=== PATIENT | male | born 1935 | race Caucasian/White ===

== ENCOUNTER 2019-11-25 06:15 | Emergency (ER) | payer MEDICARE, SELFPAY ==
[2019-11-25] VITALS (7 sets, daily range): BP systolic 107–131; BP diastolic 65–82; PULSE 66–98; RESP 11–18; TEMP 36.9; O2SAT 92–100
--- NOTE | ~2019-11-25 | XR_ITS ---
XR chest 2V DATE: 11/25/2019 06:41 INDICATION: Chest pain TECHNIQUE: PA and lateral views COMPARISON: 06/23/2018 PA and lateral chest FINDINGS: The lungs are hyperinflated suggesting obstructive airways disease. No pulmonary infiltrate or consolidation, pleural effusion or pulmonary vascular congestion or pneumothorax is detected. Normal heart size. Aortic tortuosity. No hilar or mediastinal enlargement. IMPRESSION: Bilateral hyperinflation suggesting COPD; no active cardiac pulmonary disease or signific ant change since 06/23/2018 Reviewed, dictated and finalized at location A. IMPRESSION: Bilateral hyperinflation suggesting COPD; no active cardiac pulmona ry disease or significant change since 06/23/2018
--- NOTE | 2019-11-25 06:21 | ECG_ITS ---
Measurements Intervals [place] Rate: 93 P: 66 CT: 188 QRS: -67 QRSD: 74 T: 50 QT: 313 QTc: 390 Interpretive Statements SINUS RHYTHM VENTRICULAR PREMATURE COMPLEXES EARLY PRECORDIAL R/S TRANSITION LOW QRS VOLTAGE- DIFFUSE LEADS INFERIOR INFARCT, AGE INDETERMINATE ABNORMAL ECG Electronically Signed On 11-25-2019 7:10:49 CDT by Bola Cedillo D.O.
[2019-11-25 06:31] LABS: Basophils Percent Auto 0.4 % (0.2-1.2); Eosinophils Absolute Auto 0.2 K/mm3 (0-0.3); Eosinophils Percent Auto 2.2 % (0-4.4); Hematocrit 41.3 % (42.0-52.0); Immature Granulocyte Absolute 0.02 K/mm3 (0.00-0.031); Immature Granulocyte Percent A 0.3 % (0-0.5); Lymphocytes Absolute Auto 1.84 K/mm3 (0.9-3.2); Lymphocytes Percent Auto 23.8 % (18.3-44.2); Mean Corpuscular HGB Conc 33.9 g/dl (32-36); Mean Corpuscular Volume 91.6 fl (80-100); Mean Platelet Volume 12.7 fl (7.4-10.4); Monocytes Absolute Auto 0.5 K/mm3 (0.1-0.6); Neutrophils Absolute Auto 5.2 K/mm3 (1.3-6.7); Neutrophils Percent Auto 67.3 % (45.5-73.1); Platelet Count Result 181 k/mm3 (150-375); Red Blood Count 4.51 M/mm3 (4.6-6.20); Red Cell Distribution Width 15.1 % (11.5-14.5); White Blood Count 7.7 K/mm3 (4.5-10.0)
[2019-11-25 06:40] LABS: INR 1.1; Prothrombin Time 13.8 Seconds (11.1-14.7)
[2019-11-25 06:41] LABS: Partial Thromboplastin Time 26.5 SECONDS (22.3-36.8)
[2019-11-25 06:50] LABS: Blood Urea Nitrogen 21 mg/dL (9-20); Calcium 9.3 mg/dL (8.4-10.2); Carbon Dioxide 26 mmol/L (22-30); Chloride 105 mmol/L (98-107); Estimated CRCL calculation 40 ml/min; Estimated Glomerular Filt Rate 58; Glucose 105 mg/dL (75-110); Potassium 4.3 mmol/L (3.4-5.0); Sodium 136 mmol/L (137-145)
[2019-11-25 07:02] LABS: Troponin I < 0.012 ng/mL (0.000-0.034)
--- NOTE | 2019-11-25 07:12 | PC.NURSE ---
Care assumed at this time, report given by EMANI Jean Baptiste
--- NOTE | 2019-11-25 07:32 | ED.GENADULT ---
HPI - General Adult General Chief complaint: Chest Pain Stated complaint: CP Time Seen by Provider: 11/25/19 06:20 Source: patient History of Present Illness HPI narrative: Patient is a 84 y/o male complaining of epigastric abdominal pain since last night. He rates his pain as 8/10. There is no pain radiation. There is no alleviating or exacerbating factor. His pain is currently resolved. He denies any nausea, vomiting or diarrhea. Related Data Home Medications Medication Instructions Recorded Confirmed naproxen 250 mg PO BID 11/25/19 Allergies Allergy/AdvReac Type Severity Reaction Status Date / Time No Known Allergies Allergy Verified 11/25/19 06:30 Review of Systems Constitutional: Constitutional: Denies chills, Denies fever(s), Denies headache(s) and Denies weakness Eyes: Eyes: Denies blurry vision ENT: Denies headache(s) and Denies neck pain Cardiovascular: Cardiovascular: Denies chest pain and Denies dyspnea Respiratory: Respiratory: Denies cough and Denies dyspnea Gastrointestinal: Gastrointestinal: Reports as per HPI, Reports abdominal pain, Denies diarrhea, Denies nausea and Denies vomiting Genitourinary: Genitourinary: Denies hematuria and Denies dysuria Musculoskeletal: Musculoskeletal: Denies back pain and Denies neck pain Neurologic: Denies headache(s) and Denies weakness [facility] Social History Social History Smoking status: Former smoker Alcohol intake: current Exam Const: General: no acute distress and well developed Orientation/consciousness: oriented to person, oriented to place, oriented to time and patient oriented x3 HENMT: Head: normocephalic Ears: external ears normal General nose exam: Normal external nose present Eyes: General: appearance normal, both eyes and all related structures Conjunctivae: conjunctivae normal Neck: Neck: normal visual inspection and full ROM Chest: Chest palpation & inspection: normal inspection of the chest and no tenderness Resp: Effort & Inspection: normal respiratory effort Auscultation: clear to auscultation bilaterally Cardio: Rate: regular rate Rhythm: regular rhythm GI: GI Palp: No abdominal tenderness and Yes Soft to palpation Skin: General skin exam: normal color and turgor normal Neuro: General: oriented to person, oriented to place, oriented to time and patient oriented x3 Cognition (Neuro): normal cognition Extrem: General: normal to inspection, full ROM and no pedal edema Psych: Appearance: grossly normal Mental Status: mental status grossly normal Affect: normal affect Course Reevaluation(s) Reevaluation #1: Rechecked. Patient feels fine. He still has no pain at this time. Date: 11/25/19 Time: 08:19 Vital Signs Vital signs: Vital Signs Temperature 36.9 C 11/25/19 06:16 Pulse Rate 98 11/25/19 06:16 Respiratory Rate 11 L 11/25/19 06:16 Blood Pressure 131/76 11/25/19 06:16 Pulse Oximetry 93 11/25/19 06:16 Temperature 36.9 C 11/25/19 06:16 Pulse Rate 66 11/25/19 08:30 Respiratory Rate 18 11/25/19 08:30 Blood Pressure 112/65 11/25/19 08:30 Pulse Oximetry 100 11/25/19 08:30 Medical Decision Making Vital Signs Vital Signs: Vital Signs Temperature 36.9 C 11/25/19 06:16 Pulse Rate 98 11/25/19 06:16 Respiratory Rate 11 L 11/25/19 06:16 Blood Pressure 131/76 11/25/19 06:16 Pulse Oximetry 93 11/25/19 06:16 Temperature 36.9 C 11/25/19 06:16 Pulse Rate 66 11/25/19 08:30 Respiratory Rate 18 11/25/19 08:30 Blood Pressure 112/65 11/25/19 08:30 Pulse Oximetry 100 11/25/19 08:30 Lab Data Result diagrams: 11/25/19 06:25 11/25/19 06:25 Labs: Lab Results 11/25/19 11/25/19 11/25/19 Range/Units 06:24 06:25 06:25 WBC 7.7 (4.5-10.0) K/mm3 RBC 4.51 L (4.6-6.20) M/mm3 Hgb 14.0 (14.0-18.0) g/dL Hct 41.3 L (42.0-52.0) % MCV 91.6 (80-100
[2019-11-25 07:59] LABS: Lipase 139 U/L (23-300)
== END 2019-11-25 08:34 | disposition home or self-care (01) ==
PROVIDERS: Emergency Provider Emergency Medicine; PCP Family Medicine
DX: R10.13 Epigastric pain (principal)
CPT/HCPCS: 36415; 71046; 80048; 83690; 84484; 85025; 85610; 85730; 93005; 99284

== ENCOUNTER 2020-11-11 13:23 | Emergency (ER) | payer MEDICARE, SELFPAY ==
--- NOTE | ~2020-11-11 | CT_ITS ---
EXAMINATION: CT brain wo con DATE: 11/11/2020 14:37 INDICATION: Fall. Right forehead hematoma TECHNIQUE: Computed tomography (CT) of the head was performed without intravenous contrast. The mA wa s adjusted according to patient size. Iterative reconstruction technique was employed. Exam dose: 83 2.33 mGy-cm total exam DLP. COMPARISON: 05/02/2017 CT brain FINDINGS: Chronic cerebellar and bilateral frontal lobe chronic infarcts. There is nonspecific diminished attenuation of the subcortical and periventricular cerebral white mat ter, likely due to chronic small vessel ischemic changes. Bilateral carotid siphon and supraclinoid i nternal carotid artery calcifications are noted. No intracranial mass lesion or hemorrhage or interval cerebrovascular accident is evident. No midline shift or mass effect effect. No subdural or epidural hematoma. Right facial fractures are noted, with blood level in the right maxillary sinus. No fracture of the cranial vault is evident. IMPRESSION: Right facial fractures, blood level in the right maxillary sinus Chronic cerebellar and bilateral frontal infarcts Cerebral atherosclerosis and chronic small vessel ischemic changes of the cerebral white matter Cerebellar and cerebral atrophy Reviewed, dictated and finalized at Location [facility]. Reviewed, dictated and finalized at location A. ESALE REPRESENTATIVE IMPRESSION: Right facial fractures, blood level in the right maxillary sinus Chronic cerebellar and bilateral frontal infarcts Cerebral atherosclerosis and chronic small vessel ischemic changes of the cereb ral white matter Cerebellar and cerebral atrophy
--- NOTE | ~2020-11-11 | CT_ITS ---
EXAMINATION: CT facial bones wo con DATE: 11/11/2020 14:37 INDICATION: Fall. Right sided hematoma TECHNIQUE: Computed tomography (CT) of the facial bones and maxillofacial region was performed withou t intravenous contrast. Automated exposure control and iterative reconstruction technique were employ ed. Exam dose: 400.97 mGy-cm total exam DLP. COMPARISON: None. FINDINGS: There is a nondisplaced fracture of the right inferior orbital rim. There is a nondisplaced fracture at the anterolateral wall of the right orbit. There is a depressed fracture of the anterior wall of the right maxillary sinus and depressed fractur e of the lateral wall the right maxillary sinus as well, with fluid level in the right maxillary sinu s consistent with blood. Depressed fracture of the right zygomatic arch. The frontozygomatic sutures are intact bilaterally. The frontozygomatic sutures are intact. No mandibular fracture. Normal alignment at the temporomandibular joints. No cervical spine fracture is evident. Multilevel degenerative disc disease of the cervical spine relatively sparing only C2-3. There is min imal anterolisthesis at C2-3. There is mild retrolisthesis at C3-4 and C4-5. There is degenerative ch nicole at the apophyseal joints throughout the cervical spine and well as prominent degenerative change at the uncovertebral joints. IMPRESSION: Fracture of right inferolateral orbital wall, right inferior orbital rim, depressed ante rior and lateral wall right maxillary sinus fractures and depressed right zygomatic arch fracture Reviewed, dictated and finalized at [facility]. Reviewed, dictated and finalized at location A. ER GUIDE IMPRESSION: Fracture of right inferolateral orbital wall, right inferior orbit al rim, depressed anterior and lateral wall right maxillary sinus fractures and depressed right zygomatic arch fracture
--- NOTE | ~2020-11-11 | CT_ITS ---
EXAMINATION: CT cervical spine wo con DATE: 11/11/2020 17:33 INDICATION: Head injury. TECHNIQUE: Computed tomography (CT) of the cervical spine was performed without intravenous contrast. Automated exposure control and iterative reconstruction technique were employed. The dose-length pro duct was 327.22 mGy-cm. COMPARISON: CT cervical spine 04/26/2017 FINDINGS: There is mild scarring at the lung apices. There is kyphosis of cervical spine. There is 2 mm anterolisthesis of C2 on C3. Vertebral body heights are normal. There is moderately decreased disc height at C3-C4 and C4-C5 and severely decreased disc height at C5-C6 and C6-C7. The following disc levels are specifically discussed: C2-C3: There is mild left uncovertebral joint osteoarthritis. There is severe bilateral facet joint o steoarthritis. There is mild right and moderate left neural foraminal stenosis. There is mild central canal stenosis. C3-C4: There is severe bilateral uncovertebral joint osteoarthritis. There is mild right and severe l eft facet joint osteoarthritis. There is moderate bilateral neural foraminal stenosis. There is moder ate central canal stenosis. C4-C5: There is severe bilateral uncovertebral joint osteoarthritis. There is moderate right and anastasia re left facet joint osteoarthritis. There is moderate bilateral neural foraminal stenosis. There is m ild central canal stenosis. C5-C6: There is severe bilateral uncovertebral joint osteoarthritis. There is mild bilateral facet oscar int osteoarthritis. There is moderate bilateral neural foraminal stenosis. There is mild central kb l stenosis. C6-C7: There is severe bilateral uncovertebral joint osteoarthritis. There is mild bilateral facet oscar int osteoarthritis. There is moderate bilateral neural foraminal stenosis. There is moderate central canal stenosis. C7-T1: There is no uncovertebral joint osteoarthritis. There is severe right and mild left facet join t osteoarthritis. There is mild right neural foraminal stenosis. There is no central canal stenosis. IMPRESSION: 1. No fracture. 2. Severe cervical spondylosis. Reviewed, dictated and finalized at location A. T STOCKMAN
--- NOTE | ~2020-11-11 | XR_ITS ---
EXAMINATION: XR hand RT min 3V DATE: 11/11/2020 17:45 INDICATION: Right hand pain. TECHNIQUE: 3 views of right hand on 4 radiographs were obtained. COMPARISON: None. FINDINGS: There is radial subluxation of second-fourth distal phalanges with respect to the middle ph alanges. No fracture. There is mild osteoarthritis of first carpometacarpal joint and most of the int erphalangeal joints and metacarpophalangeal joints. There is moderate osteoarthritis of second-fourth distal interphalangeal joints and second and third metacarpophalangeal joints. IMPRESSION: 1. Polyarticular osteoarthritis. Reviewed, dictated and finalized at location A. CAL FILE CLERK
[2020-11-11 14:17] VITALS: BP 145/85; PULSE 83; RESP 16; TEMP 36.9; O2SAT 97
--- NOTE | 2020-11-11 17:12 | ED.FALL ---
HPI - Fall General Chief Complaint: Fall Stated Complaint: fall, head injury, last night Time Seen by Provider: 11/11/20 16:57 Source: patient Mode of arrival: ambulatory Limitations: no limitations History of Present Illness HPI Narrative: This is a 85 year old male that presents to the ER for a fall last night with head injury. Reports he was walking down steps and missed the last step. Reports falling forward and hitting his face on the concrete. Reports bruising under the right eye. Reports pain in the right hand as well. Denies vision changes, vomiting, numbness or weakness. Related Data Allergies Allergy/AdvReac Type Severity Reaction Status Date / Time No Known Allergies Allergy Verified 11/11/20 17:22 Review of Systems Review of Systems: Narrative: CONSTITUTIONAL: Denies fever EYES: Denies visual changes GASTROINTESTINAL: Denies vomiting MUSCULOSKELETAL: Reports joint pain, and myalgia. NEUROLOGIC: Denies headache, numbness, or weakness. All systems reviewed & are unremarkable except as noted in HPI and below PMFSH Surgical History Surgical History (Updated 11/11/20 @ 17:18 by Susi De La Cruz PA-C) History of hernia repair Social History Social History (Updated 11/11/20 @ 17:18 by Susi De La Cruz PA-C) Smoking status: Current every day smoker Alcohol intake: current Exam Narrative: Exam Narrative: GENERAL: Elderly, well-nourished, and in no acute distress. HEAD: Normocephalic. Bruising over the right maxillary sinus and zygomatic bone EYES: PERRLA and EOMI. ENT: Dried blood in the right nare. Mucous membranes moist. Oropharynx with dried blood. Bilateral TMs pearly montalvo non-bulging NECK: Supple. No adenopathy or masses. CHEST: Clear to auscultation. No respiratory distress. No wheezes rales or rhonchi HEART: Regular rate and rhythm. No murmur heard. Normal peripheral pulses. BACK: No midline thoracic or lumbar spine tenderness EXTREMITIES: Normal range of motion. No edema. SKIN: Warm, dry, no rash. NEURO: No focal deficits. Alert and oriented x3. Cranial nerves II through XII grossly intact PSYCH: Normal mood and affect Course Consultations Consultation #1: Spoke with Dr. Ortiz about patient and work-up. Reports he does not usually deal with facial fractures, patient will likely need to follow-up with an ENT doctor over in [place]. Date: 11/11/20 Time: 18:00 Consultation #2: Spoke with Dr. Magaña about patient and work-up with [facility]. Patient will follow up in clinic. He will be called with an appointment. Would like patient to be advised to avoid blowing the nose and will start patient on an oral antibiotic. Date: 11/11/20 Time: 18:14 Vital Signs Vital signs: Vital Signs Temperature 98.5 F 11/11/20 14:17 Pulse Rate 83 11/11/20 14:17 Respiratory Rate 16 11/11/20 14:17 Blood Pressure 145/85 H 11/11/20 14:17 Pulse Oximetry 97 11/11/20 14:17 Temperature 98.5 F 11/11/20 14:17 Pulse Rate 88 11/11/20 18:01 Respiratory Rate 16 11/11/20 18:01 Blood Pressure 132/93 H 11/11/20 18:01 Pulse Oximetry 99 11/11/20 18:01 MDM - Fall MDM Narrative Medical decision making narrative: Patient presents the emergency department for head injury and right hand pain after a fall last night. Patient is neurologically intact. Vitals are stable. CT scan of the brain is without acute intracranial findings. CT scan of the cervical spine is without acute osseous abnormalities. Right hand x-ray is also without acute osseous abnormalities. CT scan of the facial bones shows a fracture of the right inferior lateral orbital wall and right inferior orbital rim, these are nondisplaced. Patient has no visual changes. Is complaining of no eye pain. Normal extraocular movements without pain. Scan also shows depressed anterior and lateral wall fractures of the right maxillary sinus and a depressed right zygomatic arch fracture. Patient and family updated on case findings. Spoke
[2020-11-11 17:19] VITALS: BP 143/88; PULSE 85; RESP 16; O2SAT 97
[2020-11-11 18:01] VITALS: BP 132/93; PULSE 88; RESP 16; O2SAT 99
== END 2020-11-11 18:51 | disposition home or self-care (01) ==
PROVIDERS: Emergency Provider Emergency Medicine; PCP Family Medicine
DX: S02.31XA Fracture of orbital floor, right side, initial encounter for closed fracture (principal); S02.841A Fracture of lateral orbital wall, right side, initial encounter for closed fracture; S02.40CA Maxillary fracture, right side, initial encounter for closed fracture; S02.40EA Zygomatic fracture, right side, initial encounter for closed fracture; F17.200 Nicotine dependence, unspecified, uncomplicated; M19.041 Primary osteoarthritis, right hand; M18.9 Osteoarthritis of first carpometacarpal joint, unspecified; W10.9XXA Fall (on) (from) unspecified stairs and steps, initial encounter
CPT/HCPCS: 70450; 70486; 72125; 73130; 99284; A9270

== ENCOUNTER 2020-12-21 14:45 | Outpatient (CLI) | payer MEDICARE, SELFPAY ==
--- NOTE | ~2020-12-21 | XR_ITS ---
EXAMINATION: XR hip RT min 2V DATE: 12/21/2020 15:34 INDICATION: Right hip pain TECHNIQUE: Two views of right hip were obtained. COMPARISON: None. FINDINGS: Bone alignment is normal. There is no fracture. Mild hip osteoarthritis is present. IMPRESSION: 1. Mild hip osteoarthritis. Reviewed, dictated and finalized at location A. IMPRESSION: 1. Mild hip osteoarthritis.
== END 2020-12-21 14:46 ==
PROVIDERS: PCP Family Medicine; Visit Provider Nurse Practitioner
DX: M16.11 Unilateral primary osteoarthritis, right hip (principal)
CPT/HCPCS: 73502

== ENCOUNTER 2021-02-09 09:03 | Outpatient (CLI) | payer MEDICARE, SELFPAY ==
--- NOTE | 2021-02-09 09:09 | ECG_ITS ---
Measurements Intervals [place] Rate: 71 P: 76 VT: 191 QRS: -57 QRSD: 82 T: 56 QT: 363 QTc: 395 Interpretive Statements SINUS RHYTHM VENTRICULAR PREMATURE COMPLEX LEFT AXIS DEVIATION EARLY PRECORDIAL R/S TRANSITION LOW QRS VOLTAGE IN LIMB LEADS BASELINE ARTIFACT- I, II, III, AVR, AVL, AVF BORDERLINE ECG Electronically Signed On 02-09-2021 10:13:33 CDT by Bola Cedillo D.O.
== END 2021-02-09 09:04 | disposition home or self-care (01) ==
LOC: ANHSURGERY 09:08
PROVIDERS: PCP Family Medicine; Visit Provider Urology
DX: Z01.810 Encounter for preprocedural cardiovascular examination (principal); Z86.79 Personal history of other diseases of the circulatory system; I49.3 Ventricular premature depolarization
CPT/HCPCS: 93005

== ENCOUNTER → 2021-02-13 02:13 | Outpatient (CLI) | payer MEDICARE, SELFPAY ==
[2021-02-13 17:04] LABS: SARS-CoV-2 RNA PCR Negative
== END ==
PROVIDERS: PCP Family Medicine; Visit Provider Urology
DX: Z01.812 Encounter for preprocedural laboratory examination (principal); Z20.822 Contact with and (suspected) exposure to COVID-19
CPT/HCPCS: C9803; U0003; U0005

== ENCOUNTER 2021-02-16 01:02 | Day surgery (SDC) | payer MEDICARE, SELFPAY ==
[2021-02-02 12:44] VITALS: BMI 22.3
--- NOTE | 2021-02-07 07:36 | P.HP_ITS ---
History of Present Illness History of Present Illness Consent: Risks, benefits, and alternatives have been discussed and questions answered. Patient agrees to proceed with procedure. Chief complaint: phimosis Narrative: Dominic Lazaro is a 85 year old male who I saw for the 1st time in January 2021 when he presented with a several year history of progressive difficulty retracting his foreskin. On initial exam myself he had advanced phimosis. After discussion of therapeutic options, including dorsal slit, doing nothing and circumcision he has elected for the latter. He is aware the risk including , among other things, postoperative bleeding. [facility] Surgical History Surgical History History of hernia repair Social History Social History Smoking status: Current every day smoker Tobacco type: cigars Additional smoking assessment comments: 2 CIGARS/DAY ~60 YEARS Alcohol intake: former Substance use: never Additional living arrangements comments: DAUGHTER Spiritual care concerns: No Meds Home Medications and Allergies Home Medications Medication Instructions Recorded Confirmed Type meloxicam 7.5 mg PO DAILY 02/02/21 02/02/21 History tramadol 50 mg PO Q8-10H PRN 02/02/21 02/02/21 History Allergies Allergy/AdvReac Type Severity Reaction Status Date / Time No Known Allergies Allergy Verified 02/02/21 12:42 Assessment and Plan Assessment and plan (1) Phimosis: Code(s): N47.1 - Phimosis Status: Acute Assessment and Plan: * Circumcision
[2021-02-16] VITALS (8 sets, daily range): BP systolic 124–155; BP diastolic 72–100; PULSE 63–82; RESP 8–16; TEMP 36.1–36.6; O2SAT 95–100; BMI 23.8
--- NOTE | 2021-02-16 06:30 | WPDHPUPDATE1 ---
History and Physical Update Update Date/Time: 02/16/21 06:30 History and Physical has been reviewed, including an updated exam of the patient. There are NO changes in the patient's condition. Risks, benefits, and alternatives have been discussed and questions answered. Patient agrees to proceed with procedure.
[2021-02-16] MEDS: LACTATED RINGERS 1,000 ML 30 ML IV CONT (06:40)
--- NOTE | 2021-02-16 06:58 | P.PNAN_ITS ---
Anes - Initial Pre Proc Eval Procedure: Operation Date: 02/16/21 07:30 Proposed Procedures p Circumcision - Raulito Plummer MD Date/Time: 02/16/21 06:58 Surgeon: Raulito Pulmmer MD Pre Op Diagnosis: phimosis Patient Data Age: 85 Gender: M Height: 5 ft 4 in Weight: 62.8 kg Allergies Allergy/AdvReac Type Severity Reaction Status Date / Time No Known Allergies Allergy Verified 02/16/21 06:29 Home Medications Medication Instructions Recorded Confirmed Type meloxicam 7.5 mg PO DAILY 02/02/21 02/02/21 History tramadol 50 mg PO Q8-10H PRN 02/02/21 02/16/21 History Patient hx anesthesia problems: none Family hx anesthesia problems: none [facility] Past Medical History Medical History COPD (chronic obstructive pulmonary disease) Dementia Surgical History Surgical History History of hernia repair Social History Social History Smoking status: Current every day smoker Tobacco type: cigars Additional smoking assessment comments: 2 CIGARS/DAY ~60 YEARS Alcohol intake: current Alcohol use details: HEAVY DRINKER IN 20'S-40'S Substance use: never Living arrangements: with family Additional living arrangements comments: DAUGHTER Spiritual care concerns: No Anes - Eval Final PreProcedure Day of Procedure 02/16/21 06:58 Patient weight: normal Heart: regular rate and rhythm Lungs: decreased breath sounds Airway: Mallampati scale class II Neurological: other (alert) Last oral intake: >/= 8 hours ASA classification: III Emergent: no Anesthetic plan: proceed Anesthesia type and monitoring: general LMA and standard monitoring Informed Consent: The patient's anesthetic plan and its attendant risks and benefits were discussed with the patient/family/POA. Questions were solicited and answers provided to the satisfaction of the patient/family/POA.
[2021-02-16] MEDS: ceFAZolin 2 GM/D5W 50 ML 2 GM/50 ML BAG IVPB (07:28)
[2021-02-16] MEDS: BUPIVACAINE HCL 0.5% PF 30 ML VIAL INFILTRATE (07:52)
--- NOTE | 2021-02-16 08:11 | P.OP_ITS ---
Procedure Note - Detailed Date of procedure: 02/16/21 Pre-op diagnosis: phimosis Post-op diagnosis: same Procedure performed: Circumcision Description of procedure: The patient is brought to the operative suite areas prepped and draped in a routine sterile fashion while in a supine position. The lines of circumcision are outlined using a sterile marking pen. 2 circumferential circumcising incisions were made and carried down to [facility]'s f ascia. The penile foreskin is circumferentially excised. Hemostasis is obtained with electric cautery. The edges of the penile skin reapproximated using a combination of running and interrupted 4-0 chromic. A penile block is administered at the base of the penis with 0.25% bupivacaine. The patient was taken to the recovery room in good condition. EBL was approximately 10cc. Anesthesia: GLMA Surgeon: Raulito Plummer MD Fisheries Director: None Estimated blood loss (mL): 5 Drains: No Packing: No Pathology: yes Complications: No immediate complications Condition: stable Disposition: PACU
== END 2021-02-16 09:59 | disposition home or self-care (01) ==
PROVIDERS: PCP Family Medicine; Visit Provider Urology
PROC: (CPT 54161; principal; 2021-02-16 07:30)
DX: N47.1 Phimosis (principal); N47.7 Other inflammatory diseases of prepuce; F17.290 Nicotine dependence, other tobacco product, uncomplicated
CPT/HCPCS: 54161; 88305; 93005; A9270; C9803; J0690; J1100; J2405; J2704; J3010; J7120; U0003; U0005

== ENCOUNTER 2021-06-04 01:26 | Inpatient (IN) | payer MEDICARE, SELFPAY ==
[2021-06-04] VITALS (15 sets, daily range): BP systolic 96–139; BP diastolic 64–97; PULSE 62–91; RESP 15–21; TEMP 36.3–36.7; O2SAT 93–98; BMI 19.0
--- NOTE | ~2021-06-04 | XR_ITS ---
EXAMINATION: XR chest 2V DATE: 06/04/2021 01:53 INDICATION: Chest pain TECHNIQUE: PA and lateral views of the chest are obtained. COMPARISON: 11/25/2019 FINDINGS: The lungs are hyperinflated but free of acute opacities. There is no pleural effusion or pn eumothorax. The cardiomediastinal silhouette is normal. There is moderate thoracic spondylosis. IMPRESSION: 1. No acute cardiopulmonary abnormality. Reviewed, dictated and finalized at location A.
--- NOTE | 2021-06-04 01:35 | ECG_ITS ---
Measurements Intervals [place] Rate: 80 P: 72 MA: 194 QRS: -29 QRSD: 78 T: 51 QT: 343 QTc: 398 Interpretive Statements SINUS RHYTHM POSSIBLE LEFT ATRIAL ENLARGEMENT EARLY PRECORDIAL R/S TRANSITION LOW VOLTAGE- DIFFUSE LEADS CONSIDER INFERIOR INFARCT, AGE INDETERMINATE BASELINE ARTIFACT- I, II, AVR ABNORMAL ECG Electronically Signed On 06-04-2021 7:05:52 CDT by Bola Cedillo D.O.
[2021-06-04 01:53] LABS: Basophils Percent Auto 0.2 % (0.2-1.2); Eosinophils Absolute Auto 0.2 K/mm3 (0-0.3); Eosinophils Percent Auto 1.9 % (0-4.4); Hematocrit 41.6 % (42.0-52.0); Hemoglobin 14.3 g/dL (14.0-18.0); Immature Granulocyte Absolute 0.03 K/mm3 (0.00-0.031); Immature Granulocyte Percent A 0.3 % (0-0.5); Lymphocytes Absolute Auto 1.92 K/mm3 (0.9-3.2); Lymphocytes Percent Auto 19.9 % (18.3-44.2); Mean Corpuscular HGB Conc 34.4 g/dl (32-36); Mean Corpuscular Volume 93.1 fl (80-100); Mean Platelet Volume 11.8 fl (7.4-10.4); Monocytes Absolute Auto 0.6 K/mm3 (0.1-0.6); Monocytes Percent Auto 6.4 % (2.6-8.5); Neutrophils Absolute Auto 6.9 K/mm3 (1.3-6.7); Neutrophils Percent Auto 71.3 % (45.5-73.1); Platelet Count Result 199 k/mm3 (150-375); Red Blood Count 4.47 M/mm3 (4.6-6.20); Red Cell Distribution Width 15.4 % (11.5-14.5); White Blood Count 9.7 K/mm3 (4.5-10.0)
[2021-06-04 02:05] LABS: Anion Gap 7 mmol/L (8-16); Blood Urea Nitrogen 18 mg/dL (9-20); Carbon Dioxide 28 mmol/L (22-30); Chloride 106 mmol/L (98-107); Estimated CRCL calculation 40 ml/min; Estimated Glomerular Filt Rate > 60; Glucose 112 mg/dL (65-110); Potassium 4.4 mmol/L (3.4-5.0); Sodium 141 mmol/L (137-145)
[2021-06-04 02:16] LABS: Troponin I 0.026 ng/mL (0.000-0.034)
[2021-06-04] MEDS: ASPIRIN 81 MG CHEWABLE TABLET 324 MG PO (03:11)
[2021-06-04] MEDS: MORPHINE SULFATE (*CRX) 2 MG/ML INJ IV PUSH (03:12)
[2021-06-04] MEDS: NITROGLYCERIN SL 0.4 MG TABLET SUBLINGUAL (03:12)
[2021-06-04 03:41] LABS: Prothrombin Time 13.5 Seconds (11.1-14.7)
[2021-06-04 03:42] LABS: Partial Thromboplastin Time 25.6 SECONDS (22.3-36.8)
[2021-06-04 03:45] LABS: Alanine Aminotransferase 103 U/L (4-50); Albumin Level 4.1 g/dL (3.5-5.1); Alkaline Phosphatase 67 U/L (38-126); Aspartate Amino Transferase 167 U/L (17-59); Bilirubin Direct 0.4 mg/dL (0-0.3); Bilirubin,Total 2.7 mg/dL (0.2-1.3); Lipase 224 U/L (23-300)
[2021-06-04 03:52] LABS: NT Pro B Type Natriuretic Pept 118 pg/mL (5-100)
[2021-06-04 04:22] LABS: Add Urine Microscopic? YES; Appearance Urine Clear (Clear); Bacteria Urine Trace /hpf; Bilirubin Urine 1+ (Negative); Blood Urine Negative (Negative); Color Urine Amber (Yellow); Glucose Urine UA Negative (Negative); Ketones Urine Negative (Negative); Leukocyte Esterase Ur Negative LEU/UL (Negative); Mucus Urine Heavy /lpf; Nitrate Urine Negative (Negative); Protein Urine 1+ mg/dL (Negative); RBC Urine 0-2 /hpf (0-2); Specific Grav Ur 1.025 (1.001-1.035); Squamous Epithelial Cell Urine Occasional /hpf (Few); WBC Urine 0-3 /hpf
[2021-06-04 04:47] LABS: Troponin I 0.042 ng/mL (0.000-0.034)
--- NOTE | 2021-06-04 05:04 | ED.GENADULT ---
HPI - General Adult General Chief complaint: Chest Pain Stated complaint: chest pain Time Seen by Provider: 06/04/21 02:38 History of Present Illness HPI narrative: Patient 86-year-old gentleman who presents the emergency department with chief complaint of chest pain. The patient states that 6:00 this evening he has been having discomfort in his chest patient states is not improved by anything nor is it worsened patient reports that it is a tightness and heaviness reports that 9 radiates patient states that has not had discomfort like this before family reports that he has had prior history of an MA but has no stents placed has not seen a cardiology for some time. Related Data Home Medications Medication Instructions Recorded Confirmed meloxicam 7.5 mg PO DAILY 02/02/21 02/02/21 tramadol 50 mg PO Q8-10H PRN 02/02/21 02/16/21 Allergies Allergy/AdvReac Type Severity Reaction Status Date / Time No Known Allergies Allergy Verified 06/04/21 02:15 Review of Systems Review of Systems: A 10 system review of systems was completed on the patient and is negative except for what is stated in the HPI. Nursing and ancillary documentation was reviewed. [facility] Past Medical History Medical History COPD (chronic obstructive pulmonary disease) Dementia Surgical History Surgical History History of hernia repair Social History Social History Smoking status: Current every day smoker Tobacco type: cigars Additional smoking assessment comments: 2 CIGARS/DAY ~60 YEARS Alcohol intake: current Alcohol use details: HEAVY DRINKER IN 20'S-40'S Substance use: never Additional living arrangements comments: DAUGHTER Spiritual care concerns: No Exam Narrative: GENERAL: Well-appearing, well-nourished, and in no acute distress. HEAD: Normocephalic, atraumatic. EYES: PERRLA and EOMI. ENT: Nares clear, no rhinorrhea or epistaxis. Mucous membranes moist. NECK: Supple. CHEST: Clear to auscultation. No respiratory distress. HEART: Regular rate and rhythm. No murmur heard. Normal peripheral pulses. ABDOMEN: Soft, nontender, nondistended, normal active bowel sounds. EXTREMITIES: Normal range of motion. No edema. SKIN: Warm, dry, no rash. NEURO: No focal deficits. Alert and oriented x3. PSYCH: Normal mood and affect. Course Course Emergency Course: EKG is sinus rhythm rate of [address] elevation or ST depression noted Vital Signs Vital signs: Vital Signs Temperature 36.5 C 06/04/21 01:30 Pulse Rate 88 06/04/21 01:30 Respiratory Rate 16 06/04/21 01:30 Blood Pressure 139/97 H 06/04/21 01:30 Pulse Oximetry 95 06/04/21 01:30 Temperature 36.5 C 06/04/21 01:30 Pulse Rate 70 06/04/21 04:30 Respiratory Rate 15 06/04/21 04:30 Blood Pressure 109/80 06/04/21 04:30 Pulse Oximetry 95 06/04/21 03:31 Medical Decision Making Vital Signs Vital Signs: Vital Signs Temperature 36.5 C 06/04/21 01:30 Pulse Rate 88 06/04/21 01:30 Respiratory Rate 16 06/04/21 01:30 Blood Pressure 139/97 H 06/04/21 01:30 Pulse Oximetry 95 06/04/21 01:30 Temperature 36.5 C 06/04/21 01:30 Pulse Rate 70 06/04/21 04:30 Respiratory Rate 15 06/04/21 04:30 Blood Pressure 109/80 06/04/21 04:30 Pulse Oximetry 95 06/04/21 03:31 Lab Data Result diagrams: 06/04/21 01:46 06/04/21 01:46 Labs: Lab Results 06/04/21 06/04/21 06/04/21 Range/Units 01:46 01:46 03:12 WBC 9.7 (4.5-10.0) K/mm3 RBC 4.47 L (4.6-6.20) M/mm3 Hgb 14.3 (14.0-18.0) g/dL Hct 41.6 L (42.0-52.0) % MCV 93.1 (80-100) fl MCH 32.0 (26-34) pg MCHC 34.4 (32-36) g/dl RDW 15.4 H (11.5-14.5) % Plt Count 199 (150-375) k/mm3 MPV 11.8 H (7.4-10.4) fl Immatu
[2021-06-04] MEDS: MORPHINE SULFATE (*CRX) 4 MG/ML INJ IV PUSH (05:08)
[2021-06-04] MEDS: ENOXAPARIN 60 MG/0.6 ML SYRINGE SUB-Q ×2 (06:44→19:11)
--- NOTE | 2021-06-04 07:42 | PC.NURSE ---
This patient, Dominic Lazaro, was admitted to IMU Room 205-01. Patient/family oriented to hospital policies and general routines including ID bracelet, bed and alarms, visiting hours, pain management, procedures, bathroom and other care routines, personal items, smoking policy, room service/diet, and visiting hours. Information on how to activate the Rapid Response Team has been discussed. Patient/Family are encouraged to report perceived risks to care and to ask questions if they do not understand what they are told or what they should do.
[2021-06-04 08:41] LABS: Troponin I 0.053 ng/mL (0.000-0.034)
[2021-06-04] MEDS: LORazepam INJ (*CRX) 2 MG/ML VIAL 1 MG IV PUSH (09:45)
[2021-06-04] MEDS: HALOPERIDOL LACTATE 5 MG/ML VIAL 2.5 MG IV PUSH (10:00)
--- NOTE | 2021-06-04 10:06 | PM.IMHP ---
H&P: HPI History of Present Illness Date/Time: 06/04/21 10:06 Chief Complaint: Chest pain Narrative: 86 years old male with history of coronary artery disease, dementia, COPD, arthritis was admitted through the emergency room with complaints of having midsternal chest pain going on off and on for the last few days. Pain is felt like pressure in the chest area and heaviness radiating to the back. He stand the pain occurs it lasts for about few minutes and then is relieved by itself. Then no exacerbating or relieving factors according to the patient. Patient denies any fever or chills. Patient denies any shortness of breath. Patient denies any abdominal pain nausea vomiting. Review of Systems Review of Systems: All systems reviewed & are unremarkable except as noted in HPI and below (the history and physical examination.) [facility] Past Medical History Medical History (Updated 06/04/21 @ 10:10 by Greg Camp MD) COPD (chronic obstructive pulmonary disease) Dementia Surgical History Surgical History History of hernia repair Social History Social History Smoking status: Current every day smoker Tobacco type: cigarettes Additional smoking assessment comments: 2 CIGARS/DAY ~60 YEARS Alcohol intake: current Alcohol use details: HEAVY DRINKER IN 20'S-40'S Substance use: never Additional living arrangements comments: DAUGHTER Spiritual care concerns: No Meds Home Medications and Allergies Home Medications Medication Instructions Recorded Confirmed Type tramadol 50 mg PO Q8-10H PRN 02/02/21 06/04/21 History Allergies Allergy/AdvReac Type Severity Reaction Status Date / Time No Known Allergies Allergy Verified 06/04/21 02:15 Vital Signs Vital Signs - 24 hr 06/04/21 01:30 06/04/21 02:45 06/04/21 02:46 Temperature 36.5 C Pulse Rate 88 79 76 Respiratory Rate 16 17 18 Blood Pressure 139/97 H 132/95 H Pulse Oximetry 95 96 98 06/04/21 03:17 06/04/21 03:30 06/04/21 03:31 Temperature Pulse Rate 82 75 79 Respiratory Rate 16 17 21 H Blood Pressure 115/84 Pulse Oximetry 95 95 95 06/04/21 04:05 06/04/21 04:26 06/04/21 04:30 Temperature Pulse Rate 91 73 70 Respiratory Rate 19 16 15 Blood Pressure 109/80 Pulse Oximetry 06/04/21 07:15 06/04/21 08:00 Temperature 36.4 C Pulse Rate 64 62 Respiratory Rate 20 18 Blood Pressure 96/67 L 103/72 Pulse Oximetry 97 98 Exam Const: General: cooperative and no acute distress Orientation/consciousness: oriented to person, oriented to place, oriented to time and patient oriented x3 HENMT: Head: normal to inspection Ears: hearing grossly normal bilaterally and external ears normal General nose exam: Normal external nose present Face and sinus: normal facial exam Mouth: Yes Normal oral and palatal mucosa present Eyes: General: appearance normal, both eyes and all related structures Neck: Neck: normal visual inspection and full ROM Chest: Chest palpation & inspection: normal inspection of the chest and normal palpation of entire chest wall Resp: Effort & Inspection: normal respiratory effort Auscultation: clear to auscultation bilaterally Cardio: Jugular venous distension: no JVD Palpation: normal PMI Rate: regular rate Heart sounds: S1 normal heart sound present and S2 normal heart sound present GI: Inspection: normal to inspection GI Palp: No abdominal tenderness Neuro: General: oriented to person, oriented to place, oriented to time and patient oriented x3 Cranial nerves: Yes CN's II-XII intact bilaterally Speech: normal speech Gait exam (Neuro): Normal gait present Motor exam (neuro): 5/5 motor strength present throughout Sensory Exam: normal sensation Psych: Appearance: grossly normal H&P: Results Labs Labs: Short CBC 06/04/21 Range/Units 01:46 WBC 9.7 (4.5-10.0) K/mm3 Hgb
--- NOTE | 2021-06-04 12:06 | PM.CNCAR ---
Assessment and Plan Additional Plan 86-year-old patient who appears quite disheveled and unkempt he is currently sedated after being combative earlier today on the floor. As such he is on incapable of providing any history. He has a very small troponin rise and a benign-looking ECG. There was reportedly some history of coronary disease we have no information about any of this. He is currently being treated with aspirin and anticoagulation which is appropriate. It is difficult for me to have any additional recommendations about the situation since I can not speak to the patient. I will try to see him tomorrow and formulate plans in terms of ischemia workup if necessary or appropriate at this time I have no specific recommendations as he is in a very poorly responsive state after receiving haloperidol Myles Jaquez MD [facility] History of Present Illness History of Present Illness Consult date/time: 06/04/21 12:06 Consult reason: chest pain Reason For Visit: chest pain,elevated troponin Narrative: This is an 86-year-old man I was requested to see this morning at the request of the hospitalist because of chest pain. The history is entirely obtained from reading the chart as the patient has currently been sedated in room 205 in the IMU when he is at the moment obtunded. Apparently he came to the emergency room brought in by family because of episodes of chest pain off and on for several days. The chart indicates there is a history of coronary artery disease, no details of this are in the chart and he apparently was brought to the emergency room for this reason. His electrocardiogram shows sinus rhythm without any significant ST or T-wave abnormalities. His troponin levels were slightly elevated prompting us to see him in consultation. Apparently this gentleman is demented and was extremely agitated on the floor earlier this morning he was combative and striking out at caregivers as such the hospitalist treated him with a dose of haloperidol. Following that he has been sleeping comfortably in bed he is minimally arousable at this time vital signs are stable. No other history is obtainable from the patient because he obviously has been sedated. He has a history of severe tobacco abuse and a chest x-ray evidence of impressive COPD Review of Systems Review of Systems: ROS unobtainable: Yes unobtainable due to medical condition PMF Past Medical History Medical History (Updated 06/04/21 @ 10:10 by Greg Camp MD) COPD (chronic obstructive pulmonary disease) Dementia Surgical History Surgical History History of hernia repair Social History Social History Smoking status: Current every day smoker Tobacco type: cigarettes Additional smoking assessment comments: 2 CIGARS/DAY ~60 YEARS Alcohol intake: current Alcohol use details: HEAVY DRINKER IN 20'S-40'S Substance use: never Additional living arrangements comments: DAUGHTER Spiritual care concerns: No Meds Home Medications and Allergies Home Medications Medication Instructions Recorded Confirmed Type tramadol 50 mg PO Q8-10H PRN 02/02/21 06/04/21 History Allergies Allergy/AdvReac Type Severity Reaction Status Date / Time No Known Allergies Allergy Verified 06/04/21 02:15 Vital Signs Vital Signs - 24 hr 06/04/21 01:30 06/04/21 02:45 06/04/21 02:46 Temperature 36.5 C Pulse Rate 88 79 76 Respiratory Rate 16 17 18 Blood Pressure 139/97 H 132/95 H Pulse Oximetry 95 96 98 06/04/21 03:17 06/04/21 03:30 06/04/21 03:31 Temperature Pulse Rate 82 75 79 Respiratory Rate 16 17 21 H Blood Pressure 115/84 Pulse Oximetry 95 95 95 06/04/21 04:05 06/04/21 04:26 06/04/21 04:30 Temperature Pulse Rate 91 73 70 Respiratory Rate 19 16 15 Blood Pressure 109/80 Pulse Oximetry 06/04/21 07:15 06/04/21 08:00 Tempera
[2021-06-04] MEDS: HALOPERIDOL LACTATE 5 MG/ML VIAL 2.5 MG IM (17:29)
--- NOTE | 2021-06-04 20:08 | PC.NURSE ---
Spoke with Delores TORRES regarding patient mentation. Patient currently not alert nor oriented. Unable to keep athletic monitor on. Patient keeps throwing monitor across the room at staff and the wall. Patient has not been incontinent since approximately 8am according to Alejandra JOAQUIN on day shift, Delores TORRES notified, straight cath patient as needed.
--- NOTE | 2021-06-04 21:00 | PC.NURSE ---
Patient removed IV access. Unable to place another one at this time. Delores TORRES aware.
[2021-06-05] VITALS (10 sets, daily range): BP systolic 113–149; BP diastolic 59–90; PULSE 69–102; RESP 16–18; TEMP 36–36.8; O2SAT 96–100; BMI 18.9
--- NOTE | 2021-06-05 04:24 | PC.NURSE ---
Patient refusing labs at this time.
[2021-06-05] MEDS: ENOXAPARIN 60 MG/0.6 ML SYRINGE SUB-Q (06:02)
[2021-06-05] MEDS: ASPIRIN 325 MG TABLET PO (08:25)
--- NOTE | 2021-06-05 08:50 | PM.PNCARD ---
Progress Note: A&P Additional Plan 86-year-old man seeing because of some concern regarding acute coronary syndrome because of chest pain intermittently for a number of days. Very modest troponin rise. This gentleman is clearly rather demented and is not capable of providing any history. I would recommend treating him in a very conservative medical fashion in this situation he is already on aspirin I am going to add a modest dose of beta-koko and atorvastatin to this regimen. I do not have any plans or expectation to bring him to the cardiac hospital laboratory technician so I will discontinue the anticoagulation. He will be followed clinically with you while he is in the hospital. I do not believe it is necessary or reasonable to pursue an ischemia workup in this patient who is unwilling to engage me in conversation Myles Jaquez MD [facility] Subjective Date/time seen: Date of service: 06/05/21 08:50 Interval history: Follow-up visit in this 86-year-old gentleman with: Episodes of intermittent chest pain for something like several days before coming to the emergency room over the weekend. Concern regarding acute coronary syndrome because of very small troponin rise to 0.05. Following admission this patient with apparently some history of dementia became very combative and had to be sedated and was incapable of providing any history to me yesterday. The this morning the patient is alert and responsive but wishes not to engage me in conversation. Exam Const: General: comfortable and no acute distress Other: Elderly white male appears to be comfortable in bed resting is not willing to answer questions or engage me in conversation. Very unkempt appearance HENMT: Mouth: Yes moist mucous membranes Eyes: Sclera: sclerae normal Pupils: Equal, round and reactive pupils present Neck: Neck: supple and no JVD Other: No carotid bruits Resp: Effort & Inspection: normal respiratory effort Other: Breath sounds are essentially clear diminished in both lung [place] no obvious pulmonary rales or wheezing Cardio: Rate: regular rate Rhythm: regular rhythm Other: PMI does not appear to be displaced no murmur GI: GI Palp: Yes Soft to palpation Auscultation: normal bowel sounds Neuro: Cognition (Neuro): normal cognition Objective Data Vital Signs Vital Signs: Vital Signs - 24 hr 06/04/21 12:00 06/04/21 14:00 06/04/21 16:00 Temperature 36.3 C L 36.7 C Pulse Rate 83 70 77 Respiratory Rate 18 16 Blood Pressure 115/64 121/74 Pulse Oximetry 93 97 06/04/21 20:00 06/05/21 00:00 06/05/21 04:00 Temperature 36.3 C L 36.7 C 36.8 C Pulse Rate 73 89 69 Respiratory Rate 16 16 16 Blood Pressure 113/68 149/90 H 147/59 H Pulse Oximetry 97 96 97 Intake/Output Intake/Output: Intake & Output 06/02/21 06/03/21 06/04/21 06/05/21 23:59 23:59 23:59 23:59 Intake Total 0 Output Total 300 300 Balance -300 -300 Meds/Results Medications: Active Medications Generic Name Dose Route Start Last Admin Trade Name Freq PRN Reason Stop Dose Admin Albuterol 2 puff 06/04/21 10:11 Albuterol Sulfate (*Sp) Aerosol 1 Puff INHALATION Q6HRT PRN Shortness Of Breath Aspirin 81 mg 06/06/21 08:00 Aspirin 325 Mg Tablet PO DAILY@0800 [facility] Atorvastatin Calcium 20 mg 06/05/21 09:00 Atorvastatin 20 Mg Tablet PO DAILY [facility] Metoprolol Succinate 25 mg 06/05/21 09:00 Metoprolol Succinate Ext Rel 25 Mg Tabcr PO QAM [facility] Morphine Sulfate 4 mg 06/04/21 05:56 Morphine Sulfate (*Crx) 4 Mg/Ml Inj IV PUSH Q2H PRN Pain Rated 7-10 Ondansetron HCl 4 mg 06/04/21 05:56 Ondansetron Inj 4 Mg/2 Ml Vial IV PUSH Q4H PRN Nausea Tramadol HCl 50 mg 06/04/21 10:00 Tramadol Hcl (*Crx) 50 Mg Tablet PO Q8H PRN Pain Rated 4-6 Radiology Results: ITS Impressions Chest X-Ray 06/04/21 08:08 IMPRESSION: 1. No acute cardiopulmonary abnormality. Quality VTE Prophylaxis
[2021-06-05 09:00] LABS: Alanine Aminotransferase 96 U/L (4-50); Albumin Level 4.1 g/dL (3.5-5.1); Alkaline Phosphatase 85 U/L (38-126); Anion Gap 9 mmol/L (8-16); Aspartate Amino Transferase 86 U/L (17-59); Bilirubin,Total 2.2 mg/dL (0.2-1.3); Blood Urea Nitrogen 18 mg/dL (9-20); Calcium 9.3 mg/dL (8.4-10.2); Carbon Dioxide 25 mmol/L (22-30); Chloride 104 mmol/L (98-107); Estimated CRCL calculation 42 ml/min; Estimated Glomerular Filt Rate > 60; Glucose 79 mg/dL (65-110); Potassium 3.9 mmol/L (3.4-5.0); Sodium 138 mmol/L (137-145)
[2021-06-05 09:42] LABS: Hepatitis B Surface Antigen Negative (Negative)
[2021-06-05 09:48] LABS: HAV RESULT Negative (Negative); Hepatitis B Core IgM Result Negative (Negative)
[2021-06-05 09:59] LABS: Hepatitis C Virus Antibody Negative (Negative)
[2021-06-05] MEDS: METOPROLOL SUCCINATE EXT REL 25 MG TABCR PO (10:48)
[2021-06-05] MEDS: ATORVASTATIN 20 MG TABLET PO (10:48)
[2021-06-06 04:00] VITALS: BP 117/65; PULSE 82; RESP 16; TEMP 36.4; O2SAT 97
[2021-06-06 08:20] VITALS: PULSE 68
[2021-06-06] MEDS: METOPROLOL SUCCINATE EXT REL 25 MG TABCR PO (08:20)
[2021-06-06] MEDS: ATORVASTATIN 20 MG TABLET PO (08:20)
[2021-06-06] MEDS: ASPIRIN 81 MG CHEWABLE TABLET PO (08:20)
[2021-06-06 08:41] VITALS: BP 128/86; PULSE 68; RESP 24; TEMP 35.8; O2SAT 92
[2021-06-06 09:41] VITALS: O2SAT 94
--- NOTE | 2021-06-08 19:30 | PM.DS ---
DS: Admitting Diagnosis Discharge Date 06/06/21 Admitting Diagnosis Chest pain DS: Discharge Diagnosis Discharge Diagnosis (1) Elevated troponin: Code(s): R77.8 - Other specified abnormalities of plasma proteins Status: Acute (2) Chest pain: Qualifiers: Chest pain type: unspecified Qualified Code(s): R07.9 - Chest pain, unspecified Code(s): R07.9 - Chest pain, unspecified Status: Acute DS: Summary Hospital Course Reason for hospitalization: Chest pain. Hospital Course: This is an 86- year old gentleman with a past medical history including but not limited to coronary artery disease, dementia, COPD, arthritis who was admitted through the emergency room on 06/04/2021 with complaints of having midsternal chest pain going on off and on for the last few days prior to presentation. Pain was described like pressure in the chest area and heaviness radiating to the back. He reports that the pain occurs intermittently, lasting for about few minutes and then is relieved by itself. Then no exacerbating or relieving factors according to the patient. Patient denies any fever or chills. Patient denies any shortness of breath. Patient denies any abdominal pain nausea vomiting. Troughout admission, there were very modest troponin rise. This gentleman is demented and is not capable of providing any history. He was managed conservatively with low dose aspirin, beta-koko and atorvastatin. Patient was not a candidate for interventional cardiology or any aggressive management. He worked with PT daily for his generalized weakness and deconditioning and was discharged with home health care. Status at Discharge Functional status at discharge: uses cane/walker Overall status at discharge: patient is progressing back to baseline Time Spent with Patient Time attestation: Total time spent providing and/or coordinating discharge services: Time spent: Less than 30 minutes Exam Const: General: cooperative and no acute distress Orientation/consciousness: oriented to person, oriented to place, oriented to time and patient oriented x3 HENMT: Head: normal to inspection Ears: hearing grossly normal bilaterally and external ears normal General nose exam: Normal external nose present Face and sinus: normal facial exam Mouth: Yes Normal oral and palatal mucosa present Eyes: General: appearance normal, both eyes and all related structures Neck: Neck: normal visual inspection and full ROM Chest: Chest palpation & inspection: normal inspection of the chest and normal palpation of entire chest wall Resp: Effort & Inspection: normal respiratory effort Auscultation: clear to auscultation bilaterally Cardio: Jugular venous distension: no JVD Palpation: normal PMI Rate: regular rate Heart sounds: S1 normal heart sound present and S2 normal heart sound present GI: Inspection: normal to inspection Neuro: General: oriented to person, oriented to place, oriented to time and patient oriented x3 Cranial nerves: Yes CN's II-XII intact bilaterally Speech: normal speech Gait exam (Neuro): Normal gait present Motor exam (neuro): 5/5 motor strength present throughout Sensory Exam: normal sensation Psych: Appearance: grossly normal DS: Data Data Completed and Pending Completed studies during hospitalization: ITS Impressions Chest X-Ray 06/04/21 08:08 IMPRESSION: 1. No acute cardiopulmonary abnormality. Pending studies at discharge: none Discharge Plan Discharge Attending physician on discharge: Avis Armstrong Consulting providers: Myles Jaquez ; Greg Camp ; Elmer Navarrete ; Bola Cedillo Discharging Clinician: Avis Armstrong Anticipated Discharge Date/Time: 06/06/21 13:00 Patient Disposition: Home Health Service Activity: january shower Diet: regular Wound Care Instructions: follow printed instructions Discharge Instructions: Per Care Coordination. Pt. to have [facility]
--- NOTE | 2021-06-30 09:21 | P.PNIM_ITS ---
Progress Note: A&P Assessment and Plan (1) Elevated troponin: Code(s): R77.8 - Other specified abnormalities of plasma proteins Status: Acute Assessment and Plan: Encourage oral intake. (2) Chest pain: Qualifiers: Chest pain type: unspecified Qualified Code(s): R07.9 - Chest pain, un specified Code(s): R07.9 - Chest pain, unspecified Status: Acute (3) Dementia: Code(s): F03.90 - Unspecified dementia without behavioral disturbance Status: Acute Assessment and Plan: Fall precautions. Additional Plan Patient will be maqnaged medically; there were no telemetry events. We will follow cardiology recommendation. Patient does not appear to be a candidate for any interventional strategy. Keep comfortable and manage with medications Time Spent With Patient Time with patient: less than 15 minutes Subjective Date/time seen: 06/05/21 09:21 Interval history: Narrative: this is an 86-year-old gentleman with episodes of intermittent chest pain. On admission, concern regarding acute coronary syndrome because of very small troponin rise to 0.05. Following admission this patient with apparently some history of dementia became very combative and had to be sedated and was unable to provide any history. S: This morning the patient is alert and responsive but is not conversant. Review of Systems Review of Systems: All systems reviewed & are unremarkable except as noted in HPI and below (the history and physical examination.) Exam Const: General: cooperative and no acute distress Orientation/consciousness: oriented to person, oriented to place, oriented to time and patient oriented x3 HENMT: Head: normal to inspection Ears: hearing grossly normal bilaterally and external ears normal General nose exam: Normal external nose present Face and sinus: normal facial exam Mouth: Yes Normal oral and palatal mucosa present Eyes: General: appearance normal, both eyes and all related structures Neck: Neck: normal visual inspection and full ROM Chest: Chest palpation & inspection: normal inspection of the chest and normal palpation of entire chest wall Resp: Effort & Inspection: normal respiratory effort Auscultation: clear to auscultation bilaterally Cardio: Jugular venous distension: no JVD Palpation: normal PMI Rate: regular rate Heart sounds: S1 normal heart sound present and S2 normal heart sound present GI: Inspection: normal to inspection Neuro: General: oriented to person, oriented to place, oriented to time and patient oriented x3 Cranial nerves: Yes CN's II-XII intact bilaterally Speech: normal speech Gait exam (Neuro): Normal gait present Motor exam (neuro): 5/5 motor strength present throughout Sensory Exam: normal sensation Psych: Appearance: grossly normal Objective Data Meds/Results Radiology Results: ITS Impressions Chest X-Ray 06/04/21 08:08 IMPRESSION: 1. No acute cardiopulmonary abnormality. Quality VTE Prophylaxis VTE prophylaxis: pharmacologic ordered
== END 2021-06-06 13:30 | disposition home health service (06) | DRG 313 ==
LOC: ANHED 06:04 → ANHIMU 08:25
PROVIDERS: Internal Medicine; Admitting Provider Internal Medicine; Emergency Provider Emergency Medicine; PCP Family Medicine; Visit Provider Internal Medicine
DX: R07.9 Chest pain, unspecified (principal); I25.10 Atherosclerotic heart disease of native coronary artery without angina pectoris; R77.8 Other specified abnormalities of plasma proteins; J44.9 Chronic obstructive pulmonary disease, unspecified; F03.90 Unspecified dementia, unspecified severity, without behavioral disturbance, psychotic disturbance, mood disturbance, and anxiety; F17.290 Nicotine dependence, other tobacco product, uncomplicated; M19.90 Unspecified osteoarthritis, unspecified site; Z79.899 Other long term (current) drug therapy
CPT/HCPCS: 36415; 71046; 80048; 80053; 80074; 80076; 81001; 83690; 83880; 84484; 85025; 85610; 85730; 93005; 96374; 96376; 97165; 97535; 99285; A9270; J1630; J1650; J2060; J2270

== ENCOUNTER 2021-06-21 04:20 | Emergency (ER) | payer MEDICARE, SELFPAY ==
--- NOTE | ~2021-06-21 | XR_ITS ---
XR chest 1V portable DATE: 06/21/2021 05:09 INDICATION: Fever TECHNIQUE: Portable upright AP chest views on 06/21/2021 at 0504 0505 hours COMPARISON: 06/04/2021 2 view chest FINDINGS: Heart size appears within normal range. Is aortic tortuosity. No hilar or mediastinal enlar gement is evident. No pulmonary infiltrate or consolidation, pleural effusion or pulmonary vascular congestion or pneumo thorax. Diffuse osteopenia. IMPRESSION: No active cardiopulmonary disease Reviewed, dictated and finalized at location A.
[2021-06-21 04:17] VITALS: BP 134/90; PULSE 81; RESP 12; TEMP 37.4; O2SAT 98
[2021-06-21 06:08] VITALS: BP 136/97; PULSE 74; RESP 18; O2SAT 95
[2021-06-21] MEDS: SODIUM CHLORIDE 0.9% IV 1,000 ML 999 ML IV CONT (06:08)
[2021-06-21 06:16] LABS: Basophils Percent Auto 0.2 % (0.2-1.2); Eosinophils Absolute Auto 0.2 K/mm3 (0-0.3); Hemoglobin 14.8 g/dL (14.0-18.0); Immature Granulocyte Absolute 0.06 K/mm3 (0.00-0.031); Immature Granulocyte Percent A 0.4 % (0-0.5); Lymphocytes Absolute Auto 2.16 K/mm3 (0.9-3.2); Lymphocytes Percent Auto 13.1 % (18.3-44.2); Mean Corpuscular HGB Conc 34.4 g/dl (32-36); Mean Corpuscular Hemoglobin 31.8 pg (26-34); Mean Corpuscular Volume 92.3 fl (80-100); Mean Platelet Volume 12.7 fl (7.4-10.4); Monocytes Absolute Auto 1.3 K/mm3 (0.1-0.6); Monocytes Percent Auto 7.8 % (2.6-8.5); Neutrophils Absolute Auto 12.7 K/mm3 (1.3-6.7); Neutrophils Percent Auto 77.5 % (45.5-73.1); Platelet Count Result 232 k/mm3 (150-375); Red Blood Count 4.66 M/mm3 (4.6-6.20); Red Cell Distribution Width 15.4 % (11.5-14.5); White Blood Count 16.4 K/mm3 (4.5-10.0)
[2021-06-21 06:21] LABS: Add Urine Microscopic? YES; Appearance Urine Clear (Clear); Bacteria Urine Trace /hpf; Bilirubin Urine Negative (Negative); Blood Urine Negative (Negative); Color Urine Yellow (Yellow); Glucose Urine UA Negative (Negative); Ketones Urine Negative (Negative); Leukocyte Esterase Ur Negative LEU/UL (Negative); Mucus Urine Rare /lpf; Nitrate Urine Negative (Negative); Protein Urine Negative (Negative); Specific Grav Ur 1.019 (1.001-1.035); Squamous Epithelial Cell Urine Rare /hpf (Few); WBC Urine 0-3 /hpf
[2021-06-21 06:25] LABS: Prothrombin Time 13.3 Seconds (11.1-14.7)
[2021-06-21 06:26] LABS: Partial Thromboplastin Time 26.4 SECONDS (22.3-36.8)
[2021-06-21 06:28] LABS: Lactic Acid Reflex 1.1 mmol/L (0.7-2.1)
[2021-06-21 06:32] LABS: Alanine Aminotransferase 55 U/L (4-50); Albumin Level 4.6 g/dL (3.5-5.1); Alkaline Phosphatase 92 U/L (38-126); Anion Gap 8 mmol/L (8-16); Aspartate Amino Transferase 44 U/L (17-59); Bilirubin,Total 1.7 mg/dL (0.2-1.3); Blood Urea Nitrogen 16 mg/dL (9-20); CRP 1.3 mg/dL (<1.0); Calcium 9.1 mg/dL (8.4-10.2); Carbon Dioxide 29 mmol/L (22-30); Chloride 101 mmol/L (98-107); Estimated CRCL calculation 41 ml/min; Estimated Glomerular Filt Rate > 60; Glucose 109 mg/dL (65-110); Potassium 4.3 mmol/L (3.4-5.0); Sodium 138 mmol/L (137-145)
[2021-06-21 06:59] VITALS: BP 122/75; PULSE 77; RESP 20; O2SAT 97
--- NOTE | 2021-06-21 07:28 | WPDEDEXPGENP ---
HPI - General Ped General Chief complaint: Fever Stated complaint: flu like symptoms x 6 hours Time Seen by Provider: 06/21/21 04:34 Source: patient and family History of Present Illness HPI narrative: Patient presents with decreased appetite and weakness. Family noted decreased appetite since dinner last night and has had increased weakness. Patient also reports he is feeling cold family was concerned so brought him into the ER for evaluation. He denies any cough or shortness of breath denies any focal areas of pain such as chest pain or abdominal pain denies any recent nausea vomiting or diarrhea. Denies any urinary symptoms. Related Data Home Medications Medication Instructions Recorded Confirmed tramadol 50 mg PO Q8-10H PRN 02/02/21 06/04/21 Allergies Allergy/AdvReac Type Severity Reaction Status Date / Time No Known Allergies Allergy Verified 06/21/21 04:26 Pediatric Review of Systems Review of Systems: CONSTITUTIONAL: Denies fever, chills, or sweats. EYES: Denies visual changes, redness, or discharge. ENT: Denies rhinorrhea, congestion, sore throat, or otalgia. CARDIOVASCULAR: Denies chest pain, palpitations, or edema. RESPIRATORY: Denies cough or dyspnea. GASTROINTESTINAL: Denies abdominal pain, nausea, vomiting, or diarrhea. GENITOURINARY: Denies dysuria or hematuria. SKIN: Denies rash or itching. MUSCULOSKELETAL: Denies back pain, joint pain, or myalgia. NEUROLOGIC: Denies headache, numbness, dizziness, or focal weakness. PSYCHIATRIC: Denies anxiety or depression. All systems ED: reviewed and negative except as stated PMFSH Past Medical History Medical History COPD (chronic obstructive pulmonary disease) Dementia Surgical History Surgical History History of hernia repair Social History Social History Smoking status: Current every day smoker Tobacco type: cigarettes Additional smoking assessment comments: 2 CIGARS/DAY ~60 YEARS Alcohol intake: current Alcohol use details: HEAVY DRINKER IN 20'S-40'S Substance use: never Additional living arrangements comments: DAUGHTER Spiritual care concerns: No Pediatric Exam Narrative: Physical exam: GENERAL: Well-appearing, well-nourished, and in no acute distress. HEAD: Normocephalic, atraumatic. EYES: PERRLA and EOMI. ENT: Nares clear, no rhinorrhea or epistaxis. Mucous membranes moist. NECK: Supple. No masses. No JVD CHEST: Clear to auscultation. No respiratory distress. No wheezes rales or rhonchi HEART: Regular rate and rhythm. No murmur heard. Normal peripheral pulses. ABDOMEN: Soft, nontender, nondistended, normal active bowel sounds. EXTREMITIES: Normal range of motion. No edema. SKIN: Warm, dry, no rash. NEURO: No focal deficits. Alert and oriented x3. PSYCH: Normal mood and affect. Course Reevaluation(s) Reevaluation #1: Patient resting comfortably continues to be without vital sign abnormality. Work-up reviewed with family. With isolated leukocytosis stable vital signs remainder of work-up unremarkable. Patient is appropriate for continued outpatient monitoring. Family comfortable with outpatient plan. Date: 06/21/21 Time: 07:29 Vital Signs Vital signs: Vital Signs Temperature 37.4 C 06/21/21 04:17 Pulse Rate 81 06/21/21 04:17 Respiratory Rate 12 06/21/21 04:17 Blood Pressure 134/90 06/21/21 04:17 Pulse Oximetry 98 06/21/21 04:17 Temperature 37.4 C 06/21/21 04:17 Pulse Rate 77 06/21/21 06:59 Respiratory Rate 20 06/21/21 06:59 Blood Pressure 122/75 06/21/21 06:59 Pulse Oximetry 97 06/21/21 06:59 Medical Decision Making [facility] Narrative Medical decision making narrative: H&P as above, vss, pt looks clinically well, exam reassuring there is no focal abdominal pain lung exam is clear, labs with isolated leukocytos
== END 2021-06-21 07:58 | disposition home or self-care (01) ==
PROVIDERS: Emergency Provider Emergency Medicine; PCP Family Medicine
DX: R53.1 Weakness (principal); D72.829 Elevated white blood cell count, unspecified; J44.9 Chronic obstructive pulmonary disease, unspecified; F03.90 Unspecified dementia, unspecified severity, without behavioral disturbance, psychotic disturbance, mood disturbance, and anxiety; F17.210 Nicotine dependence, cigarettes, uncomplicated; F17.290 Nicotine dependence, other tobacco product, uncomplicated
CPT/HCPCS: 36415; 71045; 80053; 81001; 83605; 85025; 85610; 85730; 86140; 87040; 87077; 87186; 96360; 99283; J7030

== ENCOUNTER 2021-12-18 03:51 | Observation (INO) | payer MEDICARE, MEDICAID, SELFPAY ==
[2021-12-18] VITALS (16 sets, daily range): BP systolic 101–123; BP diastolic 68–83; PULSE 48–78; RESP 11–20; TEMP 36.2–36.8; O2SAT 94–100; BMI 22.5
--- NOTE | 2021-12-18 | ECHO_ITS ---
Patient Info Name: Dominic Grewal Heretarshaeen Age: 86 years : 1935 Gender: Male Ht: 67 in Wt: 143 lbs BSA: 1.75 m2 HR: 67 bpm BP: 110 / 70 mmHg Exam Date: 12/18/2021 3:03 PM Exam Location: [facility] Pulmonary Patient Status: Outpatient Admit Date: 12/18/2021 Staff Ordering Physician: Chano Osborne MD Language And Literature Division Chair: Alexi Blackburn, AMINA, RT Attending Provider: Mamta Lima DO Exam Type: CA echo dop color flow w con Study Info Indications R07.9 - Chest pain, unspecified Strain analysis performed. Complete two-dimensional, color flow and Doppler transthoracic echocardiogram is performed with contrast to opacify the left ventricle and to improve the deliniation of the left ventricle endocardial borders. Summary 1. Suboptimal image quality, echo contrast was used. Normal LV size and wall thickness, normal LV systolic function, ejection fraction about 55-60%; grade 1 diastolic dysfunction. [id number] RV enlargement with hypokinesis. Normal mitral valve structure, no significant mitral regurgitation. Normal aortic valve structure, no hemodynamically significant stenosis by Doppler. Trivial TR, RVSP 30 mmHg. Left Ventricle Left ventricular chamber dimension is normal. Left ventricular systolic function is normal, estimated at 55-60%. There is no increased left ventricular wall thickness. Left ventricular septal wall motion is normal. The left ventricular diastolic function is grade I diastolic dysfunction. Right Ventricle Right ventricular chamber dimension is moderately enlarged. Right ventricular systolic function is reduced. Left Atria Left atrial chamber dimension is normal. Right Atria Right atrial chamber dimension is normal. Aortic Valve The aortic valve is normal. There is no aortic valve stenosis. There is no aortic valve regurgitation. Pulmonic Valve The pulmonic valve is normal. There is no pulmonic regurgitation. Mitral Valve The mitral valve has normal leaflets. There is no mitral valve regurgitation. Tricuspid Valve The tricuspid valve leaflets are normal. There is trace tricuspid valve regurgitation. No pulmonary hypertension, estimated pulmonary arterial systolic pressure is 30 mmHg. Pericardium/Pleural The pericardium appears normal. There is no pericardial effusion. Inferior Vena Cava Normal inferior vena cava with >50% collapse upon inspiration consistent with normal right atrial pressure, 8 mmHg. Aorta The aortic root size at the sinus of Valsalva is mildly dilated. Left Ventricular Outflow Tract Name Value Normal LVOT 2D LVOT Diameter 1.96 cm LVOT Doppler LVOT Peak Gradient 1 mmHg LVOT Mean Gradient 1 mmHg LVOT VTI 11.76 cm LVOT VTI/AV VTI Ratio 0.91 LVOT Stroke Volume 35.56 ml LVOT CO 2.53 l/min LVOT CI 1.45 L/min/m2 Mitral Valve Name Value
--- NOTE | 2021-12-18 | EST_ITS ---
Patient Info Name: Dominic Lazaro Age: 86 years : 1935 Gender: Male Ht: 67 in Wt: 143 lbs BSA: 1.75 m2 HR: 59 bpm BP: 155 / 77 mmHg Heart Rhythm: Sinus Rhythm Exam Date: 12/18/2021 1:56 PM Exam Location: [facility] Stress Patient Status: Inpatient Admit Date: 12/18/2021 Staff Ordering Physician: Chano Osborne MD Attending Provider: Mamta Lima DO Exercise Technologist: Maisha Maharaj, CT Nurse: luana Exam Type: CA stress sally w NM Study Info Indications R07.9 - Chest pain, unspecified A regadenoson stress test was performed. Summary 1. ECG portion of pharmacological stress test is negative for ischemia by EKG criteria. Correlate with perfusion imaging. Protocol: Lexiscan Stress ECG Details Stage: REST Duration (min): 8 min : 23 sec HR (bpm): 58 SBP (mmHg): 115 DBP (mmHg): 77 Stage: REST Duration (min): 13 min : 15 sec HR (bpm): 57 SBP (mmHg): 115 DBP (mmHg): 77 Stage: STAGE 1 Duration (min): 0 min : 59 sec HR (bpm): 69 SBP (mmHg): 134 DBP (mmHg): 84 Stage: RECOVERY Duration (min): 1 min : 0 sec HR (bpm): 84 SBP (mmHg): 134 DBP (mmHg): 84 Stage: RECOVERY Duration (min): 2 min : 0 sec HR (bpm): 84 SBP (mmHg): 134 DBP (mmHg): 84 Stage: RECOVERY Duration (min): 3 min : 0 sec HR (bpm): 83 SBP (mmHg): 137 DBP (mmHg): 81 Stage: RECOVERY Duration (min): 3 min : 1 sec HR (bpm): 82 SBP (mmHg): 137 DBP (mmHg): 81 Rest HR: 57 bpm Peak HR: 88 bpm Rest Sys BP: 115 mmHg Peak Sys BP: 137 mmHg Max Pred HR: 136 bpm % Max Pred HR: 65 % Target HR: 116 bpm Max RPP: 12,056 bpm*mmHg Total Time: 1 min : 0 sec Rest [place] BP: 77 mmHg Peak [place] BP: 81 mmHg Total Dose: 0.4 mg Resting ECG Sinus bradycardia, low QRS voltage in the precordial leads. Stress ECG Did not meet criteria for ischemia. Arrhythmias No significant arrhythmia. Report Signatures
--- NOTE | ~2021-12-18 | NM_ITS ---
EXAMINATION: NM sally stress w perfusion DATE: 12/18/2021 14:48 INDICATION: Chest pain. TECHNIQUE: Rest images were obtained following intravenous administration of 9.7 mCi Tc99m tetrofosmi n (Myoview). The patient was infused intravenously with Lexiscan (regadenoson). Then, 26.1 mCi Tc99m tetrofosmin (Myoview) was administered intravenously, and stress images were obtained. Data was recon structed into short axis and horizontal and vertical long axis SPECT images. Gated SPECT images were also obtained. COMPARISON: None. FINDINGS: There is a moderate-sized, mild, fixed perfusion defect involving apical to mid inferior an d mid inferoseptal segments of left ventricle, consistent with infarct. No reversible component to mix ggest ischemia. There is no segmental wall motion abnormality. Left ventricular ejection fraction m easures >70%. IMPRESSION: 1. Moderate-sized area of mild infarct involving apical to mid inferior and mid inferoseptal segments of left ventricle. 2. Normal left ventricular ejection fraction measuring >70%. Reviewed, dictated and finalized at location A.
--- NOTE | ~2021-12-18 | XR_ITS ---
EXAMINATION: XR chest 2V DATE: 12/18/2021 04:47 INDICATION: Chest pain. TECHNIQUE: Frontal and lateral views of the chest were obtained. COMPARISON: Chest single view 06/21/2021, CT abdomen and pelvis 05/19/2017 FINDINGS: There is mild atelectasis in the lower lung zones. No pleural effusion or pneumothorax. The heart size is normal. IMPRESSION: 1. Mild atelectasis in the lower lung zones. Reviewed, dictated and finalized at location A.
--- NOTE | 2021-12-18 03:54 | ECG_ITS ---
Measurements Intervals [place] Rate: 74 P: 267 IN: 257 QRS: -73 QRSD: 78 T: 30 QT: 371 QTc: 413 Interpretive Statements ?ELECTRONIC ATRIAL PACEMAKER LOW QRS VOLTAGE INFERIOR MYOCARDIAL INFARCTION , PROBABLY OLD WITH POSTERIOR EXTENSION Electronically Signed On 12-18-2021 14:29:31 CDT by Santhosh Salcedo M.D.
[2021-12-18 04:09] LABS: Basophils Percent Auto 0.3 % (0.2-1.2); Eosinophils Absolute Auto 0.2 K/mm3 (0-0.3); Hematocrit 41.3 % (42.0-52.0); Hemoglobin 13.7 g/dL (14.0-18.0); Immature Granulocyte Absolute 0.03 K/mm3 (0.00-0.031); Immature Granulocyte Percent A 0.3 % (0-0.5); Lymphocytes Absolute Auto 1.82 K/mm3 (0.9-3.2); Mean Corpuscular HGB Conc 33.2 g/dl (32-36); Mean Corpuscular Hemoglobin 31.3 pg (26-34); Mean Corpuscular Volume 94.3 fl (80-100); Mean Platelet Volume 12.4 fl (7.4-10.4); Monocytes Absolute Auto 0.6 K/mm3 (0.1-0.6); Monocytes Percent Auto 6.7 % (2.6-8.5); Neutrophils Percent Auto 69.7 % (45.5-73.1); Platelet Count Result 171 k/mm3 (150-375); Red Blood Count 4.38 M/mm3 (4.6-6.20); White Blood Count 8.7 K/mm3 (4.5-10.0)
[2021-12-18 04:21] LABS: Anion Gap 5 mmol/L (8-16); Blood Urea Nitrogen 21 mg/dL (9-20); Calcium 8.3 mg/dL (8.4-10.2); Carbon Dioxide 26 mmol/L (22-30); Chloride 109 mmol/L (98-107); Estimated CRCL calculation 41 ml/min; Estimated Glomerular Filt Rate > 60; Glucose 105 mg/dL (65-110); Sodium 140 mmol/L (137-145)
[2021-12-18 04:22] LABS: INR 1.1; Prothrombin Time 14.2 Seconds (11.1-14.7)
[2021-12-18 04:23] LABS: Partial Thromboplastin Time 27.3 SECONDS (22.3-36.8)
[2021-12-18 04:28] LABS: Hypochromasia 2+ (NORMAL); Large Platelets Present; Platelet Estimate Adequate (Adequate)
[2021-12-18 04:32] LABS: Troponin I < 0.012 ng/mL (0.000-0.034)
--- NOTE | 2021-12-18 04:34 | ED.CHESTPAIN ---
HPI - Chest Pain General Chief Complaint: Chest Pain Stated Complaint: chest pain x 1.5 hours Time Seen by Provider: 12/18/21 03:53 History of Present Illness HPI narrative: Patient is an 86-year-old male who presents to the ER with chest pain. Began an hour and a half prior to arrival. According patient's daughter lasted for 1 hour. It was central and sharp. It was without radiation. No known aggravating or alleviating factors. Patient takes metoprolol, atorvastatin, and aspirin due to having an elevated troponin in the past. Patient has not had a cardiac catheterization. Decision was made to manage medically given advanced age and dementia. Patient unable to provide history and is oriented x2. Believes he is at the hospital because he has wires on him (EKG leads). Related Data Home Medications Medication Instructions Recorded Confirmed aspirin 12/18/21 atorvastatin 12/18/21 metoprolol succinate PO 12/18/21 Allergies Allergy/AdvReac Type Severity Reaction Status Date / Time morphine AdvReac Agitated Verified 12/18/21 05:18 Review of Systems Review of Systems: ROS unobtainable: Yes unobtainable due to mental status PMFSH Past Medical History Medical History COPD (chronic obstructive pulmonary disease) Dementia Surgical History Surgical History History of hernia repair Social History Social History Smoking status: Current every day smoker Tobacco type: cigarettes Additional smoking assessment comments: 2 CIGARS/DAY ~60 YEARS Alcohol intake: current Alcohol use details: HEAVY DRINKER IN 20'S-40'S Substance use: never Additional living arrangements comments: DAUGHTER Spiritual care concerns: No Exam Narrative: GENERAL: Unkempt-appearing, thin, and in no acute distress. HEAD: Normocephalic, atraumatic. ENT: Mucous membranes moist. CHEST: Clear to auscultation. No respiratory distress. HEART: Regular rate and rhythm. Normal peripheral pulses. ABDOMEN: Soft, nontender, nondistended. EXTREMITIES: Normal range of motion. No edema. SKIN: Warm, dry, no rash. NEURO: Alert and oriented x2. PSYCH: Normal mood and affect. Course Course Emergency Course: Patient resting comfortably. No chest pain at this time. Patient with significant risk factors. Will observe and trend troponins. Vital Signs Vital signs: Vital Signs Temperature 97.9 F 12/18/21 03:49 Pulse Rate 74 12/18/21 03:49 Respiratory Rate 16 12/18/21 03:49 Blood Pressure 108/83 12/18/21 03:49 Pulse Oximetry 95 12/18/21 03:49 Temperature 97.9 F 12/18/21 03:49 Pulse Rate 74 12/18/21 03:49 Respiratory Rate 16 12/18/21 03:49 Blood Pressure 108/83 12/18/21 03:49 Pulse Oximetry 95 12/18/21 03:49 MDM - Chest Pain Lab Data Result diagrams: 12/18/21 04:02 12/18/21 04:02 Labs: Lab Results 12/18/21 12/18/21 12/18/21 Range/Units 04:02 04:02 04:02 WBC 8.7 (4.5-10.0) K/mm3 RBC 4.38 L (4.6-6.20) M/mm3 Hgb 13.7 L (14.0-18.0) g/dL Hct 41.3 L (42.0-52.0) % MCV 94.3 (80-100) fl MCH 31.3 (26-34) pg MCHC 33.2 (32-36) g/dl RDW 15.0 H (11.5-14.5) % Plt Count 171 (150-375) k/mm3 MPV 12.4 H (7.4-10.4) fl Immature Gran % (Auto) 0.3 (0-0.5) % Neut % (Auto) 69.7 (45.5-73.1) % Lymph % (Auto) 21.0 (18.3-44.2) % [place] % (Auto) 6.7 (2.6-8.5) % Eos % (Auto) 2.0 (0-4.4) % Baso % (Auto) 0.3 (0.2-1.2) % Lymph # (Auto) 1.82 (0.9-3.2) K/mm3 [place] # (Auto) 0.6 (0.1-0.6) K/mm3 Eos # (Auto) 0.2 (0-0.3) K/mm3 Baso # (Auto) 0.0 (0.0-0.1) K/mm3 Abs Immat Gran (auto) 0.03 (0.00-0.031) K/mm3 Absolute Neuts (auto) 6.0 (1.3-6.7) K/mm3 Absolute Nucleated RBC 0.0 (0.0-0.012) K/mm3 Nucleated RBC % 0.0 (0.0
--- NOTE | 2021-12-18 06:08 | PC.NURSE ---
This patient, Dominic Lazaro, was admitted to IMU Room 207-01. Patient/family oriented to hospital policies and general routines including ID bracelet, bed and alarms, visiting hours, pain management, procedures, bathroom and other care routines, personal items, smoking policy, room service/diet, and visiting hours. Information on how to activate the Rapid Response Team has been discussed. Patient/Family are encouraged to report perceived risks to care and to ask questions if they do not understand what they are told or what they should do.
[2021-12-18 07:53] LABS: Troponin I < 0.012 ng/mL (0.000-0.034)
[2021-12-18] MEDS: ASPIRIN 81 MG CHEWABLE TABLET PO (09:05)
[2021-12-18] MEDS: METOPROLOL SUCCINATE EXT REL 25 MG TABCR PO (09:05)
[2021-12-18] MEDS: ATORVASTATIN 20 MG TABLET PO (09:05)
[2021-12-18] MEDS: PERFLUTREN LIPID MICROSPHERES 1.5 ML VIAL DILUTED TO 10 ML TOTAL VOLUME IV PUSH (15:09)
--- NOTE | 2021-12-18 15:09 | IVDEFINITY ---
Prior to administration of IV Definity the patient was educated on the risks and benefits of the imaging enhancing agent including potential adverse side effects. The patient verbalized understanding. Allergies were verified. No exclusion criteria were identified and at least one of the following inclusion criteria were met: 1) physician request, 2) patient technically difficult to image (per the [place] [employer] guidelines of two or more segments not discernable within the apical view), or 3) questionable left ventricular function. ?
--- NOTE | 2021-12-18 17:10 | PM.SD2 ---
Same Day Admit/Disch: HPI History of Present Illness Chief complaint: Chest Pain Narrative: Dominic Lazaro is a 86 year old male ED-HPI narrative: Patient is an 86-year-old male who presents to the ER with chest pain. Began an hour and a half prior to arrival. According patient's daughter lasted for 1 hour. It was central and sharp. It was without radiation. No known aggravating or alleviating factors. Patient takes metoprolol, atorvastatin, and aspirin due to having an elevated troponin in the past. Patient has not had a cardiac catheterization. Decision was made to manage medically given advanced age and dementia. Patient unable to provide history and is oriented x2. Believes he is at the hospital because he has wires on him (EKG leads). interval history: patient presented with chest pain, 3 sets of cardiac enzymes are negative there are no acute changes on EKG, check echo is essentially normal patient remains clinically stable and poor historian, agitated and wants to go home, all the patient's daughter and discuss the results and will discharge the patient home. [facility] Past Medical History Medical History COPD (chronic obstructive pulmonary disease) Dementia Surgical History Surgical History History of hernia repair Family History Family History Other Unknown family medical history Social History Social History Smoking status: Current every day smoker Tobacco type: cigars Second hand tobacco smoke exposure: No Additional smoking assessment comments: 2 cigars per da;y Alcohol intake: never Alcohol use details: HEAVY DRINKER IN 20'S-40'S Substance use: never Additional living arrangements comments: DAUGHTER Spiritual care concerns: No Same Day Admit/Disch: Med Pre-admit Medications Home Medications Medication Instructions Recorded Confirmed Type aspirin 81 mg PO DAILY 12/18/21 12/18/21 History atorvastatin 20 mg PO DAILY 12/18/21 12/18/21 History metoprolol succinate 25 mg PO DAILY 12/18/21 12/18/21 History Exam Narrative: elderly frail Patient is comfortable, NAD HEENT: eyes are clear and none icteric LUNGS: normal respiratory effort ABD: BS+, Soft and nontender Lower extremities: no edema SKIN: nonjaundiced Neuro: grossly intact. DS: Data Data Completed and Pending Labs on day of discharge: Labs from last 24 hours 12/18/21 12/18/21 12/18/21 07:09 04:02 04:02 WBC RBC Hgb Hct MCV MCH MCHC RDW Plt Count MPV Immature Gran % (Auto) Neut % (Auto) Lymph % (Auto) [place] % (Auto) Eos % (Auto) Baso % (Auto) Lymph # (Auto) [place] # (Auto) Eos # (Auto) Baso # (Auto) Abs Immat Gran (auto) Absolute Neuts (auto) Absolute Nucleated RBC Nucleated RBC % Platelet Estimate Large Platelets Hypochromasia PT 14.2 INR 1.1 APTT 27.3 Sodium 140 Potassium 4.0 Chloride 109 H Carbon Dioxide 26 Anion Gap 5 L BUN 21 H Creatinine 1.10 Estim Creat Clear Calc 41 Estimated GFR > 60 Glucose 105 Calcium 8.3 L Troponin I < 0.012 < 0.012 12/18/21 04:02 WBC 8.7 RBC 4.38 L Hgb 13.7 L Hct 41.3 L MCV 94.3 MCH 31.3 MCHC 33.2 RDW 15.0 H Plt Count 171 MPV 12.4 H Immature Gran % (Auto) 0.3 Neut % (Auto) 69.7 Lymph % (Auto) 21.0 [place] % (Auto) 6.7 Eos % (Auto) 2.0 Baso % (Auto) 0.3 Lymph # (Auto) 1.82 [place] # (Auto) 0.6 Eos # (Auto) 0.2 Baso # (Auto) 0.0 Abs Immat Gran (auto) 0.03 Absolute Neuts (auto) 6.0 Absolute Nucleated RBC 0.0 Nucleated RBC % 0.0 Platelet Estimate Adequate Large Platelets Present Hypochromasia 2+ PT INR APTT Sodium Potassium Chloride Carbon Dioxide Anion Gap
== END 2021-12-18 18:22 | disposition home or self-care (01) ==
LOC: ANHED 05:27 → ANHIMU 06:43
PROVIDERS: Admitting Provider Internal Medicine; Emergency Provider Emergency Medicine; PCP Family Medicine; Visit Provider Family Medicine
DX: R07.9 Chest pain, unspecified (principal); J44.9 Chronic obstructive pulmonary disease, unspecified; F03.90 Unspecified dementia, unspecified severity, without behavioral disturbance, psychotic disturbance, mood disturbance, and anxiety; F17.210 Nicotine dependence, cigarettes, uncomplicated; Z79.82 Long term (current) use of aspirin
CPT/HCPCS: 36415; 71046; 78452; 80048; 84484; 85025; 85610; 85730; 93005; 93017; 96374; 99285; A9270; A9502; C8929; G0378; J2785; Q9957

== ENCOUNTER 2022-03-11 03:49 | Inpatient (IN) | payer MEDICARE, MEDICAID, SELFPAY ==
[2022-03-11] VITALS (30 sets, daily range): BP systolic 92–117; BP diastolic 41–68; PULSE 66–118; RESP 16–20; TEMP 36.5–37.9; O2SAT 91–100; BMI 25.6
--- NOTE | ~2022-03-11 | XR_ITS ---
MODIFIED ESOPHAGRAM HISTORY: Dysphagia and cough TECHNIQUE: Modified barium esophagram was performed by speech pathologist under radiologist fluorosco pic guidance. This was recorded on tape. The exam was reviewed on 03/15/2022 15:02 CDT. The DAP for this procedure was 0.9 Gycm2. Fluoroscopy time is 1.8 minutes. FINDINGS: Lateral projection of the cervical spine demonstrates normal alignment. There is reduced laryngeal elevation, laryngeal adduction, tongue base retraction and pharyngeal squeeze. There is res idue in the vallecula, piriform sinus, pharyngeal wall. There is laryngeal penetration with aspiratio n.. IMPRESSION: 1: Abnormal pharyngeal swallowing function with laryngeal penetration with aspiration. 2: Please refer to speech pathologist report for additional detail. Reviewed, dictated and finalized at location A. IMPRESSION: 1: Abnormal pharyngeal swallowing function with laryngeal penetration with aspi ration. 2: Please refer to speech pathologist report for additional detail.
--- NOTE | ~2022-03-11 | XR_ITS ---
EXAMINATION: XR chest 1V portable INDICATION: Shortness of breath TECHNIQUE: Portable AP chest at 0546 hours COMPARISON: 12/18/2021 FINDINGS: There are minimal airspace opacities of the right lung base. No pleural effusion or pneumot horax. The cardiomediastinal silhouette is normal. IMPRESSION: 1. Minimal right basilar airspace opacity, consistent with atelectasis versus pneumonia. Reviewed, dictated and finalized at location A. IMPRESSION: 1. Minimal right basilar airspace opacity, consistent with atelectasis versus p neumonia.
--- NOTE | ~2022-03-11 | CT_ITS ---
EXAMINATION: CTA chest PE protocol DATE: 03/11/2022 06:08 INDICATION: Shortness of breath TECHNIQUE: Computed tomography angiography (CTA) of the chest was performed with 100 mL Omnipaque-350 intravenous contrast timed to evaluate the pulmonary arteries. Coronal maximum intensity projection 3D-reconstructions were created by the technologist. The dose-length product (DLP) was 198.39 mGy-cm. Automated exposure control and iterative reconstruction technique were employed. COMPARISON: None. FINDINGS: The pulmonary arteries are well-opacified. No pulmonary embolism is identified. Respiratory motion artifact somewhat limits evaluation for pulmonary embolus in the lung bases. There are airspa ce opacities of the right lower lobe. No pleural effusion or pneumothorax. There is mild right hilar lymphadenopathy, likely reactive. The heart size is normal. There is moderate thoracic spondylosis. IMPRESSION: 1. No pulmonary embolus identified, sensitivity in the lung bases limited by respiratory motion artif act. 2. Right lower lobe opacities, consistent with pneumonia. Reviewed, dictated and finalized at location A. IMPRESSION: 1. No pulmonary embolus identified, sensitivity in the lung bases limited by re spiratory motion artifact. 2. Right lower lobe opacities, consistent with pneumonia.
--- NOTE | ~2022-03-11 | US_ITS ---
EXAMINATION: US renal BI DATE: 03/15/2022 15:09 INDICATION: Acute kidney injury TECHNIQUE: Multiple grayscale and Doppler ultrasound images of the kidneys were obtained. COMPARISON: None. FINDINGS: The right kidney measures 9.9 x 3.7 x 4.3 cm. The left kidney measures 9.8 x 5.6 x 5.6 cm a nd contains a 4.7 cm cyst. The kidneys demonstrate normal parenchymal echogenicity. There is mild rig ht hydronephrosis. The bladder is normal. IMPRESSION: 1. Mild right hydronephrosis, otherwise normal kidneys. Reviewed, dictated and finalized at location F.
--- NOTE | 2022-03-11 04:01 | ECG_ITS ---
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
--- NOTE | 2022-03-11 04:07 | ED.GENADULT ---
HPI - General Adult General Chief complaint: Weakness Stated complaint: generalized sickness Time Seen by Provider: 03/11/22 03:57 History of Present Illness HPI narrative: Patient 86-year-old gentleman who presents to the emergency department with chief complaint of febrile illness. Patient reports that this evening he woke up started having chills and body aches and felt warm to the touch. Per the family he is having a bit of a cough father reports no abdominal pain no vomiting patient has dementia therefore history is somewhat limited. The patient has not had any vomiting or diarrhea patient denies dysuria Related Data Home Medications Medication Instructions Recorded Confirmed aspirin 81 mg chewable tablet 81 mg PO DAILY 12/18/21 12/18/21 atorvastatin 20 mg tablet 20 mg PO DAILY 12/18/21 12/18/21 metoprolol succinate 25 mg 25 mg PO DAILY 12/18/21 12/18/21 tablet,extended release 24 hr Allergies Allergy/AdvReac Type Severity Reaction Status Date / Time morphine AdvReac Agitated Verified 12/18/21 05:18 Review of Systems Review of Systems: A 10 system review of systems was completed on the patient and is negative except for what is stated in the HPI. Nursing and ancillary documentation was reviewed. [facility] Past Medical History Medical History COPD (chronic obstructive pulmonary disease) Dementia Surgical History Surgical History History of hernia repair Family History Family History Other Unknown family medical history Social History Social History Smoking status: Current every day smoker Tobacco type: cigars Second hand tobacco smoke exposure: No Additional smoking assessment comments: 2 cigars per da;y Alcohol intake: never Alcohol use details: HEAVY DRINKER IN 20'S-40'S Substance use: never Additional living arrangements comments: DAUGHTER Spiritual care concerns: No Exam Narrative: GENERAL: Well-appearing, well-nourished, and in no acute distress. HEAD: Normocephalic, atraumatic. EYES: PERRLA and EOMI. ENT: Nares clear, no rhinorrhea or epistaxis. Mucous membranes moist. NECK: Supple. CHEST: Clear to auscultation. No respiratory distress. HEART: Regular rate and rhythm. No murmur heard. Normal peripheral pulses. ABDOMEN: Soft, nontender, nondistended, normal active bowel sounds. EXTREMITIES: Normal range of motion. No edema. SKIN: Warm, dry, no rash. NEURO: No focal deficits. Alert and oriented to baseline. PSYCH: Normal mood and affect. Course Vital Signs Vital signs: Vital Signs Temperature 37.9 C H 03/11/22 03:55 Pulse Rate 92 03/11/22 03:55 Respiratory Rate 20 03/11/22 03:55 Pulse Oximetry 99 03/11/22 03:55 Oxygen Delivery Room Air 03/11/22 03:55 Temperature 37.2 C 03/11/22 06:36 Pulse Rate 92 03/11/22 03:55 Respiratory Rate 20 03/11/22 03:55 Pulse Oximetry 99 03/11/22 03:55 Oxygen Delivery Room Air 03/11/22 03:55 Medical Decision Making Vital Signs Vital Signs: Vital Signs Temperature 37.9 C H 03/11/22 03:55 Pulse Rate 92 03/11/22 03:55 Respiratory Rate 20 03/11/22 03:55 Pulse Oximetry 99 03/11/22 03:55 Oxygen Delivery Room Air 03/11/22 03:55 Temperature 37.2 C 03/11/22 06:36 Pulse Rate 92 03/11/22 03:55 Respiratory Rate 20 03/11/22 03:55 Pulse Oximetry 99 03/11/22 03:55 Oxygen Delivery Room Air 03/11/22 03:55 Lab Data Result diagrams: 03/11/22 04:25 03/11/22 04:25 Labs: Lab Results 03/11/22 03/11/22 03/11/22 Range/Units 04:25 04:25 04:25 WBC 12.9 H (4.5-10.0) K/mm3 RBC 4.51 L (4.6-6.20) M/mm3 Hgb 14.2 (14.0-18.0) g/dL Hct 40.4 L (42.0-52.0) % MCV 89.6 (8
[2022-03-11 04:37] LABS: Basophils Percent Auto 0.2 % (0.2-1.2); Eosinophils Absolute Auto 0.2 K/mm3 (0-0.3); Eosinophils Percent Auto 1.2 % (0-4.4); Hematocrit 40.4 % (42.0-52.0); Hemoglobin 14.2 g/dL (14.0-18.0); Immature Granulocyte Absolute 0.05 K/mm3 (0.00-0.031); Immature Granulocyte Percent A 0.4 % (0-0.5); Lymphocytes Percent Auto 8.5 % (18.3-44.2); Mean Corpuscular HGB Conc 35.1 g/dl (32-36); Mean Corpuscular Hemoglobin 31.5 pg (26-34); Mean Corpuscular Volume 89.6 fl (80-100); Mean Platelet Volume 12.9 fl (7.4-10.4); Monocytes Absolute Auto 0.6 K/mm3 (0.1-0.6); Monocytes Percent Auto 4.7 % (2.6-8.5); Platelet Count Result 196 k/mm3 (150-375); Red Blood Count 4.51 M/mm3 (4.6-6.20); Red Cell Distribution Width 15.5 % (11.5-14.5); White Blood Count 12.9 K/mm3 (4.5-10.0)
[2022-03-11 04:44] LABS: Lactic Acid Reflex 1.4 mmol/L (0.7-2.0)
[2022-03-11 04:45] LABS: Alanine Aminotransferase 15 U/L (6-50); Albumin Level 4.2 g/dL (3.5-5.1); Alkaline Phosphatase 61 U/L (38-126); Anion Gap 3 mmol/L (8-16); Aspartate Amino Transferase 24 U/L (17-59); Bilirubin,Total 1.3 mg/dL (0.2-1.3); Blood Urea Nitrogen 21 mg/dL (9-20); Calcium 8.9 mg/dL (8.4-10.2); Carbon Dioxide 28 mmol/L (22-30); Chloride 106 mmol/L (98-107); Estimated CRCL calculation 37 ml/min; Estimated Glomerular Filt Rate 58; Glucose 108 mg/dL (65-110); Potassium 4.3 mmol/L (3.4-5.0); Sodium 137 mmol/L (137-145)
[2022-03-11] MEDS: ACETAMINOPHEN 325 MG TABLET 650 MG PO (04:57)
[2022-03-11] MEDS: SODIUM CHLORIDE 0.9% IV 1,000 ML 999 ML IV CONT (04:57)
[2022-03-11 05:02] LABS: Troponin I 0.249 ng/mL (0.000-0.034)
[2022-03-11 05:08] LABS: Appearance Urine Clear (Clear); Bilirubin Urine Negative (Negative); Blood Urine Negative (Negative); Color Urine Yellow (Yellow); Glucose Urine UA Negative (Negative); Ketones Urine Trace mg/dL (Negative); Leukocyte Esterase Ur Negative LEU/UL (Negative); Nitrate Urine Negative (Negative); Protein Urine Negative (Negative); pH Urine 7.5 (5.0-9.0)
[2022-03-11 05:12] LABS: Influenza A QL RT-PCR Negative (Negative); Influenza B QL RT-PCR Negative (Negative); SARS-CoV-2 RNA PCR Negative
[2022-03-11 05:17] LABS: Mucus Urine Rare /lpf; RBC Urine 0-2 /hpf (0-2); Squamous Epithelial Cell Urine Rare /hpf (Few); WBC Urine 0-3 /hpf
[2022-03-11 05:18] LABS: Add Urine Microscopic? YES
[2022-03-11] MEDS: ASPIRIN 81 MG CHEWABLE TABLET 324 MG PO (05:34)
[2022-03-11] MEDS: ALBUTEROL SULFATE NEB 2.5 MG/3 ML INH 5 MG INHALATION ×3 (07:36→19:40)
[2022-03-11] MEDS: IPRATROPIUM BR 0.02% INH SOLN 0.5 MG/2.5 ML VIAL INHALATION ×3 (07:36→19:40)
[2022-03-11 09:28] LABS: Troponin I 0.339 ng/mL (0.000-0.034)
[2022-03-11 12:55] LABS: Troponin I 0.292 ng/mL (0.000-0.034)
[2022-03-11] MEDS: SODIUM CHLORIDE 0.9% IV 1,000 ML 125 ML IV CONT ×2 (13:51→23:09)
[2022-03-11] MEDS: metroNIDAZOLE 500 MG/ISO 100ML 500 MG/100 ML BAG 100 MG IVPB ×2 (13:51→17:18)
--- NOTE | 2022-03-11 14:29 | ADMGEN ---
This patient, Dominic Lazaro, was admitted to IMU Room 206-01 at 0855. Patient/family oriented to hospital policies and general routines including ID bracelet, bed and alarms, visiting hours, pain management, procedures, bathroom and other care routines, personal items, smoking policy, room service/diet, and visiting hours. Information on how to activate the Rapid Response Team has been discussed. Patient/Family are encouraged to report perceived risks to care and to ask questions if they do not understand what they are told or what they should do.
--- NOTE | 2022-03-11 15:52 | PM.IMHP ---
H&P: HPI History of Present Illness Date/Time: 03/11/22 15:52 Chief Complaint: fever Narrative: ED-HPI narrative: Patient 86-year-old gentleman who presents to the emergency department with chief complaint of febrile illness.? Patient reports that this evening he woke up started having chills and body aches and felt warm to the touch.? Per the family he is having a bit of a cough father reports no abdominal pain no vomiting patient has dementia therefore history is somewhat limited.? The patient has not had any vomiting or diarrhea patient denies dysuria. unfortunately patient is unable to provide detailed review of symptoms or history I spoke with the patient's daughter who is his caregiver and he lives with her, she stated patient had been his normal state of health and was able to do his chores until day before yesterday when he felt tired poor appetite and last night he woke her up shivering and felt warm to touch and patient was brought to the emergency department further evaluation, his white count slightly elevated chest x-ray suspicious pneumonia patient started on ceftriaxone and azithromycin however will add Flagyl to cover for any possible aspiration pneumonia, patient urine is clean, blood culture ordered from emergency depart I will follow-up, I also spoke with the patient's daughter and patient is DNR. patient admitted inpatient with pneumonia and fever, patient will stay in hospital for 2 midnights Review of Systems Review of Systems: unable to provide any review of symptom PMFSH Past Medical History Medical History COPD (chronic obstructive pulmonary disease) Dementia Surgical History Surgical History History of hernia repair Family History Family History Other Unknown family medical history Social History Social History Smoking status: Current every day smoker Tobacco type: cigars Second hand tobacco smoke exposure: No Additional smoking assessment comments: 2 cigars per da;y Alcohol intake: never Alcohol use details: HEAVY DRINKER IN 20'S-40'S Substance use: never Additional living arrangements comments: DAUGHTER Spiritual care concerns: No Meds Home Medications and Allergies Home Medications Medication Instructions Recorded Confirmed Type aspirin 81 mg chewable tablet 81 mg PO DAILY 12/18/21 03/11/22 History atorvastatin 20 mg tablet 20 mg PO DAILY 12/18/21 03/11/22 History metoprolol succinate 25 mg 25 mg PO DAILY 12/18/21 03/11/22 History tablet,extended release 24 hr Allergies Allergy/AdvReac Type Severity Reaction Status Date / Time morphine AdvReac Agitated Verified 12/18/21 05:18 Vital Signs Vital Signs - 24 hr 03/11/22 03:55 03/11/22 06:36 03/11/22 07:39 Temperature 100.2 F H 98.9 F Pulse Rate 92 70 Respiratory Rate 20 18 Blood Pressure Pulse Oximetry 99 97 Oxygen Delivery Room Air Room Air 03/11/22 07:40 03/11/22 08:10 03/11/22 07:00 Temperature 98.9 F Pulse Rate 68 72 70 Respiratory Rate 16 18 16 Blood Pressure 101/56 L Pulse Oximetry 98 Oxygen Delivery 03/11/22 07:01 03/11/22 07:15 03/11/22 07:16 Temperature Pulse Rate 72 71 78 Respiratory Rate 17 16 18 Blood Pressure 92/60 L Pulse Oximetry 96 91 99 Oxygen Delivery 03/11/22 07:17 03/11/22 07:30 03/11/22 07:31 Temperature Pulse Rate 72 76 71 Respiratory Rate 16 19 17 Blood Pressure 95/60 L 98/68 L Pulse Oximetry 96 100 99 Oxygen Delivery 03/11/22 08:02 03/11/22 08:15 03/11/22 08:16 Temperature Pulse Rate 74 80 79 Respiratory Rate 17 17 17 Blood Pressure 98/55 L Pulse Oximetry 100 100 100 Oxygen Delivery 03/11/22 08:30 03/11/22 08:42 03/11/22 08:45 Temperature
--- NOTE | 2022-03-11 16:06 | ADMGEN ---
This patient, Dominic Lazaro, was admitted to IMU Room 206-01. at 08:58am Patient/family oriented to hospital policies and general routines including ID bracelet, bed and alarms, visiting hours, pain management, procedures, bathroom and other care routines, personal items, smoking policy, room service/diet, and visiting hours. Information on how to activate the Rapid Response Team has been discussed. Patient/Family are encouraged to report perceived risks to care and to ask questions if they do not understand what they are told or what they should do.
[2022-03-12] VITALS (16 sets, daily range): BP systolic 97–138; BP diastolic 51–64; PULSE 59–86; RESP 14–20; TEMP 36.3–37.5; O2SAT 95–99; BMI 24.5
[2022-03-12] MEDS: ALBUTEROL SULFATE NEB 2.5 MG/3 ML INH 5 MG INHALATION ×4 (02:11→20:00)
[2022-03-12] MEDS: IPRATROPIUM BR 0.02% INH SOLN 0.5 MG/2.5 ML VIAL INHALATION ×4 (02:12→20:00)
[2022-03-12 04:44] LABS: Basophils Percent Auto 0.1 % (0.2-1.2); Hematocrit 31.2 % (42.0-52.0); Hemoglobin 10.6 g/dL (14.0-18.0); Immature Granulocyte Absolute 0.09 K/mm3 (0.00-0.031); Immature Granulocyte Percent A 0.6 % (0-0.5); Lymphocytes Percent Auto 7.7 % (18.3-44.2); Mean Corpuscular Volume 91.2 fl (80-100); Mean Platelet Volume 12.3 fl (7.4-10.4); Monocytes Absolute Auto 0.7 K/mm3 (0.1-0.6); Monocytes Percent Auto 5.1 % (2.6-8.5); Neutrophils Absolute Auto 12.4 K/mm3 (1.3-6.7); Neutrophils Percent Auto 86.5 % (45.5-73.1); Platelet Count Result 132 k/mm3 (150-375); Red Blood Count 3.42 M/mm3 (4.6-6.20); Red Cell Distribution Width 15.8 % (11.5-14.5); White Blood Count 14.3 K/mm3 (4.5-10.0)
[2022-03-12 04:56] LABS: Alanine Aminotransferase 16 U/L (6-50); Albumin Level 2.9 g/dL (3.5-5.1); Alkaline Phosphatase 40 U/L (38-126); Anion Gap 6 mmol/L (8-16); Aspartate Amino Transferase 24 U/L (17-59); Bilirubin,Total 1.3 mg/dL (0.2-1.3); Blood Urea Nitrogen 16 mg/dL (9-20); Calcium 7.7 mg/dL (8.4-10.2); Carbon Dioxide 23 mmol/L (22-30); Chloride 104 mmol/L (98-107); Estimated CRCL calculation 37 ml/min; Estimated Glomerular Filt Rate 58; Glucose 117 mg/dL (65-110); Potassium 3.6 mmol/L (3.4-5.0); Sodium 133 mmol/L (137-145)
[2022-03-12] MEDS: SODIUM CHLORIDE 0.9% IV 1,000 ML 125 ML IV CONT ×3 (06:08→23:57)
[2022-03-12] MEDS: ASPIRIN 81 MG CHEWABLE TABLET PO (09:56)
[2022-03-12] MEDS: metroNIDAZOLE 500 MG/ISO 100ML 500 MG/100 ML BAG 100 MG IVPB ×3 (09:58→17:05)
[2022-03-12] MEDS: BISACODYL 5 MG TABLET EC PO (12:26)
--- NOTE | 2022-03-12 14:54 | PM.IMPN ---
Progress Note: A&P Assessment and Plan (1) Pneumonia: Code(s): J18.9 - Pneumonia, unspecified organism Status: Acute Assessment and Plan: ED-HPI narrative: Patient 86-year-old gentleman who presents to the emergency department with chief complaint of febrile illness.? Patient reports that this evening he woke up started having chills and body aches and felt warm to the touch.? Per the family he is having a bit of a cough father reports no abdominal pain no vomiting patient has dementia therefore history is somewhat limited.? The patient has not had any vomiting or diarrhea patient denies dysuria. unfortunately patient is unable to provide detailed review of symptoms or history I spoke with the patient's daughter who is his caregiver and he lives with her, she stated patient had been his normal state of health and was able to do his chores until day before yesterday when he felt tired poor appetite and last night he woke her up shivering and felt warm to touch and patient was brought to the emergency department further evaluation, his white count slightly elevated chest x-ray suspicious pneumonia patient started on ceftriaxone and azithromycin however will add Flagyl to cover for any possible aspiration pneumonia, patient urine is clean, blood culture ordered from emergency depart I will follow-up, I also spoke with the patient's daughter and patient is DNR. 03/12/2022 interval history: Today patient is more awake but unable to provider any history, he has low grad fever, his white counts slightly elevated, so far blood culture no growth, his urine is clean, CTA of chest is negative for PE however concerning for pneumonia patient is treated with ceftriaoxane, azithromycin and flagyl, will CPM, have PT OT evaluate the patient, (2) Dementia: Code(s): F03.90 - Unspecified dementia without behavioral disturbance Status: Acute Assessment and Plan: patient remains clinically stable no agitation (3) COPD (chronic obstructive pulmonary disease): Code(s): J44.9 - Chronic obstructive pulmonary disease, unspecified Status: Acute Assessment and Plan: will resume home medication (4) Elevated troponin: Code(s): R77.8 - Other specified abnormalities of plasma proteins Status: Acute Assessment and Plan: patient tropes are elevated and flat patient has no complaint of chest pain, there are no changes on EKG most likely type 2 myocardial infarction, patient with dementia Subjective Date/time seen: 03/12/22 14:54 ED-HPI narrative: Patient 86-year-old gentleman who presents to the emergency department with chief complaint of febrile illness.? Patient reports that this evening he woke up started having chills and body aches and felt warm to the touch.? Per the family he is having a bit of a cough father reports no abdominal pain no vomiting patient has dementia therefore history is somewhat limited.? The patient has not had any vomiting or diarrhea patient denies dysuria. unfortunately patient is unable to provide detailed review of symptoms or history I spoke with the patient's daughter who is his caregiver and he lives with her, she stated patient had been his normal state of health and was able to do his chores until day before yesterday when he felt tired poor appetite and last night he woke her up shivering and felt warm to touch and patient was brought to the emergency department further evaluation, his white count slightly elevated chest x-ray suspicious pneumonia patient started on ceftriaxone and azithromycin however will add Flagyl to cover for any possible aspiration pneumonia, patient urine is clean, blood culture ordered from emergency depart I will follow-up, I also spoke with the patient's daughter and patient is DNR. 03/12/2022 interval history: Today patient is more awake but unable to provider any history, he has low grad fever, his white counts slightly elevated, so far blo
[2022-03-13] VITALS (12 sets, daily range): BP systolic 120–129; BP diastolic 78–79; PULSE 67–107; RESP 12–20; TEMP 36.6–36.7; O2SAT 93–97
[2022-03-13] MEDS: metroNIDAZOLE 500 MG/ISO 100ML 500 MG/100 ML BAG 100 MG IVPB ×2 (00:12→18:37)
[2022-03-13] MEDS: ALBUTEROL SULFATE NEB 2.5 MG/3 ML INH 5 MG INHALATION ×4 (02:02→20:42)
[2022-03-13] MEDS: IPRATROPIUM BR 0.02% INH SOLN 0.5 MG/2.5 ML VIAL INHALATION ×4 (02:02→20:42)
[2022-03-13 06:00] LABS: Basophils Percent Auto 0.2 % (0.2-1.2); Eosinophils Percent Auto 0.4 % (0-4.4); Hematocrit 30.8 % (42.0-52.0); Hemoglobin 10.8 g/dL (14.0-18.0); Immature Granulocyte Absolute 0.03 K/mm3 (0.00-0.031); Immature Granulocyte Percent A 0.3 % (0-0.5); Lymphocytes Absolute Auto 0.92 K/mm3 (0.9-3.2); Lymphocytes Percent Auto 9.7 % (18.3-44.2); Mean Corpuscular HGB Conc 35.1 g/dl (32-36); Mean Corpuscular Hemoglobin 31.5 pg (26-34); Mean Corpuscular Volume 89.8 fl (80-100); Mean Platelet Volume 12.9 fl (7.4-10.4); Monocytes Absolute Auto 0.7 K/mm3 (0.1-0.6); Monocytes Percent Auto 7.7 % (2.6-8.5); Neutrophils Absolute Auto 7.8 K/mm3 (1.3-6.7); Neutrophils Percent Auto 81.7 % (45.5-73.1); Platelet Count Result 136 k/mm3 (150-375); Red Blood Count 3.43 M/mm3 (4.6-6.20); Red Cell Distribution Width 15.6 % (11.5-14.5); White Blood Count 9.5 K/mm3 (4.5-10.0)
[2022-03-13 06:11] LABS: Alanine Aminotransferase 17 U/L (6-50); Albumin Level 2.8 g/dL (3.5-5.1); Alkaline Phosphatase 39 U/L (38-126); Anion Gap 5 mmol/L (8-16); Aspartate Amino Transferase 31 U/L (17-59); Blood Urea Nitrogen 13 mg/dL (9-20); Calcium 7.7 mg/dL (8.4-10.2); Carbon Dioxide 22 mmol/L (22-30); Chloride 109 mmol/L (98-107); Estimated CRCL calculation 44 ml/min; Estimated Glomerular Filt Rate > 60; Glucose 76 mg/dL (65-110); Potassium 3.4 mmol/L (3.4-5.0); Sodium 136 mmol/L (137-145)
[2022-03-13] MEDS: ATORVASTATIN 20 MG TABLET PO (08:06)
[2022-03-13] MEDS: SODIUM CHLORIDE 0.9% IV 1,000 ML 125 ML IV CONT ×2 (08:06→18:37)
[2022-03-13] MEDS: ASPIRIN 81 MG CHEWABLE TABLET PO (08:07)
[2022-03-13] MEDS: METOPROLOL SUCCINATE EXT REL 25 MG TABCR PO (08:07)
[2022-03-13] MEDS: OLANZapine 10 MG INJ VIAL 5 MG IM ×2 (09:52→13:09)
--- NOTE | 2022-03-13 11:20 | PCOTNOTE ---
Per RN patient has been violent and combative this morning, will hold at this time and attempt at later time when patient is more appropriate. Will follow.
--- NOTE | 2022-03-13 17:59 | PM.IMPN ---
Progress Note: A&P Assessment and Plan (1) Pneumonia: Code(s): J18.9 - Pneumonia, unspecified organism Status: Acute Assessment and Plan: ED-HPI narrative: Patient 86-year-old gentleman who presents to the emergency department with chief complaint of febrile illness.? Patient reports that this evening he woke up started having chills and body aches and felt warm to the touch.? Per the family he is having a bit of a cough father reports no abdominal pain no vomiting patient has dementia therefore history is somewhat limited.? The patient has not had any vomiting or diarrhea patient denies dysuria. unfortunately patient is unable to provide detailed review of symptoms or history I spoke with the patient's daughter who is his caregiver and he lives with her, she stated patient had been his normal state of health and was able to do his chores until day before yesterday when he felt tired poor appetite and last night he woke her up shivering and felt warm to touch and patient was brought to the emergency department further evaluation, his white count slightly elevated chest x-ray suspicious pneumonia patient started on ceftriaxone and azithromycin however will add Flagyl to cover for any possible aspiration pneumonia, patient urine is clean, blood culture ordered from emergency depart I will follow-up, I also spoke with the patient's daughter and patient is DNR. 03/12/2022 interval history: Today patient is more awake but unable to provider any history, he has low grad fever, his white counts slightly elevated, so far blood culture no growth, his urine is clean, CTA of chest is negative for PE however concerning for pneumonia patient is treated with ceftriaoxane, azithromycin and flagyl, will CPM, have PT OT evaluate the patient, 03/13/2022 interval history: Today patient is agitated, trying to leave and somewhat aggressive code purple was called, patient was given Zyprexa 5mg IM minutes remain calm for for 2 hours and again patient agitated and patient was given again Zyprexa 5mg IM, he has low grad fever, his white counts slightly elevated, so far blood culture no growth, his urine is clean, CTA of chest is negative for PE however concerning for pneumonia patient is treated with ceftriaoxane, azithromycin and flagyl, will CPM, have PT OT evaluate the patient, (2) Dementia: Code(s): F03.90 - Unspecified dementia without behavioral disturbance Status: Acute Assessment and Plan: patient remains clinically stable no agitation (3) COPD (chronic obstructive pulmonary disease): Code(s): J44.9 - Chronic obstructive pulmonary disease, unspecified Status: Acute Assessment and Plan: will resume home medication (4) Elevated troponin: Code(s): R77.8 - Other specified abnormalities of plasma proteins Status: Acute Assessment and Plan: patient tropes are elevated and flat patient has no complaint of chest pain, there are no changes on EKG most likely type 2 myocardial infarction, patient with dementia Subjective Date/time seen: 03/13/22 17:59 ED-HPI narrative: Patient 86-year-old gentleman who presents to the emergency department with chief complaint of febrile illness.? Patient reports that this evening he woke up started having chills and body aches and felt warm to the touch.? Per the family he is having a bit of a cough father reports no abdominal pain no vomiting patient has dementia therefore history is somewhat limited.? The patient has not had any vomiting or diarrhea patient denies dysuria. unfortunately patient is unable to provide detailed review of symptoms or history I spoke with the patient's daughter who is his caregiver and he lives with her, she stated patient had been his normal state of health and was able to do his chores until day before yesterday when he felt tired poor appetite and last night he woke her up shivering and felt warm to touch and patient was brought
[2022-03-13] MEDS: HALOPERIDOL LACTATE 5 MG/ML VIAL IM (22:55)
[2022-03-14] VITALS (10 sets, daily range): BP systolic 133–151; BP diastolic 80–91; PULSE 85–112; RESP 16–22; TEMP 36.1–37.3; O2SAT 91–97
[2022-03-14] MEDS: diphenhydrAMINE HCl INJ 50 MG/ML VIAL 25 MG IM (00:12)
[2022-03-14] MEDS: LORazepam INJ (*CRX) 2 MG/ML VIAL 1 MG IM (00:13)
[2022-03-14] MEDS: ALBUTEROL SULFATE NEB 2.5 MG/3 ML INH 5 MG INHALATION ×4 (02:50→19:57)
[2022-03-14] MEDS: IPRATROPIUM BR 0.02% INH SOLN 0.5 MG/2.5 ML VIAL INHALATION ×4 (02:50→19:57)
[2022-03-14 05:45] LABS: Basophils Percent Auto 0.4 % (0.2-1.2); Eosinophils Absolute Auto 0.1 K/mm3 (0-0.3); Eosinophils Percent Auto 1.3 % (0-4.4); Hemoglobin 13.1 g/dL (14.0-18.0); Immature Granulocyte Absolute 0.02 K/mm3 (0.00-0.031); Immature Granulocyte Percent A 0.2 % (0-0.5); Lymphocytes Absolute Auto 1.39 K/mm3 (0.9-3.2); Mean Corpuscular HGB Conc 35.4 g/dl (32-36); Mean Corpuscular Hemoglobin 31.8 pg (26-34); Mean Corpuscular Volume 89.8 fl (80-100); Mean Platelet Volume 11.8 fl (7.4-10.4); Monocytes Absolute Auto 0.8 K/mm3 (0.1-0.6); Monocytes Percent Auto 8.7 % (2.6-8.5); Neutrophils Absolute Auto 6.9 K/mm3 (1.3-6.7); Neutrophils Percent Auto 74.4 % (45.5-73.1); Platelet Count Result 189 k/mm3 (150-375); Red Blood Count 4.12 M/mm3 (4.6-6.20); Red Cell Distribution Width 15.2 % (11.5-14.5); White Blood Count 9.3 K/mm3 (4.5-10.0)
[2022-03-14 05:59] LABS: Alanine Aminotransferase 25 U/L (6-50); Albumin Level 3.7 g/dL (3.5-5.1); Alkaline Phosphatase 44 U/L (38-126); Anion Gap 5 mmol/L (8-16); Aspartate Amino Transferase 48 U/L (17-59); Bilirubin,Total 1.8 mg/dL (0.2-1.3); Blood Urea Nitrogen 13 mg/dL (9-20); Calcium 8.4 mg/dL (8.4-10.2); Carbon Dioxide 23 mmol/L (22-30); Chloride 109 mmol/L (98-107); Estimated CRCL calculation 44 ml/min; Estimated Glomerular Filt Rate > 60; Glucose 68 mg/dL (65-110); Potassium 4.4 mmol/L (3.4-5.0); Sodium 137 mmol/L (137-145)
--- NOTE | 2022-03-14 09:53 | PCOTNOTE ---
Unable to arouse patient to participate in OT this AM. Will continue per plan of care.
--- NOTE | 2022-03-14 11:11 | PCPTNOTE ---
Attempted to see patient for PT, per patient sitter in room: patient is unable to be aroused and participate in therapy. Will continue per plan of care.
--- NOTE | 2022-03-14 13:15 | PM.IMPN ---
Progress Note: A&P Assessment and Plan (1) Pneumonia: Code(s): J18.9 - Pneumonia, unspecified organism Status: Acute (2) Dementia: Code(s): F03.90 - Unspecified dementia without behavioral disturbance Status: Acute Assessment and Plan: patient remains clinically stable no agitation noted today continue IV antibiotics (3) COPD (chronic obstructive pulmonary disease): Code(s): J44.9 - Chronic obstructive pulmonary disease, unspecified Status: Acute Assessment and Plan: will resume home medication appears compensated (4) Elevated troponin: Code(s): R77.8 - Other specified abnormalities of plasma proteins Status: Acute Assessment and Plan: likely related type 2 MRI. No chest pain. non cardiac Subjective Date/time seen: 03/14/22 13:15 no new issues agitation Overnite now resolved. Unable to give dose of antibiotics Exam Narrative: elderly frail Patient is comfortable, NAD HEENT: eyes are clear and none icteric LUNGS: normal respiratory effort ABD: not distended Lower extremities: no edema SKIN: nonjaundiced Neuro: confused. Objective Data Vital Signs Vital Signs: Vital Signs - 24 hr 03/13/22 14:45 03/13/22 14:56 03/13/22 14:00 Temperature 98.1 F Pulse Rate 67 86 72 Respiratory Rate 14 12 18 Blood Pressure 129/79 Pulse Oximetry 97 Oxygen Delivery 03/13/22 20:38 03/13/22 20:43 03/13/22 20:47 Temperature Pulse Rate 81 86 Respiratory Rate 14 12 Blood Pressure Pulse Oximetry 93 Oxygen Delivery Room Air 03/13/22 20:00 03/14/22 06:00 03/14/22 09:12 Temperature 97.0 F L Pulse Rate 87 100 Respiratory Rate 16 18 Blood Pressure 151/91 H Pulse Oximetry 97 Oxygen Delivery Room Air 03/14/22 09:14 03/14/22 09:18 Temperature Pulse Rate 96 Respiratory Rate 18 Blood Pressure Pulse Oximetry 91 Oxygen Delivery Room Air Intake/Output Intake/Output: Intake & Output 03/11/22 03/12/22 03/13/22 03/14/22 23:59 23:59 23:59 23:59 Intake Total 8865 4790 2780 0 Output Total 700 1225 2130 450 Balance 1825 3565 650 -450 Meds/Results Medications: Active Medications Generic Name Dose Route Start Last Admin Trade Name Freq PRN Reason Stop Dose Admin Acetaminophen 650 mg 03/11/22 06:33 Acetaminophen 325 Mg Tablet PO Q4H PRN Mild Pain (1-3) or Fever Albuterol 5 mg 03/11/22 08:00 03/14/22 09:12 Albuterol Sulfate Neb 2.5 Mg/3 Ml Inh INHALATION 5 mg Q6HRT BK Administration Aspirin 81 mg 03/12/22 08:00 03/13/22 08:07 Aspirin 81 Mg Chewable Tablet PO 81 mg DAILY@0800 BK Administration Atorvastatin Calcium 20 mg 03/13/22 09:00 03/13/22 08:06 Atorvastatin 20 Mg Tablet PO 20 mg DAILY BK Administration Bisacodyl 5 mg 03/12/22 12:13 03/12/22 12:26 Bisacodyl 5 Mg Tablet Ec PO 5 mg QAM PRN Administration Constipation Ceftriaxone Sodium/Dextrose 1 gm in 50 mls @ 100 mls/hr 03/12/22 06:00 03/14/22 03:12 Rocephin 1 Gm/D5w 50 Ml IVPB Not Given Q24H BK Azithromycin 500 mg in 250 mls @ 250 mls/hr 03/12/22 06:00 03/14/22 03:12 Zithromax IVPB Not Given Q24H BK Sodium Chloride 1,000 mls @ 125 mls/hr 03/11/22 06:35 03/14/22 03:12 Normal Saline Iv IV CONT Not Given .Q8H BK Metronidazole 500 mg in 100 mls @ 100 mls/hr 03/11/22 09:00 03/14/22 00:04 Flagyl 500 Mg/Iso Soln 100 Ml IVPB Not Given Q8H BK Ipratropium [employer] 0.5 mg 03/11/22 08:00 03/14/22 09:12 Ipratropium Br 0.02% Inh Soln 0.5 Mg/2.5 Ml Vial INHALATION 0.5 mg Q6HRT BK Administration Metoprolol Succinate 25 mg 03/13/22 09:00 03/13/22 08:07 Metoprolol Succinate Ext Rel 25 Mg Tabcr PO 25 mg DAILY BK Administration Radiology Results: ITS Impressions Chest X-Ray 03/11/22 08:27 IMPRESSION: 1. Minimal right basilar airspace opacity, consistent with atelectasis versus pneumonia.
--- NOTE | 2022-03-14 14:06 | PCPTNOTE ---
The patient treatment was not able to be completed on 03/14/2022 due to patient unable to be arouse enough to participate with PT. Will plan to continue treatment per plan of care.
[2022-03-14] MEDS: metroNIDAZOLE 500 MG/ISO 100ML 500 MG/100 ML BAG 100 MG IVPB ×2 (16:15→21:07)
[2022-03-14] MEDS: SODIUM CHLORIDE 0.9% IV 1,000 ML 125 ML IV CONT (21:07)
[2022-03-15] VITALS (12 sets, daily range): BP systolic 119–126; BP diastolic 73–80; PULSE 76–119; RESP 16–22; TEMP 35.8–37.7; O2SAT 90–97
[2022-03-15] MEDS: IPRATROPIUM BR 0.02% INH SOLN 0.5 MG/2.5 ML VIAL INHALATION ×3 (02:00→21:09)
[2022-03-15] MEDS: ALBUTEROL SULFATE NEB 2.5 MG/3 ML INH 5 MG INHALATION ×3 (02:00→21:09)
[2022-03-15] MEDS: metroNIDAZOLE 500 MG/ISO 100ML 500 MG/100 ML BAG 100 MG IVPB ×3 (05:28→21:00)
[2022-03-15 05:40] LABS: Basophils Percent Auto 0.2 % (0.2-1.2); Hematocrit 38.5 % (42.0-52.0); Hemoglobin 13.3 g/dL (14.0-18.0); Immature Granulocyte Absolute 0.06 K/mm3 (0.00-0.031); Immature Granulocyte Percent A 0.5 % (0-0.5); Lymphocytes Absolute Auto 0.67 K/mm3 (0.9-3.2); Lymphocytes Percent Auto 5.3 % (18.3-44.2); Mean Corpuscular HGB Conc 34.5 g/dl (32-36); Mean Corpuscular Hemoglobin 31.5 pg (26-34); Mean Corpuscular Volume 91.2 fl (80-100); Monocytes Percent Auto 7.5 % (2.6-8.5); Neutrophils Percent Auto 86.5 % (45.5-73.1); Platelet Count Result 215 k/mm3 (150-375); Red Blood Count 4.22 M/mm3 (4.6-6.20); Red Cell Distribution Width 15.7 % (11.5-14.5); White Blood Count 12.7 K/mm3 (4.5-10.0)
[2022-03-15 05:59] LABS: Alanine Aminotransferase 24 U/L (6-50); Albumin Level 3.6 g/dL (3.5-5.1); Alkaline Phosphatase 49 U/L (38-126); Anion Gap 10 mmol/L (8-16); Aspartate Amino Transferase 38 U/L (17-59); Bilirubin,Total 1.4 mg/dL (0.2-1.3); Blood Urea Nitrogen 29 mg/dL (9-20); Calcium 8.5 mg/dL (8.4-10.2); Carbon Dioxide 20 mmol/L (22-30); Chloride 109 mmol/L (98-107); Estimated CRCL calculation 23 ml/min; Estimated Glomerular Filt Rate 36; Glucose 132 mg/dL (65-110); Potassium 3.9 mmol/L (3.4-5.0); Sodium 139 mmol/L (137-145)
[2022-03-15] MEDS: METOPROLOL SUCCINATE EXT REL 25 MG TABCR PO (07:28)
[2022-03-15] MEDS: ASPIRIN 81 MG CHEWABLE TABLET PO (07:28)
[2022-03-15] MEDS: ATORVASTATIN 20 MG TABLET PO (07:29)
--- NOTE | 2022-03-15 12:49 | PM.IMPN ---
Progress Note: A&P Assessment and Plan (1) Pneumonia: Code(s): J18.9 - Pneumonia, unspecified organism Status: Acute Assessment and Plan: Continue IV antibiotics. Rest 3 status improved (2) Dementia: Code(s): F03.90 - Unspecified dementia without behavioral disturbance Status: Acute Assessment and Plan: patient remains clinically stable no agitation noted today continue IV antibiotics (3) COPD (chronic obstructive pulmonary disease): Code(s): J44.9 - Chronic obstructive pulmonary disease, unspecified Status: Acute Assessment and Plan: will resume home medication appears compensated (4) Elevated troponin: Code(s): R77.8 - Other specified abnormalities of plasma proteins Status: Acute Assessment and Plan: likely related type 2 MRI. No chest pain. non cardiac (5) Acute kidney injury: Code(s): N17.9 - Acute kidney failure, unspecified Status: Acute Assessment and Plan: Elevated creatinine today. Likely related to dehydration will give a little bit of fluid and see how he does. Likely discharge tomorrow Subjective Date/time seen: 03/15/22 12:49 Feeling okay ambulating today with assistance Exam Narrative: elderly frail Patient is comfortable, NAD HEENT: eyes are clear and none icteric LUNGS: normal respiratory effort ABD: not distended Lower extremities: no edema SKIN: nonjaundiced Neuro: confused. Objective Data Vital Signs Vital Signs: Vital Signs - 24 hr 03/14/22 14:33 03/14/22 14:55 03/14/22 20:00 Temperature 99.2 F Pulse Rate 96 85 100 Respiratory Rate 18 16 22 H Blood Pressure 139/85 Pulse Oximetry 95 Oxygen Delivery Oxygen Flow Rate 03/14/22 20:01 03/14/22 20:12 03/14/22 20:00 Temperature Pulse Rate 112 H 112 H Respiratory Rate 20 20 Blood Pressure Pulse Oximetry 92 92 Oxygen Delivery Nasal Cannula Nasal Cannula Oxygen Flow Rate 2.5 2 03/14/22 22:00 03/15/22 02:07 03/15/22 02:17 Temperature 97.4 F L Pulse Rate 104 H 112 H 119 H Respiratory Rate 20 22 H 22 H Blood Pressure 133/80 Pulse Oximetry 95 Oxygen Delivery Oxygen Flow Rate 03/15/22 05:48 03/15/22 07:29 03/15/22 07:20 Temperature 97.8 F Pulse Rate 106 H 108 H Respiratory Rate 20 22 H Blood Pressure 126/80 Pulse Oximetry 93 90 Oxygen Delivery Room Air Oxygen Flow Rate 03/15/22 07:30 03/15/22 08:00 Temperature Pulse Rate 109 H Respiratory Rate 22 H Blood Pressure Pulse Oximetry 91 Oxygen Delivery Room Air Oxygen Flow Rate Intake/Output Intake/Output: Intake & Output 03/12/22 03/13/22 03/14/22 03/15/22 23:59 23:59 23:59 23:59 Intake Total 4790 2780 1300 400 Output Total 1225 2130 475 Balance 3565 650 825 400 Meds/Results Medications: Active Medications Generic Name Dose Route Start Last Admin Trade Name Freq PRN Reason Stop Dose Admin Acetaminophen 650 mg 03/11/22 06:33 Acetaminophen 325 Mg Tablet PO Q4H PRN Mild Pain (1-3) or Fever Albuterol 5 mg 03/11/22 08:00 03/15/22 07:28 Albuterol Sulfate Neb 2.5 Mg/3 Ml Inh INHALATION 5 mg Q6HRT BK Administration Aspirin 81 mg 03/12/22 08:00 03/15/22 07:28 Aspirin 81 Mg Chewable Tablet PO 81 mg DAILY@0800 BK Administration Atorvastatin Calcium 20 mg 03/13/22 09:00 03/15/22 07:29 Atorvastatin 20 Mg Tablet PO 20 mg DAILY BK Administration Bisacodyl 5 mg 03/12/22 12:13 03/12/22 12:26 Bisacodyl 5 Mg Tablet Ec PO 5 mg QAM PRN Administration Constipation Sodium Chloride 1,000 mls @ 125 mls/hr 03/11/22 06:35 03/14/22 21:07 Normal Saline Iv IV CONT 125 mls/hr .Q8H BK Administration Ceftriaxone Sodium/Dextrose 1 gm in 50 mls @ 100 mls/hr 03/14/22 16:00 03/15/22 07:31 Rocephin 1 Gm/D5w 50 Ml IVPB Infused Q24H BK Infusion Azithromycin 500 mg in 250 mls @ 250 mls/hr 03/14/22 16:00 03/15/22 07:3
--- NOTE | 2022-03-15 12:56 | PCNFU ---
Nutrition Follow-Up Complete: Inadequate oral intake R/T poor PO intake AEB decreased appetite and reported intake Goal:Pt. to meet >50% of estimated nutritional needs - Pt is not meeting goal, continue with current goal. Pt current nutrition is Heart healthy, minced and moist level 5. Last recorded weight is 59.2 kg, pt has lost 9.9kg since initial visit. Bowel Motility: Last BM was recorded on 03/12. Labs Reviewed: Hgb 13.3, Hct 38.5, GFR 36, BUN 29, Cr1.8, Glu 132 Meds Noted: Saline, Dulcolax tab Skin: WNL Additional Notes: Nursing staff states pt is confused, sleeping a lot, and not eating. Nursing goes on to suggest pt has difficulty holding his utensils, drinking from a straw, and shakes a lot which is why the pt not eating his meals and for the most part is not drinking his Ensure Compact supplements. Pt is potential hospice candidate, family is not in agreement at this time. Continue to encourage intake as needed. Will monitor labs, medication, wt, and reported intake every 5 days
[2022-03-15] MEDS: SODIUM CHLORIDE 0.9% IV 250 ML IV CONT (13:28)
--- NOTE | 2022-03-15 15:27 | PCSTNOTE ---
Please refer to the Modified Barium Swallow Evaluation in the EMR.
[2022-03-16] VITALS (14 sets, daily range): BP systolic 130–150; BP diastolic 73–90; PULSE 78–94; RESP 14–20; TEMP 36.6–37.2; O2SAT 93–100
[2022-03-16] MEDS: ALBUTEROL SULFATE NEB 2.5 MG/3 ML INH 5 MG INHALATION ×3 (02:19→20:56)
[2022-03-16] MEDS: IPRATROPIUM BR 0.02% INH SOLN 0.5 MG/2.5 ML VIAL INHALATION ×3 (02:19→20:56)
[2022-03-16] MEDS: SODIUM CHLORIDE 0.9% IV 1,000 ML 125 ML IV CONT ×3 (03:00→11:57)
[2022-03-16] MEDS: metroNIDAZOLE 500 MG/ISO 100ML 500 MG/100 ML BAG 100 MG IVPB ×3 (05:05→22:35)
[2022-03-16 06:00] LABS: Basophils Percent Auto 0.2 % (0.2-1.2); Eosinophils Percent Auto 0.3 % (0-4.4); Hematocrit 34.2 % (42.0-52.0); Hemoglobin 11.9 g/dL (14.0-18.0); Immature Granulocyte Absolute 0.08 K/mm3 (0.00-0.031); Immature Granulocyte Percent A 0.6 % (0-0.5); Lymphocytes Absolute Auto 0.94 K/mm3 (0.9-3.2); Lymphocytes Percent Auto 7.2 % (18.3-44.2); Mean Corpuscular HGB Conc 34.8 g/dl (32-36); Mean Corpuscular Hemoglobin 31.6 pg (26-34); Mean Platelet Volume 11.9 fl (7.4-10.4); Monocytes Percent Auto 7.9 % (2.6-8.5); Neutrophils Percent Auto 83.8 % (45.5-73.1); Platelet Count Result 169 k/mm3 (150-375); Red Blood Count 3.76 M/mm3 (4.6-6.20); Red Cell Distribution Width 15.7 % (11.5-14.5); White Blood Count 13.1 K/mm3 (4.5-10.0)
[2022-03-16 06:14] LABS: Alanine Aminotransferase 24 U/L (6-50); Alkaline Phosphatase 39 U/L (38-126); Anion Gap 6 mmol/L (8-16); Aspartate Amino Transferase 36 U/L (17-59); Bilirubin,Total 0.9 mg/dL (0.2-1.3); Blood Urea Nitrogen 29 mg/dL (9-20); Calcium 7.9 mg/dL (8.4-10.2); Carbon Dioxide 23 mmol/L (22-30); Chloride 112 mmol/L (98-107); Estimated CRCL calculation 38 ml/min; Estimated Glomerular Filt Rate > 60; Glucose 94 mg/dL (65-110); Potassium 3.8 mmol/L (3.4-5.0); Sodium 141 mmol/L (137-145)
--- NOTE | 2022-03-16 12:06 | PM.IMPN ---
Progress Note: A&P Assessment and Plan (1) Pneumonia: Code(s): J18.9 - Pneumonia, unspecified organism Status: Acute Assessment and Plan: Continue IV antibiotics. Likely related to aspiration pneumonia. Clinically he is improving. (2) Dementia: Code(s): F03.90 - Unspecified dementia without behavioral disturbance Status: Acute Assessment and Plan: patient remains clinically stable no agitation noted today (3) COPD (chronic obstructive pulmonary disease): Code(s): J44.9 - Chronic obstructive pulmonary disease, unspecified Status: Acute Assessment and Plan: will resume home medication appears compensated (4) Elevated troponin: Code(s): R77.8 - Other specified abnormalities of plasma proteins Status: Acute Assessment and Plan: likely related type 2 MRI. No chest pain. non cardiac (5) Acute kidney injury: Code(s): N17.9 - Acute kidney failure, unspecified Status: Acute Assessment and Plan: Improved. (6) Dysphagia: Code(s): R13.10 - Dysphagia, unspecified Status: Acute Assessment and Plan: Patient failed modified barium swallow. Restrict NPO recommended by speech therapy. Lengthy discussion with patient and family they are agreeable for PEG tube. Will consult GI. Subjective Date/time seen: 03/16/22 12:06 Patient failed modified barium swallow. Strict NPO was recommended. Exam Narrative: elderly frail Patient is comfortable, NAD HEENT: eyes are clear and none icteric LUNGS: normal respiratory effort ABD: not distended Lower extremities: no edema SKIN: nonjaundiced Neuro: confused. Objective Data Vital Signs Vital Signs: Vital Signs - 24 hr 03/15/22 14:00 03/15/22 19:38 03/15/22 21:12 Temperature 99.9 F H 96.5 F L Pulse Rate 93 80 76 Respiratory Rate 16 17 20 Blood Pressure 119/73 124/73 Pulse Oximetry 92 97 Oxygen Delivery Oxygen Flow Rate 03/15/22 21:13 03/15/22 21:26 03/16/22 02:20 Temperature Pulse Rate 83 84 Respiratory Rate 20 20 Blood Pressure Pulse Oximetry 91 Oxygen Delivery Nasal Cannula Oxygen Flow Rate 2.5 03/16/22 02:32 03/16/22 03:51 03/16/22 09:10 Temperature 97.9 F Pulse Rate 91 91 92 Respiratory Rate 20 17 Blood Pressure 149/79 H Pulse Oximetry 100 96 Oxygen Delivery Nasal Cannula Oxygen Flow Rate 2 03/16/22 09:10 03/16/22 08:00 Temperature Pulse Rate 92 Respiratory Rate 14 Blood Pressure Pulse Oximetry Oxygen Delivery Room Air Oxygen Flow Rate Intake/Output Intake/Output: Intake & Output 03/13/22 03/14/22 03/15/22 03/16/22 23:59 23:59 23:59 23:59 Intake Total 2780 1300 1620 2000 Output Total 2130 475 900 950 Balance 650 099 659 1535 Meds/Results Medications: Active Medications Generic Name Dose Route Start Last Admin Trade Name Freq PRN Reason Stop Dose Admin Acetaminophen 650 mg 03/11/22 06:33 Acetaminophen 325 Mg Tablet PO Q4H PRN Mild Pain (1-3) or Fever Albuterol 5 mg 03/11/22 08:00 03/16/22 09:09 Albuterol Sulfate Neb 2.5 Mg/3 Ml Inh INHALATION 5 mg Q6HRT BK Administration Aspirin 81 mg 03/12/22 08:00 03/16/22 09:06 Aspirin 81 Mg Chewable Tablet PO Not Given DAILY@0800 BK Atorvastatin Calcium 20 mg 03/13/22 09:00 03/16/22 09:06 Atorvastatin 20 Mg Tablet PO Not Given DAILY BK Bisacodyl 5 mg 03/12/22 12:13 03/12/22 12:26 Bisacodyl 5 Mg Tablet Ec PO 5 mg QAM PRN Administration Constipation Sodium Chloride 1,000 mls @ 125 mls/hr 03/11/22 06:35 03/16/22 11:57 Normal Saline Iv IV CONT 125 mls/hr .Q8H BK Administration Ceftriaxone Sodium/Dextrose 1 gm in 50 mls @ 100 mls/hr 03/14/22 16:00 03/15/22 16:56 Rocephin 1 Gm/D5w 50 Ml IVPB 100 mls/hr Q24H BK Administration Azithromycin 500 mg in 250 mls @ 250 mls/hr 03/14/22 16:00 03/15/22 16:56 Zithromax IVPB 250 mls
--- NOTE | 2022-03-16 12:50 | PCNFU ---
Nutrition Follow-Up Complete: Inadequate oral intake R/T poor PO intake AEB decreased appetite and reported intake Goal: Pt. to meet >50% of estimated nutritional needs Pt current nutrition is NPO. Last recorded weight is 60.9 kg, up 1.7kg from 03/15. Bowel Motility: Last BM reports on 03/12 Labs Reviewed: Hgb 11.9, Hct 34.2, Alb 3.0, BUN 29 Meds Noted: Saline, Dulcolax tab Skin: WNL Additional Notes: Pt has transitioned from a heart healthy minced and moist level 5 diet (03/15) to a NPO diet after failing a modified barium swallow test. Pt was not eating well and nursing states he is having difficulty drinking from a straw, shaking, and is sleeping a lot. Pts oral intake was poor prior to NPO status, Pt and family are in agreement for PEG tube following consult with GI. Tube feeding recommendations are Jevity 1.2, starting at 20ml, advanced by 10 mls every Q4 hours until goal rate at 75ml is reached. At goal rate Jevity 1.2 provides 1,980 kcal and 92gm pro, and 1,332 ml water. Water flush 30ml every Q4 hours. Will monitor labs, medication, wt, and tube feeding every Saturday/Saturday.
[2022-03-16] MEDS: LACTATED RINGERS 1,000 ML 150 ML IV CONT (13:54)
--- NOTE | 2022-03-16 13:57 | PCNSR ---
On 03/16/22, the student, Brian Azar, provided care and completed [facility] documentation on this patient. I have reviewed the student's documentation and agree with the findings.
--- NOTE | 2022-03-16 14:53 | WPDANESEPPF ---
Anes - Initial Pre Proc Eval Procedure: Operation Date: 03/16/22 15:30 Proposed Procedures p Percutaneous Endoscopic Gastrostomy - Ralph Frederick MD Date/Time: 03/16/22 14:53 Surgeon: Cassidy Verduzco MD Pre Op Diagnosis: Pneumonia/elevated troponin Patient Data Age: 86 Gender: M Height: 1.68 m Weight: 60.9 kg Last Vital Signs Temp 98.9 F 03/16/22 13:56 Pulse 91 03/16/22 13:56 Resp 18 03/16/22 13:56 BP 130/73 03/16/22 13:56 Pulse Ox 94 03/16/22 13:56 O2 Del Method Room Air 03/16/22 13:56 O2 Flow Rate 2 03/16/22 09:10 Allergies Allergy/AdvReac Type Severity Reaction Status Date / Time morphine AdvReac Agitated Verified 12/18/21 05:18 Home Medications Medication Instructions Recorded Confirmed Type aspirin 81 mg chewable tablet 81 mg PO DAILY 12/18/21 03/11/22 History atorvastatin 20 mg tablet 20 mg PO DAILY 12/18/21 03/11/22 History metoprolol succinate 25 mg 25 mg PO DAILY 12/18/21 03/11/22 History tablet,extended release 24 hr bisacodyl 5 mg tablet 5 mg PO DAILY PRN Constipation 03/12/22 03/12/22 History Laboratory Tests 03/16/22 03/16/22 05:40 05:40 WBC 13.1 K/mm3 H K/mm3 (4.5-10.0) RBC 3.76 M/mm3 L M/mm3 (4.6-6.20) Hgb 11.9 g/dL L g/dL (14.0-18.0) Hct 34.2 % L % (42.0-52.0) MCV 91.0 fl fl (80-100) MCH 31.6 pg pg (26-34) MCHC 34.8 g/dl g/dl (32-36) RDW 15.7 % H % (11.5-14.5) Plt Count 169 k/mm3 k/mm3 (150-375) MPV 11.9 fl H fl (7.4-10.4) Immature Gran % (Auto) 0.6 % H % (0-0.5) Neut % (Auto) 83.8 % H % (45.5-73.1) Lymph % (Auto) 7.2 % L % (18.3-44.2) [place] % (Auto) 7.9 % % (2.6-8.5) Eos % (Auto) 0.3 % % (0-4.4) Baso % (Auto) 0.2 % % (0.2-1.2) Lymph # (Auto) 0.94 K/mm3 K/mm3 (0.9-3.2) [place] # (Auto) 1.0 K/mm3 H K/mm3 (0.1-0.6) Eos # (Auto) 0.0 K/mm3 K/mm3 (0-0.3) Baso # (Auto) 0.0 K/mm3 K/mm3 (0.0-0.1) Abs Immat Gran (auto) 0.08 K/mm3 H K/mm3 (0.00-0.031) Absolute Neuts (auto) 11.0 K/mm3 H K/mm3 (1.3-6.7) Absolute Nucleated RBC 0.0 K/mm3 K/mm3 (0.0-0.012) Nucleated RBC % 0.0 % % (0.0-0.2) Sodium 141 mmol/L mmol/L (137-145) Potassium 3.8 mmol/L mmol/L (3.4-5.0) Chloride 112 mmol/L H mmol/L (98-107) Carbon Dioxide 23 mmol/L mmol/L (22-30) Anion Gap 6 mmol/L L mmol/L (8-16) BUN 29 mg/dL H mg/dL (9-20) Creatinine 1.10 mg/dL mg/dL (0.7-1.3) Estim Creat Clear Calc 38 ml/min ml/min Estimated GFR > 60 (59 - ) Glucose 94 mg/dL mg/dL (65-110) Calcium 7.9 mg/dL L mg/dL (8.4-10.2) Total Bilirubin 0.9 mg/dL mg/dL (0.2-1.3) AST 36 U/L U/L (17-59) ALT 24 U/L U/L (6-50) Alkaline Phosphatase 39 U/L U/L (38-126) Total Protein 6.0 g/dL L g/dL (6.3-8.2) Albumin 3.0 g/dL L g/dL (3.5-5.1) Patient hx anesthesia problems: none Family hx anesthesia problems: none Results Review: All pre-operative results and documents have been reviewed as part of the pre-operative evaluation. [facility] Past Medical History Medical History COPD (chronic obstructive pulmonary disease) Dementia Surgical History Surgical History History of hernia repair Family History Family History Other Unknown family medical history Social History Social History Years smoked: 68 Smoking status: Current every day smoker Tobacco type: cigars Second hand tobacco smoke exposure: No Additional smoking assessment comments: 2 cigars per da;y Alcohol intake: never Alcohol use details: HEAVY
--- NOTE | 2022-03-16 15:11 | SUR.PREOP ---
1510 ORAL CARE GIVEN TO PATIENT. NO COMPLAINTS VOICED
--- NOTE | 2022-03-16 16:57 | WPDGICN ---
Assessment and Plan Assessment and plan (1) Dysphagia: Code(s): R13.10 - Dysphagia, unspecified Status: Acute Assessment and Plan: He failed a modified barium swallow. G-tube will be needed to help prevent aspiration and to provide nutrition. (2) Dementia: Code(s): F03.90 - Unspecified dementia without behavioral disturbance Status: Acute Assessment and Plan: He is unable to give a significant history himself (3) Pneumonia: Code(s): J18.9 - Pneumonia, unspecified organism Status: Acute Assessment and Plan: is on antibiotics for suspected aspiration pneumonia. CT scan shows right lower lobe pneumonia GI Consult Note Consult date/time: 03/16/22 16:57 HPI: Dominic Lazaro is a 86 year old male was admitted with aspiration pneumonia. He had a modified barium swallow test that he failed. The patient's family has discussed G-tube placement with the hospitalist and they are in agreement and wished to proceed with that. Review of Systems Review of Systems: All systems reviewed & are unremarkable except as noted in HPI and below PMFSH Past Medical History Medical History COPD (chronic obstructive pulmonary disease) Dementia Surgical History Surgical History History of hernia repair Family History Family History Other Unknown family medical history Social History Social History Years smoked: 68 Smoking status: Current every day smoker Tobacco type: cigars Second hand tobacco smoke exposure: No Additional smoking assessment comments: 2 cigars per da;y Alcohol intake: never Alcohol use details: HEAVY DRINKER IN 20'S-40'S Substance use: never Additional living arrangements comments: DAUGHTER Spiritual care concerns: No Meds Home Medications and Allergies Home Medications Medication Instructions Recorded Confirmed Type aspirin 81 mg chewable tablet 81 mg PO DAILY 12/18/21 03/11/22 History atorvastatin 20 mg tablet 20 mg PO DAILY 12/18/21 03/11/22 History metoprolol succinate 25 mg 25 mg PO DAILY 12/18/21 03/11/22 History tablet,extended release 24 hr bisacodyl 5 mg tablet 5 mg PO DAILY PRN Constipation 03/12/22 03/12/22 History Allergies Allergy/AdvReac Type Severity Reaction Status Date / Time morphine AdvReac Agitated Verified 12/18/21 05:18 Vital Signs Vital Signs - 24 hr 03/15/22 19:38 03/15/22 21:12 03/15/22 21:13 Temperature 35.8 C L Pulse Rate 80 76 Respiratory Rate 17 20 Blood Pressure 124/73 Pulse Oximetry 97 91 Oxygen Delivery Nasal Cannula Oxygen Flow Rate 2.5 03/15/22 21:26 03/16/22 02:20 03/16/22 02:32 Temperature Pulse Rate 83 84 91 Respiratory Rate 20 20 20 Blood Pressure Pulse Oximetry Oxygen Delivery Oxygen Flow Rate 03/16/22 03:51 03/16/22 09:10 03/16/22 09:10 Temperature 36.6 C Pulse Rate 91 92 92 Respiratory Rate 17 14 Blood Pressure 149/79 H Pulse Oximetry 100 96 Oxygen Delivery Nasal Cannula Oxygen Flow Rate 2 03/16/22 08:00 03/16/22 13:56 Temperature 37.2 C Pulse Rate 91 Respiratory Rate 18 Blood Pressure 130/73 Pulse Oximetry 94 Oxygen Delivery Room Air Room Air Oxygen Flow Rate Exam Const: General: alert Orientation/consciousness: confusion Resp: Auscultation: clear to auscultation bilaterally Cardio: Rhythm: regular rhythm GI: GI Palp: Yes Soft to palpation and No Tenderness to palpation present (GI) Auscultation: normal bowel sounds Neuro: General: patient oriented x3 Results Labs CBC & Chem 7: 03/16/22 05:40 03/16/22 05:40 Labs: Short CBC 03/16/22 Range/Units 05:40 WBC 13.1 H (4.5-10.0) K/mm3 Hgb 11.9 L (14.0-18.0) g/dL
[2022-03-17] VITALS (14 sets, daily range): BP systolic 128–131; BP diastolic 72–79; PULSE 73–87; RESP 14–22; TEMP 36.4–36.9; O2SAT 93–98
[2022-03-17] MEDS: ALBUTEROL SULFATE NEB 2.5 MG/3 ML INH 5 MG INHALATION ×4 (02:13→20:57)
[2022-03-17] MEDS: SODIUM CHLORIDE 0.9% IV 1,000 ML 125 ML IV CONT ×3 (05:17→23:00)
[2022-03-17] MEDS: metroNIDAZOLE 500 MG/ISO 100ML 500 MG/100 ML BAG 100 MG IVPB ×3 (05:19→21:25)
[2022-03-17 05:36] LABS: Basophils Percent Auto 0.2 % (0.2-1.2); Eosinophils Percent Auto 0.2 % (0-4.4); Hematocrit 32.5 % (42.0-52.0); Hemoglobin 10.9 g/dL (14.0-18.0); Immature Granulocyte Absolute 0.06 K/mm3 (0.00-0.031); Immature Granulocyte Percent A 0.5 % (0-0.5); Lymphocytes Absolute Auto 1.22 K/mm3 (0.9-3.2); Lymphocytes Percent Auto 10.6 % (18.3-44.2); Mean Corpuscular HGB Conc 33.5 g/dl (32-36); Mean Corpuscular Hemoglobin 31.1 pg (26-34); Mean Corpuscular Volume 92.9 fl (80-100); Mean Platelet Volume 11.7 fl (7.4-10.4); Monocytes Absolute Auto 0.9 K/mm3 (0.1-0.6); Monocytes Percent Auto 8.1 % (2.6-8.5); Neutrophils Absolute Auto 9.3 K/mm3 (1.3-6.7); Neutrophils Percent Auto 80.4 % (45.5-73.1); Platelet Count Result 172 k/mm3 (150-375); Red Cell Distribution Width 15.7 % (11.5-14.5); White Blood Count 11.5 K/mm3 (4.5-10.0)
[2022-03-17 05:37] LABS: Alanine Aminotransferase 24 U/L (6-50); Albumin Level 2.6 g/dL (3.5-5.1); Alkaline Phosphatase 36 U/L (38-126); Anion Gap 3 mmol/L (8-16); Aspartate Amino Transferase 29 U/L (17-59); Bilirubin,Total 0.8 mg/dL (0.2-1.3); Blood Urea Nitrogen 20 mg/dL (9-20); Calcium 7.3 mg/dL (8.4-10.2); Carbon Dioxide 25 mmol/L (22-30); Chloride 110 mmol/L (98-107); Estimated CRCL calculation 54 ml/min; Estimated Glomerular Filt Rate > 60; Glucose 108 mg/dL (65-110); Potassium 3.6 mmol/L (3.4-5.0); Sodium 138 mmol/L (137-145)
--- NOTE | 2022-03-17 08:04 | P.PNAN_ITS ---
Anes - Prog Note Post-Op Date/Time: 03/17/22 08:04 Vital Signs: Last Vital Signs Temp 36.4 C L 03/17/22 05:05 Pulse 83 03/17/22 05:05 Resp 22 H 03/17/22 05:05 BP 128/74 03/17/22 05:05 Pulse Ox 98 03/17/22 05:05 O2 Del Method Room Air 03/16/22 20:58 O2 Flow Rate 2 03/16/22 17:42 Pain Score (VAS): 10/26 I/O: Intake & Output 03/16/22 03/17/22 03/17/22 23:59 07:59 15:59 Intake Total 1800 266 Output Total 1000 1000 Balance 800 -734 Laboratory Tests 03/17/22 05:14 03/17/22 05:14 03/17/22 03/17/22 05:14 05:14 WBC 11.5 H RBC 3.50 L Hgb 10.9 L Hct 32.5 L MCV 92.9 MCH 31.1 MCHC 33.5 RDW 15.7 H Plt Count 172 MPV 11.7 H Immature Gran % (Auto) 0.5 Neut % (Auto) 80.4 H Lymph % (Auto) 10.6 L [place] % (Auto) 8.1 Eos % (Auto) 0.2 Baso % (Auto) 0.2 Lymph # (Auto) 1.22 [place] # (Auto) 0.9 H Eos # (Auto) 0.0 Baso # (Auto) 0.0 Abs Immat Gran (auto) 0.06 H Absolute Neuts (auto) 9.3 H Absolute Nucleated RBC 0.0 Nucleated RBC % 0.0 Sodium 138 Potassium 3.6 Chloride 110 H Carbon Dioxide 25 Anion Gap 3 L BUN 20 Creatinine 0.80 Estim Creat Clear Calc 54 Estimated GFR > 60 Glucose 108 Calcium 7.3 L Total Bilirubin 0.8 AST 29 ALT 24 Alkaline Phosphatase 36 L Total Protein 5.0 L Albumin 2.6 L Microbiology 03/11/22 04:27 Blood Blood Culture - Final Patient Feedback: Patient satisfied with anesthetic care.
[2022-03-17] MEDS: IPRATROPIUM BR 0.02% INH SOLN 0.5 MG/2.5 ML VIAL INHALATION ×3 (08:09→20:57)
[2022-03-17] MEDS: ASPIRIN 81 MG CHEWABLE TABLET PO (09:13)
[2022-03-17] MEDS: METOPROLOL SUCCINATE EXT REL 25 MG TABCR PO (09:13)
[2022-03-17] MEDS: ATORVASTATIN 20 MG TABLET PO (09:13)
--- NOTE | 2022-03-17 12:39 | PM.IMPN ---
Progress Note: A&P Assessment and Plan (1) Pneumonia: Code(s): J18.9 - Pneumonia, unspecified organism Status: Acute Assessment and Plan: Continue IV antibiotics. Likely related to aspiration pneumonia. Clinically he is improving. (2) Dementia: Code(s): F03.90 - Unspecified dementia without behavioral disturbance Status: Acute Assessment and Plan: patient remains clinically stable no agitation noted today (3) COPD (chronic obstructive pulmonary disease): Code(s): J44.9 - Chronic obstructive pulmonary disease, unspecified Status: Acute Assessment and Plan: will resume home medication appears compensated (4) Elevated troponin: Code(s): R77.8 - Other specified abnormalities of plasma proteins Status: Acute Assessment and Plan: likely related type 2 MRI. No chest pain. non cardiac (5) Acute kidney injury: Code(s): N17.9 - Acute kidney failure, unspecified Status: Acute Assessment and Plan: Improved. (6) Dysphagia: Code(s): R13.10 - Dysphagia, unspecified Status: Acute Assessment and Plan: Status post G-tube placed. Continue tube feeds. Subjective Date/time seen: 03/17/22 12:39 No complaints, G-tube place yesterday Exam Narrative: elderly frail Patient is comfortable, NAD HEENT: eyes are clear and none icteric LUNGS: normal respiratory effort ABD: not distended Lower extremities: no edema SKIN: nonjaundiced Neuro: confused. Objective Data Vital Signs Vital Signs: Vital Signs - 24 hr 03/16/22 13:56 03/16/22 17:32 03/16/22 17:42 Temperature 98.9 F Pulse Rate 91 87 84 Respiratory Rate 18 20 16 Blood Pressure 130/73 144/88 H 144/88 H Pulse Oximetry 94 95 96 Oxygen Delivery Room Air Nasal Cannula Nasal Cannula Oxygen Flow Rate 3 2 03/16/22 17:52 03/16/22 18:15 03/16/22 18:30 Temperature 98.9 F 98.1 F Pulse Rate 78 91 85 Respiratory Rate 16 18 16 Blood Pressure 144/85 H 150/85 H 148/81 H Pulse Oximetry 97 95 96 Oxygen Delivery Room Air Oxygen Flow Rate 03/16/22 19:53 03/16/22 20:58 03/16/22 20:59 Temperature 98.3 F Pulse Rate 94 83 Respiratory Rate 20 14 Blood Pressure 147/90 H Pulse Oximetry 96 93 Oxygen Delivery Room Air Oxygen Flow Rate 03/16/22 21:15 03/17/22 02:15 03/17/22 02:27 Temperature Pulse Rate 89 78 80 Respiratory Rate 14 14 14 Blood Pressure Pulse Oximetry Oxygen Delivery Oxygen Flow Rate 03/17/22 05:05 03/17/22 08:00 03/17/22 08:09 Temperature 97.5 F L Pulse Rate 83 87 Respiratory Rate 22 H 16 Blood Pressure 128/74 Pulse Oximetry 98 93 Oxygen Delivery Room Air Oxygen Flow Rate 03/17/22 09:13 Temperature Pulse Rate 84 Respiratory Rate Blood Pressure Pulse Oximetry Oxygen Delivery Oxygen Flow Rate Intake/Output Intake/Output: Intake & Output 03/14/22 03/15/22 03/16/22 03/17/22 23:59 23:59 23:59 23:59 Intake Total 1300 1620 4000 266 Output Total 211 762 2404 1000 Balance 704 130 6110 -734 Meds/Results Medications: Active Medications Generic Name Dose Route Start Last Admin Trade Name Dougq PRN Reason Stop Dose Admin Acetaminophen 650 mg 03/11/22 06:33 Acetaminophen 325 Mg Tablet PO Q4H PRN Mild Pain (1-3) or Fever Albuterol 5 mg 03/11/22 08:00 03/17/22 08:09 Albuterol Sulfate Neb 2.5 Mg/3 Ml Inh INHALATION 5 mg Q6HRT BK Administration Aspirin 81 mg 03/12/22 08:00 03/17/22 09:13 Aspirin 81 Mg Chewable Tablet PO 81 mg DAILY@0800 BK Administration Atorvastatin Calcium 20 mg 03/13/22 09:00 03/17/22 09:13 Atorvastatin 20 Mg Tablet PO 20 mg DAILY BK Administration Bisacodyl 5 mg 03/12/22 12:13 03/12/22 12:26 Bisacodyl 5 Mg Tablet Ec PO 5 mg QAM PRN Administration Constipation Sodium Chloride 1,000 mls @ 125 mls/hr 03/11/22 06:35 03/17/22 05:17 Normal Saline Iv IV CONT 125
--- NOTE | 2022-03-17 13:32 | PCDIET ---
Spoke with nursing and MD today, patient is tolerating tube feedings at 30 ml/hr at this time. Goal rate is 75 ml/hr providing 1980 kcals/92 gms protein, meeting 94% of caloric needs and 100% protein needs. Free water flush current at 30 ml q 4 hours. If patient goes home on bolus feedings nutrition recommendations: 330 ml 5 x daily, providing 1980 kcals/92 gms protein. Water flush 100 ml with feedings. Will continue to monitor every Saturday and Saturday.
[2022-03-18] VITALS (15 sets, daily range): BP systolic 121–136; BP diastolic 66–76; PULSE 70–91; RESP 14–22; TEMP 36.2–37.3; O2SAT 83–97
[2022-03-18] MEDS: ALBUTEROL SULFATE NEB 2.5 MG/3 ML INH 5 MG INHALATION ×4 (02:39→19:29)
[2022-03-18] MEDS: IPRATROPIUM BR 0.02% INH SOLN 0.5 MG/2.5 ML VIAL INHALATION ×4 (02:40→19:29)
[2022-03-18] MEDS: metroNIDAZOLE 500 MG/ISO 100ML 500 MG/100 ML BAG 100 MG IVPB ×3 (05:07→21:12)
[2022-03-18 06:06] LABS: Basophils Percent Auto 0.2 % (0.2-1.2); Eosinophils Absolute Auto 0.2 K/mm3 (0-0.3); Eosinophils Percent Auto 2.2 % (0-4.4); Hematocrit 31.1 % (42.0-52.0); Hemoglobin 10.8 g/dL (14.0-18.0); Immature Granulocyte Absolute 0.16 K/mm3 (0.00-0.031); Immature Granulocyte Percent A 1.9 % (0-0.5); Lymphocytes Absolute Auto 1.19 K/mm3 (0.9-3.2); Lymphocytes Percent Auto 13.9 % (18.3-44.2); Mean Corpuscular HGB Conc 34.7 g/dl (32-36); Mean Corpuscular Hemoglobin 31.4 pg (26-34); Mean Corpuscular Volume 90.4 fl (80-100); Mean Platelet Volume 10.9 fl (7.4-10.4); Monocytes Absolute Auto 0.9 K/mm3 (0.1-0.6); Monocytes Percent Auto 10.4 % (2.6-8.5); Neutrophils Absolute Auto 6.1 K/mm3 (1.3-6.7); Neutrophils Percent Auto 71.4 % (45.5-73.1); Platelet Count Result 191 k/mm3 (150-375); Red Blood Count 3.44 M/mm3 (4.6-6.20); Red Cell Distribution Width 15.5 % (11.5-14.5); White Blood Count 8.6 K/mm3 (4.5-10.0)
[2022-03-18 06:20] LABS: Alanine Aminotransferase 25 U/L (6-50); Albumin Level 2.6 g/dL (3.5-5.1); Alkaline Phosphatase 35 U/L (38-126); Anion Gap 1 mmol/L (8-16); Aspartate Amino Transferase 29 U/L (17-59); Bilirubin,Total 0.5 mg/dL (0.2-1.3); Blood Urea Nitrogen 16 mg/dL (9-20); Calcium 7.2 mg/dL (8.4-10.2); Carbon Dioxide 24 mmol/L (22-30); Chloride 110 mmol/L (98-107); Estimated CRCL calculation 54 ml/min; Estimated Glomerular Filt Rate > 60; Glucose 118 mg/dL (65-110); Potassium 3.6 mmol/L (3.4-5.0); Sodium 135 mmol/L (137-145)
[2022-03-18 07:33] LABS: Burr Cells 2+ (NORMAL); Platelet Estimate Adequate (Adequate)
[2022-03-18] MEDS: ATORVASTATIN 20 MG TABLET PO (08:48)
[2022-03-18] MEDS: ASPIRIN 81 MG CHEWABLE TABLET PO (08:48)
[2022-03-18] MEDS: METOPROLOL SUCCINATE EXT REL 25 MG TABCR PO (08:48)
--- NOTE | 2022-03-18 11:06 | PM.IMPN ---
Progress Note: A&P Assessment and Plan (1) Pneumonia: Code(s): J18.9 - Pneumonia, unspecified organism Status: Acute Assessment and Plan: Continue IV antibiotics. Likely related to aspiration pneumonia. Clinically he is improving. (2) Dementia: Code(s): F03.90 - Unspecified dementia without behavioral disturbance Status: Acute Assessment and Plan: patient remains clinically stable no agitation noted today (3) COPD (chronic obstructive pulmonary disease): Code(s): J44.9 - Chronic obstructive pulmonary disease, unspecified Status: Acute Assessment and Plan: will resume home medication appears compensated (4) Elevated troponin: Code(s): R77.8 - Other specified abnormalities of plasma proteins Status: Acute Assessment and Plan: likely related type 2 MRI. No chest pain. non cardiac (5) Acute kidney injury: Code(s): N17.9 - Acute kidney failure, unspecified Status: Acute Assessment and Plan: Improved. (6) Dysphagia: Code(s): R13.10 - Dysphagia, unspecified Status: Acute Assessment and Plan: Status post G-tube placed. Continue tube feeds. Subjective Date/time seen: 03/18/22 11:06 No acute events Overnite. Patient no new complaints. Exam Narrative: elderly frail Patient is comfortable, NAD HEENT: eyes are clear and none icteric LUNGS: normal respiratory effort ABD: not distended Lower extremities: no edema SKIN: nonjaundiced Neuro: confused. Objective Data Vital Signs Vital Signs: Vital Signs - 24 hr 03/17/22 14:20 03/17/22 14:29 03/17/22 15:00 Temperature 98.4 F Pulse Rate 79 82 77 Respiratory Rate 14 14 20 Blood Pressure 131/72 Pulse Oximetry 98 Oxygen Delivery 03/17/22 20:12 03/17/22 20:58 03/17/22 21:00 Temperature 98 F Pulse Rate 73 81 Respiratory Rate 16 14 Blood Pressure 128/79 Pulse Oximetry 95 94 Oxygen Delivery Room Air 03/17/22 21:05 03/18/22 02:41 03/18/22 02:53 Temperature Pulse Rate 80 70 74 Respiratory Rate 14 16 14 Blood Pressure Pulse Oximetry Oxygen Delivery 03/18/22 04:40 03/18/22 08:48 03/18/22 09:25 Temperature 97.2 F L Pulse Rate 91 82 Respiratory Rate 18 Blood Pressure 136/76 Pulse Oximetry 96 95 Oxygen Delivery Room Air 03/18/22 09:25 03/18/22 09:33 03/18/22 09:33 Temperature Pulse Rate 75 78 Respiratory Rate 14 14 Blood Pressure Pulse Oximetry 95 Oxygen Delivery Intake/Output Intake/Output: Intake & Output 03/15/22 03/16/22 03/17/22 03/18/22 23:59 23:59 23:59 23:59 Intake Total 1620 4000 2766 1072 Output Total 900 1950 1550 700 Balance 720 2050 1216 372 Meds/Results Medications: Active Medications Generic Name Dose Route Start Last Admin Trade Name Freq PRN Reason Stop Dose Admin Acetaminophen 650 mg 03/11/22 06:33 Acetaminophen 325 Mg Tablet PO Q4H PRN Mild Pain (1-3) or Fever Albuterol 5 mg 03/11/22 08:00 03/18/22 09:29 Albuterol Sulfate Neb 2.5 Mg/3 Ml Inh INHALATION 5 mg Q6HRT BK Administration Aspirin 81 mg 03/12/22 08:00 03/18/22 08:48 Aspirin 81 Mg Chewable Tablet PO 81 mg DAILY@0800 BK Administration Atorvastatin Calcium 20 mg 03/13/22 09:00 03/18/22 08:48 Atorvastatin 20 Mg Tablet PO 20 mg DAILY BK Administration Bisacodyl 5 mg 03/12/22 12:13 03/12/22 12:26 Bisacodyl 5 Mg Tablet Ec PO 5 mg QAM PRN Administration Constipation Sodium Chloride 1,000 mls @ 125 mls/hr 03/11/22 06:35 03/17/22 23:00 Normal Saline Iv IV CONT 125 mls/hr .Q8H BK Administration Ceftriaxone Sodium/Dextrose 1 gm in 50 mls @ 100 mls/hr 03/14/22 16:00 03/17/22 15:29 Rocephin 1 Gm/D5w 50 Ml IVPB Infused Q24H BK Infusion Azithromycin 500 mg in 250 mls @ 250 mls/hr 03/14/22 16:00 03/17/22 16:40 Zithromax IVPB Infused Q24H BK Infusion Metronidazole 500 m
[2022-03-18] MEDS: SODIUM CHLORIDE 0.9% IV 1,000 ML 125 ML IV CONT (12:31)
[2022-03-19] VITALS (13 sets, daily range): BP systolic 111–128; BP diastolic 64–75; PULSE 78–93; RESP 14–18; TEMP 35.9–36.8; O2SAT 93–98
[2022-03-19] MEDS: metroNIDAZOLE 500 MG/ISO 100ML 500 MG/100 ML BAG 100 MG IVPB ×3 (05:44→21:40)
[2022-03-19] MEDS: SODIUM CHLORIDE 0.9% IV 1,000 ML 125 ML IV CONT (05:45)
[2022-03-19 06:16] LABS: Basophils Percent Auto 0.3 % (0.2-1.2); Eosinophils Absolute Auto 0.3 K/mm3 (0-0.3); Hematocrit 30.9 % (42.0-52.0); Hemoglobin 10.7 g/dL (14.0-18.0); Immature Granulocyte Absolute 0.04 K/mm3 (0.00-0.031); Immature Granulocyte Percent A 0.6 % (0-0.5); Lymphocytes Absolute Auto 1.22 K/mm3 (0.9-3.2); Lymphocytes Percent Auto 16.8 % (18.3-44.2); Mean Corpuscular HGB Conc 34.6 g/dl (32-36); Mean Corpuscular Hemoglobin 31.1 pg (26-34); Mean Corpuscular Volume 89.8 fl (80-100); Mean Platelet Volume 10.7 fl (7.4-10.4); Monocytes Absolute Auto 0.6 K/mm3 (0.1-0.6); Monocytes Percent Auto 8.5 % (2.6-8.5); Neutrophils Absolute Auto 5.1 K/mm3 (1.3-6.7); Neutrophils Percent Auto 69.8 % (45.5-73.1); Platelet Count Result 203 k/mm3 (150-375); Red Blood Count 3.44 M/mm3 (4.6-6.20); Red Cell Distribution Width 15.2 % (11.5-14.5); White Blood Count 7.3 K/mm3 (4.5-10.0)
[2022-03-19 06:27] LABS: Alanine Aminotransferase 25 U/L (6-50); Albumin Level 2.4 g/dL (3.5-5.1); Alkaline Phosphatase 38 U/L (38-126); Anion Gap 0 mmol/L (8-16); Aspartate Amino Transferase 28 U/L (17-59); Bilirubin,Total 0.3 mg/dL (0.2-1.3); Blood Urea Nitrogen 15 mg/dL (9-20); Calcium 7.4 mg/dL (8.4-10.2); Carbon Dioxide 28 mmol/L (22-30); Chloride 105 mmol/L (98-107); Estimated CRCL calculation 54 ml/min; Estimated Glomerular Filt Rate > 60; Glucose 121 mg/dL (65-110); Sodium 133 mmol/L (137-145)
[2022-03-19] MEDS: IPRATROPIUM BR 0.02% INH SOLN 0.5 MG/2.5 ML VIAL INHALATION ×3 (07:57→19:30)
[2022-03-19] MEDS: ALBUTEROL SULFATE NEB 2.5 MG/3 ML INH 5 MG INHALATION ×3 (07:57→19:30)
[2022-03-19] MEDS: METOPROLOL SUCCINATE EXT REL 25 MG TABCR PO (09:51)
[2022-03-19] MEDS: ASPIRIN 81 MG CHEWABLE TABLET PO (09:51)
[2022-03-19] MEDS: ATORVASTATIN 20 MG TABLET PO (09:51)
--- NOTE | 2022-03-19 13:16 | PM.IMPN ---
Progress Note: A&P Assessment and Plan (1) Pneumonia: Code(s): J18.9 - Pneumonia, unspecified organism Status: Acute Assessment and Plan: Continue IV antibiotics. Likely related to aspiration pneumonia. Clinically he is improving. (2) Dementia: Code(s): F03.90 - Unspecified dementia without behavioral disturbance Status: Acute Assessment and Plan: patient remains clinically stable no agitation noted today (3) COPD (chronic obstructive pulmonary disease): Code(s): J44.9 - Chronic obstructive pulmonary disease, unspecified Status: Acute Assessment and Plan: will resume home medication appears compensated (4) Elevated troponin: Code(s): R77.8 - Other specified abnormalities of plasma proteins Status: Acute Assessment and Plan: likely related type 2 MRI. No chest pain. non cardiac (5) Acute kidney injury: Code(s): N17.9 - Acute kidney failure, unspecified Status: Acute Assessment and Plan: Improved. (6) Dysphagia: Code(s): R13.10 - Dysphagia, unspecified Status: Acute Assessment and Plan: Status post G-tube placed. Continue tube feeds. Subjective Date/time seen: 03/19/22 13:16 Denies complaints Exam Narrative: elderly frail Patient is comfortable, NAD HEENT: eyes are clear and none icteric LUNGS: normal respiratory effort ABD: not distended Lower extremities: no edema SKIN: nonjaundiced Neuro: confused. Objective Data Vital Signs Vital Signs: Vital Signs - 24 hr 03/18/22 14:05 03/18/22 14:12 03/18/22 14:00 Temperature 99.1 F Pulse Rate 85 81 81 Respiratory Rate 14 14 16 Blood Pressure 136/68 Pulse Oximetry 96 Oxygen Delivery Oxygen Flow Rate 03/18/22 19:31 03/18/22 19:32 03/18/22 19:45 Temperature Pulse Rate 87 91 Respiratory Rate 22 H 18 Blood Pressure Pulse Oximetry 83 L Oxygen Delivery Room Air Oxygen Flow Rate 03/18/22 19:46 03/18/22 21:29 03/18/22 20:00 Temperature 97.7 F Pulse Rate 88 88 Respiratory Rate 18 18 Blood Pressure 121/66 Pulse Oximetry 94 97 97 Oxygen Delivery Nasal Cannula Room Air Oxygen Flow Rate 2 03/19/22 04:46 03/19/22 07:57 03/19/22 08:00 Temperature 97 F L Pulse Rate 88 83 83 Respiratory Rate 16 18 18 Blood Pressure 119/67 Pulse Oximetry 98 93 Oxygen Delivery Nasal Cannula Oxygen Flow Rate 1 03/19/22 08:07 03/19/22 09:51 Temperature Pulse Rate 82 84 Respiratory Rate 18 Blood Pressure Pulse Oximetry Oxygen Delivery Oxygen Flow Rate Intake/Output Intake/Output: Intake & Output 03/16/22 03/17/22 03/18/22 03/19/22 23:59 23:59 23:59 23:59 Intake Total 4000 2766 4384 953 Output Total 1950 1550 1700 1900 Balance 2050 1216 1677 -996 Meds/Results Medications: Active Medications Generic Name Dose Route Start Last Admin Trade Name Freq PRN Reason Stop Dose Admin Acetaminophen 650 mg 03/11/22 06:33 Acetaminophen 325 Mg Tablet PO Q4H PRN Mild Pain (1-3) or Fever Albuterol 5 mg 03/11/22 08:00 03/19/22 09:41 Albuterol Sulfate Neb 2.5 Mg/3 Ml Inh INHALATION Not Given Q6HRT BK Aspirin 81 mg 03/12/22 08:00 03/19/22 09:51 Aspirin 81 Mg Chewable Tablet PO 81 mg DAILY@0800 BK Administration Atorvastatin Calcium 20 mg 03/13/22 09:00 03/19/22 09:51 Atorvastatin 20 Mg Tablet PO 20 mg DAILY BK Administration Bisacodyl 5 mg 03/12/22 12:13 03/12/22 12:26 Bisacodyl 5 Mg Tablet Ec PO 5 mg QAM PRN Administration Constipation Sodium Chloride 1,000 mls @ 125 mls/hr 03/11/22 06:35 03/19/22 12:47 Normal Saline Iv IV CONT 125 mls/hr .Q8H BK Infusion Ceftriaxone Sodium/Dextrose 1 gm in 50 mls @ 100 mls/hr 03/14/22 16:00 03/18/22 15:50 Rocephin 1 Gm/D5w 50 Ml IVPB Infused Q24H BK Infusion Azithromycin 500 mg in 250 mls @ 250 mls/hr 03/14/22 16:00 03/18/22 16:53 Zit
[2022-03-20] VITALS (12 sets, daily range): BP systolic 112–139; BP diastolic 63–89; PULSE 89–104; RESP 14–16; TEMP 36.6–37.2; O2SAT 92–99
[2022-03-20] MEDS: ALBUTEROL SULFATE NEB 2.5 MG/3 ML INH 5 MG INHALATION ×3 (01:56→19:48)
[2022-03-20] MEDS: IPRATROPIUM BR 0.02% INH SOLN 0.5 MG/2.5 ML VIAL INHALATION ×3 (01:56→19:48)
[2022-03-20] MEDS: metroNIDAZOLE 500 MG/ISO 100ML 500 MG/100 ML BAG 100 MG IVPB ×3 (05:22→21:21)
[2022-03-20 06:00] LABS: Basophils Percent Auto 0.3 % (0.2-1.2); Eosinophils Absolute Auto 0.1 K/mm3 (0-0.3); Hematocrit 36.3 % (42.0-52.0); Hemoglobin 12.4 g/dL (14.0-18.0); Immature Granulocyte Absolute 0.05 K/mm3 (0.00-0.031); Immature Granulocyte Percent A 0.4 % (0-0.5); Lymphocytes Absolute Auto 1.13 K/mm3 (0.9-3.2); Lymphocytes Percent Auto 8.9 % (18.3-44.2); Mean Corpuscular HGB Conc 34.2 g/dl (32-36); Mean Corpuscular Hemoglobin 30.8 pg (26-34); Mean Corpuscular Volume 90.3 fl (80-100); Mean Platelet Volume 11.3 fl (7.4-10.4); Monocytes Absolute Auto 0.8 K/mm3 (0.1-0.6); Monocytes Percent Auto 6.5 % (2.6-8.5); Neutrophils Absolute Auto 10.6 K/mm3 (1.3-6.7); Neutrophils Percent Auto 82.9 % (45.5-73.1); Platelet Count Result 282 k/mm3 (150-375); Red Blood Count 4.02 M/mm3 (4.6-6.20); Red Cell Distribution Width 15.3 % (11.5-14.5); White Blood Count 12.8 K/mm3 (4.5-10.0)
[2022-03-20 06:08] LABS: Alanine Aminotransferase 28 U/L (6-50); Albumin Level 2.8 g/dL (3.5-5.1); Alkaline Phosphatase 44 U/L (38-126); Anion Gap 4 mmol/L (8-16); Aspartate Amino Transferase 31 U/L (17-59); Bilirubin,Total 0.4 mg/dL (0.2-1.3); Blood Urea Nitrogen 21 mg/dL (9-20); Calcium 7.9 mg/dL (8.4-10.2); Carbon Dioxide 25 mmol/L (22-30); Chloride 104 mmol/L (98-107); Estimated CRCL calculation 48 ml/min; Estimated Glomerular Filt Rate > 60; Glucose 151 mg/dL (65-110); Potassium 4.5 mmol/L (3.4-5.0); Sodium 133 mmol/L (137-145)
[2022-03-20] MEDS: METOPROLOL SUCCINATE EXT REL 25 MG TABCR PO (08:10)
[2022-03-20] MEDS: ATORVASTATIN 20 MG TABLET PO (08:10)
[2022-03-20] MEDS: ASPIRIN 81 MG CHEWABLE TABLET PO (08:11)
--- NOTE | 2022-03-20 09:25 | PCNFU ---
Nutrition Follow-Up Complete: Inadequate po intake related to swallowing difficulties as evidenced by need for alternative nutrition support Goal: Pt. to meet >50% of estimated nutritional needs Pt current nutrition is Jevity 1.2 at 75ml/hr per goal recommendation. Nutrition recommendation: Continue with current plan of care. Last recorded weight is 65.2 kg - down from 72kg on admission. Bowel Motility: no BM recorded at this time Labs Reviewed: hgb:12.4, HCT:36.3, Alb:2.8, BUN:21, Glu:151 Meds Noted: flagyl, dulcolax Skin: WNL Additional Notes: Pt started on Tubefeeds for nutrition. Current tube feeding rate is at goal. Patient is tolerating. Goal rate of 75 ml/hr is providing 1980 kcals/92 gms protein, and meeting 94% of caloric needs and 100% protein needs. Free water flush current at 30 ml q 4 hours. *Noted if patient goes home on bolus feedings nutrition recommendations: 330 ml 5 x daily, providing 1980 kcals/92 gms protein. Water flush 100 ml with feedings. Will monitor labs, medication, wt. Follow up every Saturday and Saturday.
--- NOTE | 2022-03-20 12:40 | PM.IMPN ---
Progress Note: A&P Assessment and Plan (1) Pneumonia: Code(s): J18.9 - Pneumonia, unspecified organism Status: Acute Assessment and Plan: Continue IV antibiotics. Today is day 7 can discharge after today. Likely related to aspiration pneumonia. Clinically he is improving. (2) Dementia: Code(s): F03.90 - Unspecified dementia without behavioral disturbance Status: Acute Assessment and Plan: patient remains clinically stable no agitation noted today (3) COPD (chronic obstructive pulmonary disease): Code(s): J44.9 - Chronic obstructive pulmonary disease, unspecified Status: Acute Assessment and Plan: will resume home medication appears compensated (4) Elevated troponin: Code(s): R77.8 - Other specified abnormalities of plasma proteins Status: Acute Assessment and Plan: likely related type 2 MRI. No chest pain. non cardiac (5) Acute kidney injury: Code(s): N17.9 - Acute kidney failure, unspecified Status: Acute Assessment and Plan: Improved. (6) Dysphagia: Code(s): R13.10 - Dysphagia, unspecified Status: Acute Assessment and Plan: Status post G-tube placed. Continue tube feeds. Tube feeds will be needed for greater than 90 days. Plan Discharge once tube feeds can be approved by the insurance Subjective Date/time seen: 03/20/22 12:40 Tolerating tube feeds well. Exam Narrative: elderly frail Patient is comfortable, NAD HEENT: eyes are clear and none icteric LUNGS: normal respiratory effort ABD: not distended Lower extremities: no edema SKIN: nonjaundiced Neuro: confused. Objective Data Vital Signs Vital Signs: Vital Signs - 24 hr 03/19/22 15:15 03/19/22 15:25 03/19/22 15:30 Temperature 96.7 F L Pulse Rate 78 83 87 Respiratory Rate 14 14 16 Blood Pressure 111/64 Pulse Oximetry 94 Oxygen Delivery 03/19/22 19:36 03/19/22 19:38 03/19/22 19:49 Temperature Pulse Rate 93 91 Respiratory Rate 14 14 Blood Pressure Pulse Oximetry 96 Oxygen Delivery Room Air 03/19/22 19:54 03/19/22 20:00 03/20/22 01:58 Temperature 98.3 F Pulse Rate 90 90 99 Respiratory Rate 16 16 16 Blood Pressure 128/75 Pulse Oximetry 95 95 Oxygen Delivery Room Air 03/20/22 02:10 03/20/22 05:19 03/20/22 08:10 Temperature 97.8 F Pulse Rate 92 93 94 Respiratory Rate 16 16 Blood Pressure 126/71 Pulse Oximetry 94 Oxygen Delivery 03/20/22 08:00 Temperature Pulse Rate Respiratory Rate Blood Pressure Pulse Oximetry Oxygen Delivery Room Air Intake/Output Intake/Output: Intake & Output 03/17/22 03/18/22 03/19/22 03/20/22 23:59 23:59 23:59 23:59 Intake Total 2766 4384 1453 1120 Output Total 1550 1700 2500 Balance 1216 2684 -1047 1120 Meds/Results Medications: Active Medications Generic Name Dose Route Start Last Admin Trade Name Freq PRN Reason Stop Dose Admin Acetaminophen 650 mg 03/11/22 06:33 Acetaminophen 325 Mg Tablet PO Q4H PRN Mild Pain (1-3) or Fever Albuterol 5 mg 03/11/22 08:00 03/20/22 11:44 Albuterol Sulfate Neb 2.5 Mg/3 Ml Inh INHALATION Not Given Q6HRT BK Aspirin 81 mg 03/12/22 08:00 03/20/22 08:11 Aspirin 81 Mg Chewable Tablet PO 81 mg DAILY@0800 BK Administration Atorvastatin Calcium 20 mg 03/13/22 09:00 03/20/22 08:10 Atorvastatin 20 Mg Tablet PO 20 mg DAILY BK Administration Bisacodyl 5 mg 03/12/22 12:13 03/12/22 12:26 Bisacodyl 5 Mg Tablet Ec PO 5 mg QAM PRN Administration Constipation Ceftriaxone Sodium/Dextrose 1 gm in 50 mls @ 100 mls/hr 03/14/22 16:00 03/19/22 17:17 Rocephin 1 Gm/D5w 50 Ml IVPB Infused Q24H BK Infusion Azithromycin 500 mg in 250 mls @ 250 mls/hr 03/14/22 16:00 03/19/22 16:05 Zithromax IVPB Infused Q24H BK Infusion Metronidazole 500 mg in 100 mls @ 100 mls/hr 03/14/22 16:15 03/20/22 06:
[2022-03-21] VITALS (13 sets, daily range): BP systolic 118–137; BP diastolic 71–79; PULSE 71–109; RESP 12–18; TEMP 36.6–36.8; O2SAT 32–98
[2022-03-21] MEDS: IPRATROPIUM BR 0.02% INH SOLN 0.5 MG/2.5 ML VIAL INHALATION ×4 (01:51→20:03)
[2022-03-21] MEDS: ALBUTEROL SULFATE NEB 2.5 MG/3 ML INH 5 MG INHALATION ×4 (01:51→20:03)
[2022-03-21] MEDS: metroNIDAZOLE 500 MG/ISO 100ML 500 MG/100 ML BAG 100 MG IVPB (05:34)
[2022-03-21 06:27] LABS: Basophils Percent Auto 0.3 % (0.2-1.2); Eosinophils Absolute Auto 0.1 K/mm3 (0-0.3); Eosinophils Percent Auto 0.6 % (0-4.4); Hematocrit 34.8 % (42.0-52.0); Hemoglobin 12.1 g/dL (14.0-18.0); Immature Granulocyte Absolute 0.09 K/mm3 (0.00-0.031); Immature Granulocyte Percent A 0.6 % (0-0.5); Lymphocytes Absolute Auto 1.22 K/mm3 (0.9-3.2); Lymphocytes Percent Auto 7.9 % (18.3-44.2); Mean Corpuscular HGB Conc 34.8 g/dl (32-36); Mean Corpuscular Hemoglobin 30.9 pg (26-34); Mean Platelet Volume 11.2 fl (7.4-10.4); Monocytes Absolute Auto 1.1 K/mm3 (0.1-0.6); Monocytes Percent Auto 6.9 % (2.6-8.5); Neutrophils Absolute Auto 12.9 K/mm3 (1.3-6.7); Neutrophils Percent Auto 83.7 % (45.5-73.1); Platelet Count Result 292 k/mm3 (150-375); Red Blood Count 3.91 M/mm3 (4.6-6.20); Red Cell Distribution Width 15.6 % (11.5-14.5); White Blood Count 15.4 K/mm3 (4.5-10.0)
[2022-03-21 07:01] LABS: Alanine Aminotransferase 26 U/L (6-50); Albumin Level 2.8 g/dL (3.5-5.1); Alkaline Phosphatase 40 U/L (38-126); Anion Gap 3 mmol/L (8-16); Aspartate Amino Transferase 36 U/L (17-59); Bilirubin,Total 0.3 mg/dL (0.2-1.3); Blood Urea Nitrogen 28 mg/dL (9-20); Calcium 8.1 mg/dL (8.4-10.2); Carbon Dioxide 26 mmol/L (22-30); Chloride 103 mmol/L (98-107); Estimated CRCL calculation 44 ml/min; Estimated Glomerular Filt Rate > 60; Glucose 130 mg/dL (65-110); Potassium 4.5 mmol/L (3.4-5.0); Sodium 132 mmol/L (137-145)
[2022-03-21] MEDS: METOPROLOL SUCCINATE EXT REL 25 MG TABCR PO (08:35)
[2022-03-21] MEDS: ATORVASTATIN 20 MG TABLET PO (08:35)
[2022-03-21] MEDS: ASPIRIN 81 MG CHEWABLE TABLET PO (08:35)
--- NOTE | 2022-03-21 11:22 | PCDIET ---
Pt to go home on bolus feeds. Consult for tube feeding conversion. Current tube feed is Jevity 1.2 at 75ml/hr. Bolus recommendations: 330 ml 5 x daily, providing 1980 kcals/92 gms protein. Water flush 100 ml with feedings.
--- NOTE | 2022-03-21 17:36 | PM.IMPN ---
Progress Note: A&P Assessment and Plan (1) Pneumonia: Code(s): J18.9 - Pneumonia, unspecified organism Status: Acute Assessment and Plan: Continue IV antibiotics. Today is day 7 can discharge after today. Likely related to aspiration pneumonia. Clinically he is improving. 03/21/2022 interval history: patient has completed 7 days of IV antibiotic is clinically stable, he is on G-tube feeding will be discharged home, will start the patient on bolus feeding assist family manage, if there are no concern tomorrow will discharge the patient. (2) Dementia: Code(s): F03.90 - Unspecified dementia without behavioral disturbance Status: Acute Assessment and Plan: patient remains clinically stable no agitation noted today (3) COPD (chronic obstructive pulmonary disease): Code(s): J44.9 - Chronic obstructive pulmonary disease, unspecified Status: Acute Assessment and Plan: will resume home medication appears compensated (4) Elevated troponin: Code(s): R77.8 - Other specified abnormalities of plasma proteins Status: Acute Assessment and Plan: likely related type 2 MRI. No chest pain. non cardiac (5) Acute kidney injury: Code(s): N17.9 - Acute kidney failure, unspecified Status: Acute Assessment and Plan: Improved. (6) Dysphagia: Code(s): R13.10 - Dysphagia, unspecified Status: Acute Assessment and Plan: Status post G-tube placed. Continue tube feeds. Tube feeds will be needed for greater than 90 days. Plan Discharge once tube feeds can be approved by the insurance Subjective Date/time seen: 03/21/22 17:36 03/21/2022 interval history: patient has completed 7 days of IV antibiotic is clinically stable, he is on G-tube feeding will be discharged home, will start the patient on bolus feeding assist family manage, if there are no concern tomorrow will discharge the patient. Exam Narrative: elderly frail Patient is comfortable, NAD HEENT: eyes are clear and none icteric LUNGS: normal respiratory effort ABD: not distended Lower extremities: no edema SKIN: nonjaundiced Neuro: confused. Objective Data Vital Signs Vital Signs: Vital Signs - 24 hr 03/20/22 19:49 03/20/22 19:50 03/20/22 20:04 Temperature Pulse Rate 97 92 Respiratory Rate 14 14 Blood Pressure Pulse Oximetry 92 Oxygen Delivery Room Air 03/20/22 20:00 03/20/22 22:00 03/21/22 01:55 Temperature 98.9 F Pulse Rate 92 97 89 Respiratory Rate 14 16 14 Blood Pressure 112/63 Pulse Oximetry 92 99 Oxygen Delivery Room Air 03/21/22 02:10 03/21/22 06:00 03/21/22 08:35 Temperature 98.1 F Pulse Rate 92 102 H 102 H Respiratory Rate 14 16 Blood Pressure 118/78 Pulse Oximetry 98 Oxygen Delivery 03/21/22 09:54 03/21/22 09:58 03/21/22 08:30 Temperature Pulse Rate 77 82 Respiratory Rate 12 12 Blood Pressure Pulse Oximetry Oxygen Delivery Room Air 03/21/22 14:29 03/21/22 14:36 03/21/22 14:00 Temperature 98.3 F Pulse Rate 71 75 109 H Respiratory Rate 12 12 18 Blood Pressure 137/79 Pulse Oximetry 32 L Oxygen Delivery Intake/Output Intake/Output: Intake & Output 03/18/22 03/19/22 03/20/22 03/21/22 23:59 23:59 23:59 23:59 Intake Total 4384 1453 1620 1095 Output Total 1700 2500 150 Balance 2684 1047 1470 1095 Meds/Results Medications: Active Medications Generic Name Dose Route Start Last Admin Trade Name Freq PRN Reason Stop Dose Admin Acetaminophen 650 mg 03/11/22 06:33 Acetaminophen 325 Mg Tablet PO Q4H PRN Mild Pain (1-3) or Fever Albuterol 5 mg 03/11/22 08:00 03/21/22 14:28 Albuterol Sulfate Neb 2.5 Mg/3 Ml Inh INHALATION 5 mg Q6HRT BK Administration Aspirin 81 mg 03/12/22 08:00 03/21/22 08:35 Aspirin 81 Mg Chewable Tablet PO 81 mg DAILY@0800 [facility] Administration Atorvastatin Calcium 20 mg 03/13/22
[2022-03-22] VITALS (9 sets, daily range): BP systolic 114–120; BP diastolic 64–78; PULSE 67–99; RESP 14–18; TEMP 36.8; O2SAT 92–98
[2022-03-22] MEDS: ALBUTEROL SULFATE NEB 2.5 MG/3 ML INH 5 MG INHALATION ×3 (01:55→14:53)
[2022-03-22] MEDS: IPRATROPIUM BR 0.02% INH SOLN 0.5 MG/2.5 ML VIAL INHALATION ×3 (01:55→14:53)
[2022-03-22] MEDS: ASPIRIN 81 MG CHEWABLE TABLET PO (10:03)
[2022-03-22] MEDS: ATORVASTATIN 20 MG TABLET PO (10:03)
[2022-03-22] MEDS: AMOXICILLIN/CLAVULANATE K 875-125 MG TAB 1 TABLET PO (11:10)
[2022-03-22] MEDS: METOPROLOL TARTRATE 12.5 MG TABLET PO (11:10)
--- NOTE | 2022-03-22 17:03 | PM.DS ---
DS: Admitting Diagnosis Discharge Date o03/22/2022 Admitting Diagnosis fever DS: Discharge Diagnosis Discharge Diagnosis (1) Pneumonia: Code(s): J18.9 - Pneumonia, unspecified organism Status: Acute Assessment and Plan: Continue IV antibiotics. Today is day 7 can discharge after today. Likely related to aspiration pneumonia. Clinically he is improving. 03/21/2022 interval history: patient has completed 7 days of IV antibiotic is clinically stable, he is on G-tube feeding will be discharged home, will start the patient on bolus feeding assist family manage, if there are no concern tomorrow will discharge the patient. (2) Dementia: Code(s): F03.90 - Unspecified dementia without behavioral disturbance Status: Acute Assessment and Plan: patient remains clinically stable no agitation noted today (3) COPD (chronic obstructive pulmonary disease): Code(s): J44.9 - Chronic obstructive pulmonary disease, unspecified Status: Acute Assessment and Plan: will resume home medication appears compensated (4) Elevated troponin: Code(s): R77.8 - Other specified abnormalities of plasma proteins Status: Acute Assessment and Plan: likely related type 2 MRI. No chest pain. non cardiac (5) Acute kidney injury: Code(s): N17.9 - Acute kidney failure, unspecified Status: Acute Assessment and Plan: Improved. (6) Dysphagia: Code(s): R13.10 - Dysphagia, unspecified Status: Acute Assessment and Plan: Status post G-tube placed. Continue tube feeds. Tube feeds will be needed for greater than 90 days. Plan Discharge once tube feeds can be approved by the insurance DS: Summary Hospital Course Reason for hospitalization: ?fever Narrative: ED-HPI narrative: Patient 86-year-old gentleman who presents to the emergency department with chief complaint of febrile illness.? Patient reports that this evening he woke up started having chills and body aches and felt warm to the touch.? Per the family he is having a bit of a cough father reports no abdominal pain no vomiting patient has dementia therefore history is somewhat limited.? The patient has not had any vomiting or diarrhea patient denies dysuria. ?unfortunately patient is unable to provide detailed review of symptoms or history I spoke with the patient's daughter who is? his caregiver and he lives with her, she stated? patient had been his normal state of health and was able to do his chores until day before yesterday when he felt tired poor appetite and last night he woke her up shivering and felt warm to touch and patient was brought to the emergency department further evaluation, his white count slightly elevated chest x-ray suspicious pneumonia patient started on ceftriaxone and azithromycin however will add Flagyl to cover for any possible aspiration pneumonia, patient urine is clean, blood culture ordered from emergency depart I will follow-up, I also spoke with the patient's daughter and patient is DNR. ?patient admitted? inpatient with pneumonia and fever, patient will stay in hospital for 2 midnights Hospital Course: ?patient has completed 7 days of IV antibiotic is clinically? stable, he is on G-tube feeding will be discharged home, will start the patient on bolus feeding assist family manage, if there are no concern tomorrow will discharge the patient. Patient has completed 7 days of IV antibiotic for aspiration pneumonia, is clinically stable, family has decided to take the patient home, discharge the patient with full and have home health nurse do the voiding trial at home. Time Spent with Patient Time attestation: Total time spent providing and/or coordinating discharge services: Exam Narrative: elderly frail Patient is comfortable, NAD HEENT: eyes are clear and none icteric LUNGS: normal respiratory effort ABD: not distended Lower extremities: no edema SKIN: non
== END 2022-03-22 19:00 | disposition home health service (06) | DRG 178 ==
LOC: ANHED 06:32 → ANHIMU 08:02 → ANH3MED 03-12 18:01
PROVIDERS: Internal Medicine Gastroenterology; Admitting Provider Internal Medicine; Emergency Provider Emergency Medicine; PCP Family Medicine; Visit Provider Family Medicine
PROC: 0DH63UZ Insertion of Feeding Device into Stomach, Percutaneous Approach (ICD-10-PCS; CPT 43246; principal; 2022-03-16 15:30)
DX: J69.0 Pneumonitis due to inhalation of food and vomit (principal); N17.9 Acute kidney failure, unspecified; R13.10 Dysphagia, unspecified; K29.70 Gastritis, unspecified, without bleeding; J44.9 Chronic obstructive pulmonary disease, unspecified; F03.90 Unspecified dementia, unspecified severity, without behavioral disturbance, psychotic disturbance, mood disturbance, and anxiety; R77.8 Other specified abnormalities of plasma proteins; F17.290 Nicotine dependence, other tobacco product, uncomplicated; Z20.822 Contact with and (suspected) exposure to COVID-19; Z66 Do not resuscitate; Z79.82 Long term (current) use of aspirin; Z79.899 Other long term (current) drug therapy; Z88.5 Allergy status to narcotic agent
CPT/HCPCS: 36415; 43246; 71045; 71275; 76775; 80053; 81001; 83605; 83735; 84484; 85025; 87040; 87502; 92611; 93005; 94640; 96361; 96365; 96366; 96367; 96372; 96376; 97110; 97161; 97165; 97530; 97535; 99285; A9270; C9803; G0378; J0456; J0696; J1200; J1630; J2060; J2704; J7030; J7120; Q9967; U0003; U0005

== ENCOUNTER 2022-03-24 23:42 | Observation (INO) | payer MEDICARE, MEDICAID, SELFPAY ==
[2022-03-24 23:43] VITALS: BP 109/70; PULSE 99; RESP 17; TEMP 36.3; O2SAT 95
[2022-03-25] VITALS (10 sets, daily range): BP systolic 109–124; BP diastolic 66–78; PULSE 79–98; RESP 16–20; TEMP 35.9–36.8; O2SAT 91–97; BMI 20.9
[2022-03-25 01:22] LABS: Add Urine Microscopic? NO; Appearance Urine Clear (Clear); Basophils Absolute Auto 0.1 K/mm3 (0.0-0.1); Basophils Percent Auto 0.6 % (0.2-1.2); Bilirubin Urine Negative (Negative); Blood Urine Negative (Negative); Color Urine Yellow (Yellow); Eosinophils Absolute Auto 0.3 K/mm3 (0-0.3); Eosinophils Percent Auto 3.7 % (0-4.4); Glucose Urine UA Negative (Negative); Hematocrit 32.5 % (42.0-52.0); Hemoglobin 11.1 g/dL (14.0-18.0); Immature Granulocyte Absolute 0.05 K/mm3 (0.00-0.031); Immature Granulocyte Percent A 0.6 % (0-0.5); Ketones Urine Negative (Negative); Leukocyte Esterase Ur Negative LEU/UL (Negative); Lymphocytes Absolute Auto 1.39 K/mm3 (0.9-3.2); Lymphocytes Percent Auto 15.5 % (18.3-44.2); Mean Corpuscular HGB Conc 34.2 g/dl (32-36); Mean Corpuscular Volume 90.8 fl (80-100); Mean Platelet Volume 11.5 fl (7.4-10.4); Monocytes Absolute Auto 0.9 K/mm3 (0.1-0.6); Monocytes Percent Auto 10.2 % (2.6-8.5); Neutrophils Absolute Auto 6.3 K/mm3 (1.3-6.7); Neutrophils Percent Auto 69.4 % (45.5-73.1); Nitrate Urine Negative (Negative); Platelet Count Result 387 k/mm3 (150-375); Protein Urine Negative (Negative); Red Blood Count 3.58 M/mm3 (4.6-6.20); Red Cell Distribution Width 15.5 % (11.5-14.5); Urobilinogen Urine 0.2 mg/dL (<2.0)
[2022-03-25 01:25] LABS: Bacteria Urine Trace /hpf; Mucus Urine Rare /lpf; RBC Urine 0-2 /hpf (0-2); WBC Urine 0-3 /hpf
[2022-03-25 01:33] LABS: Alanine Aminotransferase 57 U/L (6-50); Alkaline Phosphatase 43 U/L (38-126); Anion Gap 1 mmol/L (8-16); Aspartate Amino Transferase 56 U/L (17-59); Bilirubin,Total 0.5 mg/dL (0.2-1.3); Blood Urea Nitrogen 29 mg/dL (9-20); Calcium 7.9 mg/dL (8.4-10.2); Carbon Dioxide 29 mmol/L (22-30); Chloride 103 mmol/L (98-107); Estimated Glomerular Filt Rate > 60; Glucose 95 mg/dL (65-110); Sodium 133 mmol/L (137-145)
[2022-03-25] MEDS: CALCIUM GLUCONATE 1,000 MG/10 ML VIAL 1000 MG IV PUSH (02:26)
--- NOTE | 2022-03-25 02:53 | ED.MALEGU ---
HPI - Male Genitourinary General Chief complaint: Urogenital-Male Stated complaint: pulled catheter out? Time Seen by Provider: 03/25/22 00:35 Source: family History of Present Illness HPI Narrative: Family brought patient in concern for Becerra catheter dislodgment. Patient was recently admitted to the hospital found to have an aspiration pneumonia but on antibiotics. Patient also had a PEG tube placed and was discharged home with an indwelling Becerra catheter. Family reports they are unsure as to why the Becerra catheter is in place. And also reported that there is conversations getting patient mated to a rehab facility patient was discharged home with home health. Since patient's been home he has had bowel incontinence as he is too weak to get to the restroom. Family is having a hard time caring for the patient. family reports home health saw the patient and recommended a rehab facility. Patient reports they have been talking to care coordination but is unsure of the timeline regarding facility. Related Data Home Medications Medication Instructions Recorded Confirmed aspirin 81 mg chewable tablet 81 mg PO DAILY 12/18/21 03/25/22 atorvastatin 20 mg tablet 20 mg PO DAILY 12/18/21 03/25/22 Allergies Allergy/AdvReac Type Severity Reaction Status Date / Time morphine AdvReac Agitated Verified 03/24/22 23:46 Review of Systems Review of Systems: ROS unobtainable: Yes unobtainable due to mental status (Patient has history of dementia) PMFSH Past Medical History Medical History COPD (chronic obstructive pulmonary disease) Dementia Surgical History Surgical History History of hernia repair Family History Family History Other Unknown family medical history Social History Social History Years smoked: 68 Smoking status: Former smoker Tobacco type: cigars Second hand tobacco smoke exposure: No Additional smoking assessment comments: 2 cigars per da;y Alcohol intake: unknown Alcohol use details: HEAVY DRINKER IN 20'S-40'S Substance use: unknown Additional living arrangements comments: DAUGHTER Spiritual care concerns: No Exam Narrative: GENERAL: Well-appearing, well-nourished, and in no acute distress. HEAD: Normocephalic, atraumatic. EYES: PERRLA and EOMI. ENT: Nares clear, no rhinorrhea or epistaxis. Mucous membranes moist. NECK: Supple. No masses. No JVD ABDOMEN: Soft, nontender, nondistended EXTREMITIES: Normal range of motion. No edema. SKIN: Warm, dry, no rash. NEURO: No focal deficits. Alert and oriented x3. PSYCH: Normal mood and affect. Course Reevaluation(s) Reevaluation #1: Work-up reviewed with the patient and family given patient family are unable to care for him at home he will be admitted to the hospitalist team. Date: 03/25/22 Time: 02:58 Vital Signs Vital signs: Vital Signs Temperature 36.3 C L 03/24/22 23:43 Pulse Rate 99 03/24/22 23:43 Respiratory Rate 17 03/24/22 23:43 Blood Pressure 109/70 03/24/22 23:43 Pulse Oximetry 95 03/24/22 23:43 Temperature 36.2 C L 03/25/22 04:07 Pulse Rate 82 03/25/22 04:07 Respiratory Rate 20 03/25/22 04:07 Blood Pressure 114/78 03/25/22 04:07 Pulse Oximetry 97 03/25/22 04:07 MDM - Male Genitourinary MDM Narrative Medical decision making narrative: Patient presents with concern for Becerra's dislodgment as well as additional concerns for incontinence and generalized weakness. In Becerra catheter is in place continues to drain urine ultrasound utilized Becerra bulb is in the urinary bladder. Patient does require significant nursing care family reports having to keep up with nursing care patient will be admitted for placement. Lab Data Result diagrams: 03/25/22 01:15
--- NOTE | 2022-03-25 04:04 | ADMGEN ---
This patient, Dominic Lazaro, was admitted to Medical Room 345-01. Patient/family oriented to hospital policies and general routines including ID bracelet, bed and alarms, visiting hours, pain management, procedures, bathroom and other care routines, personal items, smoking policy, room service/diet, and visiting hours. Information on how to activate the Rapid Response Team has been discussed. Patient/Family are encouraged to report perceived risks to care and to ask questions if they do not understand what they are told or what they should do.
--- NOTE | 2022-03-25 15:49 | PM.IMHP ---
H&P: HPI History of Present Illness Date/Time: 03/25/22 15:49 Chief Complaint: generalized weakness Narrative: HPI Narrative: Family brought patient in concern for Becerra catheter dislodgment.? Patient was recently admitted to the hospital found to have an aspiration pneumonia but on antibiotics.? Patient also had a PEG tube placed and was discharged home with an indwelling Becerra catheter.? Family reports they are unsure as to why the Becerra catheter is in place.? And also reported that there is conversations getting patient mated to a rehab facility patient was discharged home with home health.? Since patient's been home he has had bowel incontinence as he is too weak to get to the restroom.? Family is having a hard time caring for the patient. family reports home health saw the patient and recommended a rehab facility.? Patient reports they have been talking to care coordination but is unsure of the timeline regarding facility. patient is well known to I had admitted the patient with fever and aspiration pneumonia and patient was treated IV antibiotics for 7 days and patient was placed Becerra for urinary retention, patient was brought back emergency department is patient had difficulty managing at home, unfortunately patient is a poor historian and unable to provide any review of system, he remains clinically stable he has no fever and does not appear any distress. will continue to monitor, will do the voiding trial and further recommendation to follow. Review of Systems Review of Systems: ROS unobtainable: Yes unobtainable due to medical condition PMFSH Past Medical History Medical History COPD (chronic obstructive pulmonary disease) Dementia Surgical History Surgical History History of hernia repair Family History Family History Other Unknown family medical history Social History Social History Years smoked: 68 Smoking status: Former smoker Tobacco type: cigars Second hand tobacco smoke exposure: No Additional smoking assessment comments: 2 cigars per da;y Alcohol intake: unknown Alcohol use details: HEAVY DRINKER IN 20'S-40'S Substance use: unknown Additional living arrangements comments: DAUGHTER Spiritual care concerns: No Meds Home Medications and Allergies Home Medications Medication Instructions Recorded Confirmed Type aspirin 81 mg chewable tablet 81 mg PO DAILY 12/18/21 03/25/22 History atorvastatin 20 mg tablet 20 mg PO DAILY 12/18/21 03/25/22 History albuterol sulfate 2.5 mg/3 mL 5 mg (6 mL) inhalation Q6HRT #90 mL 03/22/22 03/25/22 Rx (0.083 %) solution for nebulization amoxicillin 500 mg-potassium 1 tablet PO Q8H #15 tabs 03/22/22 03/25/22 Rx clavulanate 125 mg tablet (Augmentin) ipratropium bromide 0.02 % 0.5 mg (2.5 mL) inhalation Q6HRT 03/22/22 03/25/22 Rx solution for inhalation #90 mL metoprolol tartrate 25 mg tablet 12.5 mg PO BID #15 tabs 03/22/22 03/25/22 Rx Allergies Allergy/AdvReac Type Severity Reaction Status Date / Time morphine AdvReac Agitated Verified 03/24/22 23:46 Vital Signs Vital Signs - 24 hr 03/24/22 23:43 03/25/22 02:23 03/25/22 03:15 Temperature 97.4 F L Pulse Rate 99 83 88 Respiratory Rate 17 18 18 Blood Pressure 109/70 111/66 114/71 Pulse Oximetry 95 95 94 Oxygen Delivery 03/25/22 03:37 03/25/22 04:13 03/25/22 04:07 Temperature 97.2 F L Pulse Rate 87 82 Respiratory Rate 18 20 Blood Pressure 109/67 114/78 Pulse Oximetry 95 97 Oxygen Delivery Room Air 03/25/22 08:00 03/25/22 13:21 Temperature Pulse Rate Respiratory Rate Blood Pressure Pulse Oximetry Oxygen Delivery Room Air Room Air Exam Narrative: elderly frail Patient is comfortable, NAD HEENT: eyes are
[2022-03-25] MEDS: AMOXICILLIN/CLAVULANATE K 500-125 MG TAB 1 TABLET PO ×2 (17:08→21:25)
--- NOTE | 2022-03-25 18:51 | PC.NURSE ---
Addendum entered by Mari Mcclellan RN 03/25/22 18:52: Becerra removed at 1600 Original Note: Becerra removed for voiding trial. pt tolerated removal well.
[2022-03-25] MEDS: ALBUTEROL SULFATE NEB 2.5 MG/3 ML INH 5 MG INHALATION (20:24)
[2022-03-25] MEDS: IPRATROPIUM BR 0.02% INH SOLN 0.5 MG/2.5 ML VIAL INHALATION (20:24)
[2022-03-25] MEDS: METOPROLOL TARTRATE 12.5 MG TABLET PO (20:26)
[2022-03-25] MEDS: MELATONIN 5 MG TABLET 10 MG FEED TUBE (20:27)
[2022-03-26] VITALS (10 sets, daily range): BP systolic 114–117; BP diastolic 63; PULSE 76–98; RESP 16–20; TEMP 36.7; O2SAT 95–98; BMI 20.9
[2022-03-26] MEDS: ALBUTEROL SULFATE NEB 2.5 MG/3 ML INH 5 MG INHALATION ×3 (02:42→13:18)
[2022-03-26] MEDS: IPRATROPIUM BR 0.02% INH SOLN 0.5 MG/2.5 ML VIAL INHALATION ×3 (02:42→13:18)
[2022-03-26 05:53] LABS: Hematocrit 31.1 % (42.0-52.0); Hemoglobin 10.6 g/dL (14.0-18.0); Mean Corpuscular HGB Conc 34.1 g/dl (32-36); Mean Corpuscular Hemoglobin 30.9 pg (26-34); Mean Corpuscular Volume 90.7 fl (80-100); Mean Platelet Volume 11.4 fl (7.4-10.4); Platelet Count Result 397 k/mm3 (150-375); Red Blood Count 3.43 M/mm3 (4.6-6.20); Red Cell Distribution Width 15.3 % (11.5-14.5)
[2022-03-26 06:03] LABS: Magnesium 2.4 mg/dL (1.6-2.3)
[2022-03-26] MEDS: AMOXICILLIN/CLAVULANATE K 500-125 MG TAB 1 TABLET PO ×2 (06:26→13:36)
[2022-03-26] MEDS: METOPROLOL TARTRATE 12.5 MG TABLET PO (09:11)
[2022-03-26] MEDS: ATORVASTATIN 20 MG TABLET PO (09:11)
[2022-03-26] MEDS: ASPIRIN 81 MG CHEWABLE TABLET PO (09:19)
--- NOTE | 2022-03-26 12:39 | PM.DS ---
DS: Admitting Diagnosis Discharge Date 03/26/2022 Admitting Diagnosis generalized weakness DS: Discharge Diagnosis Discharge Diagnosis (1) Weakness: Code(s): R53.1 - Weakness Status: Acute Assessment and Plan: HPI Narrative: Family brought patient in concern for Becerra catheter dislodgment.? Patient was recently admitted to the hospital found to have an aspiration pneumonia but on antibiotics.? Patient also had a PEG tube placed and was discharged home with an indwelling Becerra catheter.? Family reports they are unsure as to why the Becerra catheter is in place.? And also reported that there is conversations getting patient mated to a rehab facility patient was discharged home with home health.? Since patient's been home he has had bowel incontinence as he is too weak to get to the restroom.? Family is having a hard time caring for the patient. family reports home health saw the patient and recommended a rehab facility.? Patient reports they have been talking to care coordination but is unsure of the timeline regarding facility. patient is well known to I had admitted the patient with fever and aspiration pneumonia and patient was treated IV antibiotics for 7 days and patient was placed Becerra for urinary retention, patient was brought back emergency department is patient had difficulty managing at home, unfortunately patient is a poor historian and unable to provide any review of system, he remains clinically stable he has no fever and does not appear any distress. will continue to monitor, will do the voiding trial and further recommendation to follow. patient admitted as observation status (2) Dysphagia: Code(s): R13.10 - Dysphagia, unspecified Status: Acute Assessment and Plan: will monitor and have a bedside swallow evaluate (3) Acute kidney injury: Code(s): N17.9 - Acute kidney failure, unspecified Status: Acute Assessment and Plan: most likely secondary to dehydration and poor p.o. intake will gently hydrate the patient and monitor DS: Summary Hospital Course Reason for hospitalization: H&P: HPI History of Present Illness Date/Time: 03/25/22? 15:49 Chief Complaint: ?generalized weakness Narrative: HPI Narrative: Family brought patient in concern for Becerra catheter dislodgment.? Patient was recently admitted to the hospital found to have an aspiration pneumonia but on antibiotics.? Patient also had a PEG tube placed and was discharged home with an indwelling Becerra catheter.? Family reports they are unsure as to why the Becerra catheter is in place.? And also reported that there is conversations getting patient mated to a rehab facility patient was discharged home with home health.? Since patient's been home he has had bowel incontinence as he is too weak to get to the restroom.? Family is having a hard time caring for the patient. family reports home health saw the patient and recommended a rehab facility.? Patient reports they have been talking to care coordination but is unsure of the timeline regarding facility. ?patient is well known to I had admitted the patient with fever and aspiration? pneumonia and patient was treated IV antibiotics for 7 days and patient was placed Becerra for urinary retention, patient was brought back emergency department is patient had difficulty managing at home, unfortunately patient is a poor historian and unable to provide any review of system, he remains clinically stable he has no fever and does not appear any distress. will continue to monitor, will do the voiding trial and further recommendation to follow. Hospital Course: patient is 86-year-old male will just discharged home after being treated with the aspiration pneumonia, family was not able to manage the patient at home and would like patient to be admitted to long term, care trainer has found place for the patient patient remains clinically stable will discharge the patient today. Time
[2022-03-26 14:05] LABS: EDCOVIDSCREEN Negative (Negative)
== END 2022-03-26 18:40 ==
LOC: ANHED 03-25 03:09 → ANH3MED 03-25 04:06
PROVIDERS: Admitting Provider Internal Medicine; Emergency Provider Emergency Medicine; PCP Family Medicine; Visit Provider Family Medicine
DX: R53.1 Weakness (principal); R13.10 Dysphagia, unspecified; N17.9 Acute kidney failure, unspecified; T83.028A Displacement of other urinary catheter, initial encounter; Y84.6 Urinary catheterization as the cause of abnormal reaction of the patient, or of later complication, without mention of misadventure at the time of the procedure; J44.9 Chronic obstructive pulmonary disease, unspecified; F03.90 Unspecified dementia, unspecified severity, without behavioral disturbance, psychotic disturbance, mood disturbance, and anxiety; Z79.82 Long term (current) use of aspirin; Z87.891 Personal history of nicotine dependence; Z79.51 Long term (current) use of inhaled steroids; Z20.822 Contact with and (suspected) exposure to COVID-19
CPT/HCPCS: 36415; 80053; 81003; 83735; 85025; 85027; 87426; 94640; 96365; 96375; 97161; 97165; 99285; A9270; C9803; G0378; J0131; J0610

== ENCOUNTER 2022-04-14 19:21 | Inpatient (IN) | payer MEDICARE, MEDICAID, SELFPAY ==
[2022-04-14] VITALS (14 sets, daily range): BP systolic 92–120; BP diastolic 72–81; PULSE 81–101; RESP 13–23; TEMP 36.1–37.1; O2SAT 94–98
--- NOTE | ~2022-04-14 | US_ITS ---
US abdomen limited INDICATION: Abnormal liver function test PROCEDURE: Realtime right upper abdominal ultrasound. COMPARISON: No prior studies for comparison. FINDINGS: The pancreas is normal without focal mass or pancreatic ductal dilation. Liver echotexture is normal without focal mass or intrahepatic biliary dilatation. There is normal directional flow i n the portal vein. There are gallstones. No gallbladder wall thickening. Common bile duct measures 4 mm. No sonographi c Blackburn's sign, although patient is nonverbal. IMPRESSION: 1: Cholelithiasis. Reviewed, dictated and finalized at location A. IMPRESSION: 1: Cholelithiasis.
--- NOTE | ~2022-04-14 | XR_ITS ---
EXAMINATION: XR chest 1V portable Exam Date/Time: 04/21/2022 14:00 CDT HISTORY: confusion Comparison: 04/14/2022. RESULT: Lines, tubes, and devices: None. Lungs and pleura: Clear. Cardiomediastinal silhouette: Stable. Other: No acute osseous or upper abdominal finding. IMPRESSION: No acute cardiopulmonary process. Reviewed, dictated and finalized at location K.
--- NOTE | ~2022-04-14 | CT_ITS ---
EXAMINATION: CT abdomen pelvis wo con DATE: 04/21/2022 19:03 INDICATION: elevated liver enzymes, confusion TECHNIQUE: Computed tomography (CT) of the abdomen and pelvis was performed without intravenous contr ast. Automated exposure control and iterative reconstruction technique were employed. The dose-length product was 391.05 mGy-cm. COMPARISON: 05/19/2017. FINDINGS: Lower thorax: Respiratory motion. Minimal right lower lung reticulonodular opacities, may represent c hronic aspiration. Coronary artery calcification. Liver: Normal. Biliary/Gallbladder: Gallbladder is partially collapsed. No bile duct dilation. Pancreas: No mass or duct dilation. Spleen: Normal. Adrenals:No mass. Kidneys: Simple left renal cyst. GI tract: No small or large bowel dilation. Appendix not visualized. The rectum is markedly dilated b y formed stool, up to 8.6 cm, with mild surrounding inflammatory change. G-tube, in good position. Mesentery/Peritoneum: No ascites, mass, or free air. Retroperitoneum: No mass. Atherosclerotic abdominal aortic and/or arterial calcifications. Pelvis: The bladder is decompressed by a Becerra. Trace free pelvic fluid. Soft Tissues: Induration and skin thinning posterior the sacrum at the top of the gluteal cleft. Bones: Considerable motion artifact in the lower pelvis and bilateral hips. IMPRESSION: Fecal impaction, with possible early findings of stercoral colitis. Likely sacral decubitus ulcer. Mo tion artifact obscures the pelvis and hips, if there is pelvic or hip pain consider x-ray of the pelv is and bilateral hips for further evaluation. Reviewed, dictated and finalized at location K. IMPRESSION: Fecal impaction, with possible early findings of stercoral colitis. Likely sacr al decubitus ulcer. Motion artifact obscures the pelvis and hips, if there is p elvic or hip pain consider x-ray of the pelvis and bilateral hips for further e valuation.
--- NOTE | ~2022-04-14 | CT_ITS ---
EXAMINATION: CT brain wo con DATE: 04/14/2022 20:09 INDICATION: ams . TECHNIQUE: Computed tomography (CT) of the head was performed without intravenous contrast. The mA wa s adjusted according to patient size. Iterative reconstruction technique was employed. The dose-lengt h product was 605.33 mGy-cm. COMPARISON: 11/11/2020 FINDINGS: No acute intracranial hemorrhage or extra-axial fluid collection. No hydrocephalus, mass, or herniation. No acute ischemic infarct. Unremarkable dural venous sinus attenuation. No acute osseous abnormality. The aerated spaces are clear. Chronic cerebellar and bilateral frontal lobe encephalomalacia. Severe atrophy and moderate chronic w nimco matter change. Atherosclerotic intrarenal calcification. Bilateral lens replacements. IMPRESSION: No acute intracranial process. Reviewed, dictated and finalized at location K.
--- NOTE | ~2022-04-14 | MR_ITS ---
EXAMINATION: MR brain/brain stem wo con DATE: 04/19/2022 17:50 INDICATION: Altered mental status TECHNIQUE: Magnetic resonance imaging (MRI) of the brain and brainstem was performed without intraven ous contrast. Sequences included sagittal and axial T1-weighted SE, axial diffusion-weighted FS SE, a xial T2*-weighted GRE, axial T2-weighted FLAIR, and axial T2-weighted FSE. Apparent diffusion coeffic ient (ADC) maps were created. COMPARISON: 05/03/[address] dated 04/14/2022 FINDINGS: There are no areas of restricted diffusion to suggest acute infarction. 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 No intracranial hemorrhage or abnormal intracra nial mass lesion. There are scattered areas of nonspecific increased T2-weighted signal intensity in the cerebral white matter, predominantly involving the deep and periventricular white matter. There a re no intraparenchymal signal abnormalities seen on the other pulse sequences. Symmetric prominence o f the sulci and ventricles consistent with moderate age-appropriate diffuse cerebral volume loss. The re are no abnormal extra-axial fluid collections. Flow voids are seen in the cerebral arteries on the T2-weighted sequences consistent with their expected patency. Left vertebral artery is dominant. Fátima nges of bilateral intraocular lens replacement. Visualized orbits and soft tissues are unremarkable. IMPRESSION: 1. 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 No acute intracranial process. 2. Age-related changes including moderate diffuse volume loss and moderate scattered nonspecific whit e matter T2 hyperintensity consistent with chronic small vessel ischemic disease. Reviewed, dictated and finalized at location A. IMPRESSION: 1. 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 No acute intracranial process. 2. Age-related changes including moderate diffuse volume loss and moderate scat tered nonspecific white matter T2 hyperintensity consistent with chronic small vessel ischemic disease.
--- NOTE | ~2022-04-14 | XR_ITS ---
EXAMINATION: XR chest 1V portable Exam Date/Time: 04/14/2022 19:50 CDT HISTORY: ams Comparison: 03/11/2022. RESULT: Lines, tubes, and devices: Partially visualized T2. Lungs and pleura: Clear. Cardiomediastinal silhouette: Stable. Other: No acute osseous or upper abdominal finding. IMPRESSION: No acute cardiopulmonary process. Reviewed, dictated and finalized at location K.
--- NOTE | 2022-04-14 19:37 | ECG_ITS ---
Measurements Intervals [place] Rate: 84 P: 82 AK: 182 QRS: -82 QRSD: 78 T: 89 QT: 384 QTc: 455 Interpretive Statements SINUS RHYTHM LOW QRS VOLTAGE- DIFFUSE LEADS BASELINE ARTIFACT- II, III, AVR, AVL, AVF, V1-V2 BORDERLINE ECG Electronically Signed On 04-15-2022 8:05:44 CDT by Bola Cedillo D.O.
--- NOTE | 2022-04-14 19:46 | ED.AMS ---
HPI - Altered Mental Status General Chief Complaint: Altered Mental Status Stated Complaint: AMS since yesterday Time Seen by Provider: 04/14/22 19:28 History of Present Illness HPI narrative: Patient is an 86-year-old male with a history of dementia, COPD, hypertension brought in by EMS from a [facility] due to decreased responsiveness. Unable to get any history from the patient, he is nonverbal and history of dementia. Related Data Home Medications Medication Instructions Recorded Confirmed aspirin 81 mg chewable tablet 81 mg PO DAILY 12/18/21 03/25/22 atorvastatin 20 mg tablet 20 mg PO DAILY 12/18/21 03/25/22 Allergies Allergy/AdvReac Type Severity Reaction Status Date / Time morphine AdvReac Agitated Verified 03/24/22 23:46 Review of Systems Review of Systems: ROS unobtainable: Yes unobtainable due to mental status PMFSH Past Medical History Medical History COPD (chronic obstructive pulmonary disease) Dementia Surgical History Surgical History History of hernia repair Family History Family History Other Unknown family medical history Social History Social History Years smoked: 68 Smoking status: Former smoker Tobacco type: cigars Second hand tobacco smoke exposure: No Additional smoking assessment comments: 2 cigars per da;y Alcohol intake: unknown Alcohol use details: HEAVY DRINKER IN 20'S-40'S Substance use: unknown Additional living arrangements comments: DAUGHTER Spiritual care concerns: No Exam Const: Other: Frail, ill-appearing, moderate distress, lethargic HENMT: Other: Normocephalic atraumatic, dry mucous membranes, patent airway, clear oropharyngeal area Eyes: Other: Pinpoint pupils Resp: Other: No respiratory distress, bibasilar Rales, decreased breath sounds bilaterally Cardio: Other: Regular rate and rhythm, positive for murmur GI: Other: Soft, nondistended, bowel sounds present, feeding tube in place Neuro: Other: Lethargic, nonverbal, unable to follow any commands Extrem: Other: No pedal edema, pulses bilaterally Course Vital Signs Vital signs: Vital Signs Temperature 37.1 C 04/14/22 19:31 Pulse Rate 84 04/14/22 19:31 Respiratory Rate 17 04/14/22 19:31 Blood Pressure 120/77 04/14/22 19:31 Pulse Oximetry 98 04/14/22 19:31 Temperature 37.1 C 04/14/22 19:31 Pulse Rate 84 04/14/22 19:31 Respiratory Rate 22 H 04/14/22 19:58 Blood Pressure 120/77 04/14/22 19:31 Pulse Oximetry 98 04/14/22 19:31 MDM - Altered Mental Status MDM Narrative Medical decision making narrative: Patient has a slight elevated white count of 10.6 on no left shift. His CMP elevated sodium of 150 with a BUN of 47, dehydration causing the hyponatremia. Patient was given IV fluids normal saline 1 bolus x1. Based on his work-up no signs of sepsis, he is not tachycardic, afebrile, normotensive, urinalysis clear and chest x-ray is clear. Patient will be admitted secondary to altered mental status and hyponatremia. Discussed with the hospitalist accepted the admit. Differential Diagnosis Differential diagnosis: Likely altered mental status, dementia, hyponatremia, sepsis and other (Intracerebral hemorrhage) Lab Data Result diagrams: 04/14/22 19:54 04/14/22 19:54 Labs: Lab Results 04/14/22 04/14/22 04/14/22 Range/Units 19:54 19:54 19:54 WBC 10.6 H (4.5-10.0) K/mm3 RBC 3.86 L (4.6-6.20) M/mm3 Hgb 11.9 L (14.0-18.0) g/dL Hct 37.1 L (42.0-52.0) % MCV 96.1 (80-100) fl MCH 30.8 (26-34) pg MCHC 32.1 (32-36) g/dl RDW 15.9 H (11.5-14.5) % Plt Count 228 (150-375) k/mm3 MPV 13.1 H (7.4-10.4) fl Immature Gran % (Auto) 0.3
[2022-04-14 20:01] LABS: Basophils Percent Auto 0.3 % (0.2-1.2); Eosinophils Absolute Auto 0.4 K/mm3 (0-0.3); Hematocrit 37.1 % (42.0-52.0); Hemoglobin 11.9 g/dL (14.0-18.0); Immature Granulocyte Absolute 0.03 K/mm3 (0.00-0.031); Immature Granulocyte Percent A 0.3 % (0-0.5); Immature Platelet Fraction Pct 16.6 % (0.9-11.2); Lymphocytes Absolute Auto 1.58 K/mm3 (0.9-3.2); Lymphocytes Percent Auto 14.9 % (18.3-44.2); Mean Corpuscular HGB Conc 32.1 g/dl (32-36); Mean Corpuscular Hemoglobin 30.8 pg (26-34); Mean Corpuscular Volume 96.1 fl (80-100); Mean Platelet Volume 13.1 fl (7.4-10.4); Monocytes Absolute Auto 0.9 K/mm3 (0.1-0.6); Monocytes Percent Auto 8.8 % (2.6-8.5); Neutrophils Absolute Auto 7.6 K/mm3 (1.3-6.7); Neutrophils Percent Auto 71.7 % (45.5-73.1); Platelet Count Result 228 k/mm3 (150-375); Red Blood Count 3.86 M/mm3 (4.6-6.20); Red Cell Distribution Width 15.9 % (11.5-14.5); White Blood Count 10.6 K/mm3 (4.5-10.0)
[2022-04-14 20:08] LABS: Lactic Acid Reflex 0.9 mmol/L (0.7-2.0)
[2022-04-14 20:09] LABS: Alanine Aminotransferase 42 U/L (6-50); Albumin Level 3.3 g/dL (3.5-5.1); Alkaline Phosphatase 74 U/L (38-126); Anion Gap 7 mmol/L (8-16); Aspartate Amino Transferase 35 U/L (17-59); Bilirubin,Total 0.8 mg/dL (0.2-1.3); Blood Urea Nitrogen 47 mg/dL (9-20); Calcium 8.3 mg/dL (8.4-10.2); Carbon Dioxide 31 mmol/L (22-30); Chloride 112 mmol/L (98-107); Estimated CRCL calculation 38 ml/min; Estimated Glomerular Filt Rate 58; Glucose 109 mg/dL (65-110); Potassium 3.8 mmol/L (3.4-5.0); Sodium 150 mmol/L (137-145)
[2022-04-14 20:11] LABS: INR 1.3; Partial Thromboplastin Time 26.2 SECONDS (22.3-36.8); Prothrombin Time 15.6 Seconds (11.1-14.7)
[2022-04-14] MEDS: SODIUM CHLORIDE 0.9% IV 1,000 ML 999 ML IV CONT (20:18)
[2022-04-14 20:24] LABS: Appearance Urine Clear (Clear); Bilirubin Urine 1+ (Negative); Blood Urine Negative (Negative); Color Urine Yellow (Yellow); Glucose Urine UA Negative (Negative); Ketones Urine Trace mg/dL (Negative); Leukocyte Esterase Ur Negative LEU/UL (Negative); Nitrate Urine Negative (Negative); Protein Urine Trace mg/dL (Negative); Specific Grav Ur 1.025 (1.001-1.035); Urobilinogen Urine 0.2 mg/dL (<2.0)
[2022-04-14 20:27] LABS: RBC Urine 0-2 /hpf (0-2); WBC Urine 0-3 /hpf
[2022-04-14 20:32] LABS: Add Urine Microscopic? YES
--- NOTE | 2022-04-14 21:36 | PM.IMHP ---
H&P: HPI History of Present Illness Date/Time: 04/14/22 21:36 Chief Complaint: altered mental status Narrative: This is an 86-year-old male with past medical history significant for dementia, dysphagia, gastroesophageal reflux disease, status post PEG tube placement, senior care resident. Good patient was brought to the emergency room due to altered mental status being lethargic, obtunded. history has been obtained from daughter who is at bedside and son in low as patient is lethargic unable to give any history. According to daughter patient had been in his usual state of health up until today early in the morning when he seemed to be very sleepy was brought for evaluation to the emergency room. Preliminary workup revealed sodium of 150. A chest x-ray was clear CT of the head with chronic changes no acute intra cranial abnormality chemistry panel creatinine was 1.2. Patient has been admitted for further evaluation, management and treatment. Review of Systems Review of Systems: ROS unobtainable: Yes unobtainable due to mental status PMFSH Past Medical History Medical History COPD (chronic obstructive pulmonary disease) Dementia Surgical History Surgical History History of hernia repair Family History Family History Other Unknown family medical history Social History Social History Years smoked: 68 Smoking status: Unknown if ever smoked Tobacco type: cigars Second hand tobacco smoke exposure: No Additional smoking assessment comments: 2 cigars per da;y Alcohol intake: never Alcohol use details: HEAVY DRINKER IN 20'S-40'S Substance use: never Substance use type: does not use Additional living arrangements comments: DAUGHTER Spiritual care concerns: No Meds Home Medications and Allergies Home Medications Medication Instructions Recorded Confirmed Type aspirin 81 mg chewable tablet 81 mg feeding tube DAILY 12/18/21 04/14/22 History atorvastatin 20 mg tablet 20 mg feeding tube DAILY 12/18/21 04/14/22 History ipratropium bromide 0.02 % 0.5 mg (2.5 mL) inhalation Q6HRT 03/22/22 04/14/22 Rx solution for inhalation #90 mL melatonin 5 mg tablet 10 mg feeding tube HS PRN Insomnia 03/26/22 04/14/22 Rx #30 tabs albuterol sulfate 2.5 mg/3 mL 5 mg inhalation Q6HRT PRN Wheezing 04/14/22 04/14/22 History (0.083 %) solution for nebulization albuterol sulfate 90 mcg/actuation 1 puff inhalation QID 04/14/22 04/14/22 History aerosol inhaler ascorbate calcium (vitamin C) 500 500 mg feeding tube DAILY 04/14/22 04/14/22 History mg tablet metoprolol tartrate 25 mg tablet 12.5 mg feeding tube BID 04/14/22 04/14/22 History multivitamin with minerals 1 cap PO DAILY 04/14/22 04/14/22 History Allergies Allergy/AdvReac Type Severity Reaction Status Date / Time morphine AdvReac Agitated Verified 04/14/22 23:04 Vital Signs Vital Signs - 24 hr 04/14/22 19:31 04/14/22 19:58 Temperature 98.8 F Pulse Rate 84 Respiratory Rate 17 22 H Blood Pressure 120/77 Pulse Oximetry 98 Exam Narrative: Patient is laying in a stretcher Const: General: comfortable, no acute distress, well developed, ill appearing acutely, lethargic and patient obtunded Nutritional Appearance: cachectic Orientation/consciousness: patient oriented x3 HENMT: Head: normocephalic, atraumatic and other ( bilateral temporal muscle wasting) Face and sinus: normal facial exam Eyes: General: appearance normal, both eyes and all related structures Sclera: sclerae normal Pupils: Equal, round and reactive pupils present EOM: EOMs intact bilaterally Neck: Neck: full ROM, no lymphadenopathy and no JVD Thyroid: thyroid normal Lymphatic: no lymphadenopathy noted Resp: Effort & Inspection: nor
[2022-04-14] MEDS: LACTATED RINGERS 1,000 ML 90 ML IV CONT (21:48)
--- NOTE | 2022-04-14 22:30 | ADMGEN ---
This patient, Dominic Lazaro, was admitted to Medical Room 257-01. Patient/family oriented to hospital policies and general routines including ID bracelet, bed and alarms, visiting hours, pain management, procedures, bathroom and other care routines, personal items, smoking policy, room service/diet, and visiting hours. Information on how to activate the Rapid Response Team has been discussed. Patient/Family are encouraged to report perceived risks to care and to ask questions if they do not understand what they are told or what they should do.
[2022-04-14 22:36] LABS: SARS-CoV-2 RNA PCR Negative
[2022-04-15] VITALS (13 sets, daily range): BP systolic 104–115; BP diastolic 55–78; PULSE 69–96; RESP 14–20; TEMP 36.2–36.6; O2SAT 93–100
[2022-04-15 02:21] LABS: Anion Gap 3 mmol/L (8-16); Blood Urea Nitrogen 40 mg/dL (9-20); Carbon Dioxide 32 mmol/L (22-30); Chloride 115 mmol/L (98-107); Estimated CRCL calculation 41 ml/min; Estimated Glomerular Filt Rate > 60; Glucose 96 mg/dL (65-110); Potassium 3.7 mmol/L (3.4-5.0); Sodium 150 mmol/L (137-145)
[2022-04-15] MEDS: IPRATROPIUM BR 0.02% INH SOLN 0.5 MG/2.5 ML VIAL INHALATION ×4 (03:16→20:23)
[2022-04-15] MEDS: DEXTROSE 5%/0.45% SOD CHL 1,000 ML 65 ML IV CONT ×2 (03:46→19:22)
[2022-04-15 05:49] LABS: Anion Gap 9 mmol/L (8-16); Blood Urea Nitrogen 34 mg/dL (9-20); Calcium 8.3 mg/dL (8.4-10.2); Carbon Dioxide 27 mmol/L (22-30); Chloride 113 mmol/L (98-107); Estimated CRCL calculation 41 ml/min; Estimated Glomerular Filt Rate > 60; Glucose 100 mg/dL (65-110); Potassium 3.7 mmol/L (3.4-5.0); Sodium 149 mmol/L (137-145)
[2022-04-15] MEDS: ALBUTEROL SULFATE NEB 2.5 MG/3 ML INH 5 MG INHALATION ×3 (07:36→20:25)
[2022-04-15] MEDS: diazePAM INJ (*CRX) 10 MG/2 ML SYRINGE 5 MG IV PUSH (07:46)
--- NOTE | 2022-04-15 09:00 | PM.IMPN ---
Progress Note: A&P Assessment and Plan (1) Acute metabolic encephalopathy: Code(s): G93.41 - Metabolic encephalopathy Status: Acute Assessment and Plan: endocrine/metabolic encephalopathy secondary to hypernatremia Probably related to dehydration, as he does not take anything PO IV fluids on board Trend labs Head CT negative for abnormalities (2) Acute hypernatremia: Code(s): E87.0 - Hyperosmolality and hypernatremia Status: Acute Assessment and Plan: Current Na is 149 Probably related to dehydration cautious normalization of sodium increased free water flushes to 150 cc q.4 hours D5 half-normal saline at 65 an hour Continuous trend of Na Consider nephrology if no improvement Machine Made Shoe Unit Worker consult for tube feeding evaluation (3) Dysphagia: Code(s): R13.10 - Dysphagia, unspecified Status: Acute Assessment and Plan: status post PEG tube placement NPO Continue Jevity 1.2 continuous at 30 ml/hr Water flush 150ml Q4H Machine Made Shoe Unit Worker consulted for further feeding recommendation (4) COPD (chronic obstructive pulmonary disease): Code(s): J44.9 - Chronic obstructive pulmonary disease, unspecified Status: Acute Assessment and Plan: not actively wheezing continue home meds Trend respiratory status Plan Will order PT/OT when appropriate 20 minutes was taken with family for further history and planning of care Time Spent With Patient Time with patient: Greater than 35 minutes Subjective Date/time seen: 04/15/22 09:00 Interval history: 04/15/22899 Patient was quite out of it since patient got really agitated and was given some Valium. Family was in the room daughter and son-in-law. Patient gave some review of systems however a complete review of systems unable to be obtained due to mental status. According to the daughter the patient has been at [facility] and for the last 4 days she has been stating that she does not feel like he is getting enough fluids and that his urine looked dark and red and demanded that they do a urine screen. She also stated that they will feed him lying flat. Or poorly they have changes feedings he was doing bolus feedings of 330 mils 5 times a day with 100 water flush 5 times a day and they switched him to to 120 mL q.4 with 50 mL water flush you for. Recently they did change him to continuous however she did not know the dose of that at that time. She also stated that he has been walking by himself 50-75 feet. She would like to see about getting him transferred to a different facility for the rest of his rehab. She also stated that she would like speech therapy to come and re-evaluate because the patient would like to eat. She also stated that the speech therapy at the facility was giving him suckers and small things. 04/14/22? 21:36 ?This is an 86-year-old male with past medical history significant for dementia, dysphagia, gastroesophageal reflux disease, status post PEG tube placement, long-term resident.? Good patient was brought to the emergency room due to altered mental status being lethargic, obtunded. history has been obtained from daughter who is at bedside and son in low as patient is lethargic unable to give any history.? According to daughter patient had been in his usual state of health up until today early in the morning when he seemed to be very sleepy was brought for evaluation to the emergency room.? Preliminary workup revealed sodium of 150.? A chest x-ray was clear CT of the head with chronic changes no acute intra cranial abnormality chemistry panel creatinine was 1.2.? Patient has been admitted for further evaluation, management and treatment. Review of Systems Review of Systems: All systems reviewed & are unremarkable except as noted in HPI and below ROS unobtainable: Yes unobtainable due to m
[2022-04-15] MEDS: ATORVASTATIN 20 MG TABLET FEED TUBE (09:28)
[2022-04-15] MEDS: ASPIRIN 81 MG CHEWABLE TABLET FEED TUBE (09:28)
[2022-04-15] MEDS: THERAPEUTIC MULTIVITAMINS/MINERALS TAB (*BKC) 1 TABLET PO (09:28)
[2022-04-15] MEDS: ASCORBIC ACID 500 MG TABLET FEED TUBE (09:28)
[2022-04-15] MEDS: METOPROLOL TARTRATE 12.5 MG TABLET FEED TUBE ×2 (09:28→20:45)
--- NOTE | 2022-04-15 11:01 | PCSTNOTE ---
ST attempted to complete BSE at 10:55, but patient would not arouse.
[2022-04-15] MEDS: ALBUTEROL SULFATE NEB 2.5 MG/0.5 ML INH (20:25)
[2022-04-15] MEDS: MELATONIN 5 MG TABLET 10 MG FEED TUBE (20:45)
[2022-04-16] VITALS (14 sets, daily range): BP systolic 101–122; BP diastolic 69–80; PULSE 70–103; RESP 12–22; TEMP 36.1–37.1; O2SAT 94–100; BMI 22.4
[2022-04-16] MEDS: IPRATROPIUM BR 0.02% INH SOLN 0.5 MG/2.5 ML VIAL INHALATION ×4 (03:11→20:45)
[2022-04-16] MEDS: ALBUTEROL SULFATE NEB 2.5 MG/3 ML INH 5 MG INHALATION ×4 (03:12→20:45)
[2022-04-16 05:44] LABS: Basophils Percent Auto 0.2 % (0.2-1.2); Eosinophils Absolute Auto 0.3 K/mm3 (0-0.3); Eosinophils Percent Auto 3.1 % (0-4.4); Hematocrit 34.2 % (42.0-52.0); Hemoglobin 10.9 g/dL (14.0-18.0); Immature Granulocyte Absolute 0.05 K/mm3 (0.00-0.031); Immature Granulocyte Percent A 0.5 % (0-0.5); Lymphocytes Absolute Auto 1.73 K/mm3 (0.9-3.2); Lymphocytes Percent Auto 15.6 % (18.3-44.2); Mean Corpuscular HGB Conc 31.9 g/dl (32-36); Mean Corpuscular Hemoglobin 30.8 pg (26-34); Mean Corpuscular Volume 96.6 fl (80-100); Mean Platelet Volume 12.9 fl (7.4-10.4); Monocytes Absolute Auto 0.9 K/mm3 (0.1-0.6); Monocytes Percent Auto 8.2 % (2.6-8.5); Neutrophils Percent Auto 72.4 % (45.5-73.1); Platelet Count Result 187 k/mm3 (150-375); Red Blood Count 3.54 M/mm3 (4.6-6.20); Red Cell Distribution Width 15.7 % (11.5-14.5); White Blood Count 11.1 K/mm3 (4.5-10.0)
[2022-04-16 06:01] LABS: Alanine Aminotransferase 44 U/L (6-50); Albumin Level 2.8 g/dL (3.5-5.1); Alkaline Phosphatase 67 U/L (38-126); Anion Gap 5 mmol/L (8-16); Aspartate Amino Transferase 41 U/L (17-59); Bilirubin,Total 0.6 mg/dL (0.2-1.3); Blood Urea Nitrogen 20 mg/dL (9-20); Calcium 7.9 mg/dL (8.4-10.2); Carbon Dioxide 29 mmol/L (22-30); Chloride 108 mmol/L (98-107); Estimated CRCL calculation 55 ml/min; Estimated Glomerular Filt Rate > 60; Glucose 87 mg/dL (65-110); Magnesium 2.3 mg/dL (1.6-2.3); Potassium 3.9 mmol/L (3.4-5.0); Sodium 142 mmol/L (137-145)
--- NOTE | 2022-04-16 09:00 | PCSTNOTE ---
Please refer to the Bedside Swallow Evaluation in the EMR. Please note, silent aspiration cannot be ruled out at bedside.
--- NOTE | 2022-04-16 10:00 | PM.IMPN ---
Progress Note: A&P Assessment and Plan (1) Acute metabolic encephalopathy: Code(s): G93.41 - Metabolic encephalopathy Status: Acute Assessment and Plan: endocrine/metabolic encephalopathy secondary to hypernatremia Probably related to dehydration, as he does not take anything PO IV fluids on board Trend labs Head CT negative for abnormalities (2) Acute hypernatremia: Code(s): E87.0 - Hyperosmolality and hypernatremia Status: Acute Assessment and Plan: Current Na is 142 Probably related to dehydration cautious normalization of sodium Decreased to 50ml with feedings D5 half-normal saline at 65 an hour, stopped at this time Continuous trend of Na Consider nephrology if no improvement Tester Semiconductor Packages consult for tube feeding evaluation (3) Dysphagia: Code(s): R13.10 - Dysphagia, unspecified Status: Acute Assessment and Plan: status post PEG tube placement NPO Continue Jevity 1.2 on bolus feedings Water flush 50ml with feedings Tester Semicon[employer] Packages consulted for further feeding recommendation (4) COPD (chronic obstructive pulmonary disease): Code(s): J44.9 - Chronic obstructive pulmonary disease, unspecified Status: Acute Assessment and Plan: not actively wheezing continue home meds Trend respiratory status Plan Will order PT/OT when appropriate Time Spent With Patient Time with patient: Greater than 35 minutes Subjective Date/time seen: 04/16/22 1000 Interval history: 04/16/22 1000 Patient was sleeping. he does arouse easily, however, he would not answer any of my questions. He does appear comfortable, and does not appear to be in pain. Complete review of systems unable to be obtained due to medical status. 04/15/22 0900 Patient was quite out of it since patient got really agitated and was given some Valium. Family was in the room daughter and son-in-law. Patient gave some review of systems however a complete review of systems unable to be obtained due to mental status. According to the daughter the patient has been at [facility] and for the last 4 days she has been stating that she does not feel like he is getting enough fluids and that his urine looked dark and red and demanded that they do a urine screen. She also stated that they will feed him lying flat. Or poorly they have changes feedings he was doing bolus feedings of 330 mils 5 times a day with 100 water flush 5 times a day and they switched him to to 120 mL q.4 with 50 mL water flush you for. Recently they did change him to continuous however she did not know the dose of that at that time. She also stated that he has been walking by himself 50-75 feet. She would like to see about getting him transferred to a different facility for the rest of his rehab. She also stated that she would like speech therapy to come and re-evaluate because the patient would like to eat. She also stated that the speech therapy at the facility was giving him suckers and small things. 04/14/22? 21:36 ?This is an 86-year-old male with past medical history significant for dementia, dysphagia, gastroesophageal reflux disease, status post PEG tube placement, half-way resident.? Good patient was brought to the emergency room due to altered mental status being lethargic, obtunded. history has been obtained from daughter who is at bedside and son in low as patient is lethargic unable to give any history.? According to daughter patient had been in his usual state of health up until today early in the morning when he seemed to be very sleepy was brought for evaluation to the emergency room.? Preliminary workup revealed sodium of 150.? A chest x-ray was clear CT of the head with chronic changes no acute intra cranial abnormality chemistry panel creatinine was 1.2.? Patient has been admitted for further evaluati
[2022-04-16] MEDS: ATORVASTATIN 20 MG TABLET FEED TUBE (10:34)
[2022-04-16] MEDS: METOPROLOL TARTRATE 12.5 MG TABLET FEED TUBE ×2 (10:34→21:03)
[2022-04-16] MEDS: ASPIRIN 81 MG CHEWABLE TABLET FEED TUBE (10:36)
[2022-04-16] MEDS: ASCORBIC ACID 500 MG TABLET FEED TUBE (10:36)
[2022-04-16] MEDS: ENOXAPARIN 40 MG/0.4 ML SYRINGE SUB-Q (10:44)
[2022-04-16] MEDS: METOCLOPRAMIDE HCL INJ 10 MG/2 ML VIAL 5 MG IV PUSH (13:45)
[2022-04-16] MEDS: DEXTROSE 5%/0.45% SOD CHL 1,000 ML 65 ML IV CONT (17:24)
[2022-04-16] MEDS: MELATONIN 5 MG TABLET 10 MG FEED TUBE (19:55)
[2022-04-17] VITALS (13 sets, daily range): BP systolic 108–119; BP diastolic 41–68; PULSE 82–100; RESP 16–22; TEMP 35.9–36.8; O2SAT 95–100
[2022-04-17] MEDS: IPRATROPIUM BR 0.02% INH SOLN 0.5 MG/2.5 ML VIAL INHALATION ×4 (01:50→20:06)
--- NOTE | 2022-04-17 01:55 | PC.NURSE ---
PT HAS BEEN ATTEMPTING TO CLIMB OUT OF BE THROUGHOUT THE SHIFT. SETTING OFF HIS BED ALARM EVERY FEW MINUTES. HE IS HITTING AND KICKING AT STAFF MEMBERS AND PULLING AT HIS WYATT. I HAVE HAD TO SIT IN THE ROOM WITH THE PT MULTIPLE TIMES TONIGHT IN ORDER TO KEEP THE PT IN BED AND REDIRECT HIM FROM PULLING AT IV AND WYATT.
[2022-04-17] MEDS: ALBUTEROL SULFATE NEB 2.5 MG/3 ML INH 5 MG INHALATION ×4 (02:07→20:06)
[2022-04-17 06:00] LABS: Basophils Percent Auto 0.2 % (0.2-1.2); Eosinophils Absolute Auto 0.4 K/mm3 (0-0.3); Eosinophils Percent Auto 3.5 % (0-4.4); Hemoglobin 11.2 g/dL (14.0-18.0); Immature Granulocyte Absolute 0.11 K/mm3 (0.00-0.031); Immature Granulocyte Percent A 1.1 % (0-0.5); Immature Platelet Fraction Pct 18.5 % (0.9-11.2); Lymphocytes Absolute Auto 1.68 K/mm3 (0.9-3.2); Lymphocytes Percent Auto 16.2 % (18.3-44.2); Mean Corpuscular Hemoglobin 30.9 pg (26-34); Mean Corpuscular Volume 96.4 fl (80-100); Mean Platelet Volume 13.1 fl (7.4-10.4); Monocytes Percent Auto 9.3 % (2.6-8.5); Neutrophils Absolute Auto 7.2 K/mm3 (1.3-6.7); Neutrophils Percent Auto 69.7 % (45.5-73.1); Platelet Count Result 205 k/mm3 (150-375); Red Blood Count 3.63 M/mm3 (4.6-6.20); Red Cell Distribution Width 15.3 % (11.5-14.5); White Blood Count 10.4 K/mm3 (4.5-10.0)
[2022-04-17 06:21] LABS: Alanine Aminotransferase 59 U/L (6-50); Albumin Level 2.9 g/dL (3.5-5.1); Alkaline Phosphatase 66 U/L (38-126); Anion Gap 5 mmol/L (8-16); Aspartate Amino Transferase 49 U/L (17-59); Bilirubin,Total 0.5 mg/dL (0.2-1.3); Blood Urea Nitrogen 18 mg/dL (9-20); Calcium 7.9 mg/dL (8.4-10.2); Carbon Dioxide 28 mmol/L (22-30); Chloride 105 mmol/L (98-107); Estimated CRCL calculation 55 ml/min; Estimated Glomerular Filt Rate > 60; Glucose 108 mg/dL (65-110); Magnesium 2.2 mg/dL (1.6-2.3); Potassium 4.6 mmol/L (3.4-5.0); Sodium 138 mmol/L (137-145)
[2022-04-17] MEDS: ENOXAPARIN 40 MG/0.4 ML SYRINGE SUB-Q (09:36)
[2022-04-17] MEDS: METOPROLOL TARTRATE 12.5 MG TABLET FEED TUBE ×2 (09:36→20:10)
[2022-04-17] MEDS: ASCORBIC ACID 500 MG TABLET FEED TUBE (09:36)
[2022-04-17] MEDS: ATORVASTATIN 20 MG TABLET FEED TUBE (09:36)
[2022-04-17] MEDS: THERAPEUTIC MULTIVITAMINS/MINERALS TAB (*BKC) 1 TABLET PO (09:36)
[2022-04-17] MEDS: ASPIRIN 81 MG CHEWABLE TABLET FEED TUBE (09:36)
--- NOTE | 2022-04-17 11:16 | PCNFU ---
Nutrition Follow-Up Complete: Suboptimal enteral nutrition as related to wound as evidenced by stage II PU Goal: Meet estimated nutritional needs Patient is meeting current goal. We will continue current goal. Pt current nutrition is Jevity 1.2 bolus feedings of 330 ml 5 x daily Last recorded weight is 65 kg, stable Bowel Motility:+Bm reported 04/16 Labs Reviewed:Alb 2.9,Hct 35.0,Hgb 11.2 Meds Noted:Vitamin C, Lipitor, Lovenox, Atrovent,Lopressor, MVI Skin: Stage III Pressure ulcer-coccyx. Additional Notes: Patient is tolerating tube feedings of Jevity 1.2 bolus feedings of 330 ml 5 x daily, providing 1980 kcals/91 gms protein. Meeting 100% kcals and protein needs. Cabrera BID for wound healing providing an additional 90 kcals and 2.5 gms protein. Free water flush 100 ml with feedings. Bedside Swallow ordered yesterday recommending non oral feedings. Agree with diet orders. Will monitor every Saturday and Saturday.
--- NOTE | 2022-04-17 12:15 | PM.IMPN ---
Progress Note: A&P Assessment and Plan (1) Acute metabolic encephalopathy: Code(s): G93.41 - Metabolic encephalopathy Status: Acute Assessment and Plan: endocrine/metabolic encephalopathy secondary to hypernatremia Probably related to dehydration, as he does not take anything PO IV fluids on board Trend labs Head CT negative for abnormalities does not seem to be better mentally Give one dose of valium tonight to straighten out sleep wake cycle (2) Acute hypernatremia: Code(s): E87.0 - Hyperosmolality and hypernatremia Status: Acute Assessment and Plan: Current Na is 138 Probably related to dehydration cautious normalization of sodium Decreased to 50ml with feedings D5 half-normal saline at 65 an hour, stopped at this time Continuous trend of Na Consider nephrology if no improvement Heel Pricker consult for tube feeding evaluation (3) Dysphagia: Code(s): R13.10 - Dysphagia, unspecified Status: Acute Assessment and Plan: status post PEG tube placement NPO Continue Jevity 1.2 on bolus feedings Water flush 50ml with feedings Heel Pricker consulted for further feeding recommendation (4) COPD (chronic obstructive pulmonary disease): Code(s): J44.9 - Chronic obstructive pulmonary disease, unspecified Status: Acute Assessment and Plan: not actively wheezing continue home meds Trend respiratory status Plan Will order PT/OT when appropriate Time Spent With Patient Time with patient: Greater than 35 minutes Subjective Date/time seen: 04/17/221214 Interval history: 04/17/221214 patient seems to be more unarousable in the morning however does come to in the afternoon. When I talked to the nursing staff they say that he does not sleep throughout the night. Patient does seem to be comfortable however they say at night he becomes very ant inserts upon at everything. I did go and re-evaluate the patient this afternoon. He is still not talking but seems to be more alert. It seems that his sleep wake cycle is not accurate. This could also be why he becomes rambunctious with the staff at night. 04/16/22 1000 Patient was sleeping. he does arouse easily, however, he would not answer any of my questions. He does appear comfortable, and does not appear to be in pain. Complete review of systems unable to be obtained due to medical status. 04/15/22 0900 Patient was quite out of it since patient got really agitated and was given some Valium. Family was in the room daughter and son-in-law. Patient gave some review of systems however a complete review of systems unable to be obtained due to mental status. According to the daughter the patient has been at [facility] and for the last 4 days she has been stating that she does not feel like he is getting enough fluids and that his urine looked dark and red and demanded that they do a urine screen. She also stated that they will feed him lying flat. Or poorly they have changes feedings he was doing bolus feedings of 330 mils 5 times a day with 100 water flush 5 times a day and they switched him to to 120 mL q.4 with 50 mL water flush you for. Recently they did change him to continuous however she did not know the dose of that at that time. She also stated that he has been walking by himself 50-75 feet. She would like to see about getting him transferred to a different facility for the rest of his rehab. She also stated that she would like speech therapy to come and re-evaluate because the patient would like to eat. She also stated that the speech therapy at the facility was giving him suckers and small things. 04/14/22? 21:36 ?This is an 86-year-old male with past medical history significant for dementia, dysphagia, gastroesophageal reflux disease, status post PEG tube placement, nurs
[2022-04-17] MEDS: diazePAM INJ (*CRX) 10 MG/2 ML SYRINGE 5 MG IV PUSH (20:10)
[2022-04-17] MEDS: DEXTROSE 5%/0.45% SOD CHL 1,000 ML 65 ML IV CONT (20:23)
[2022-04-18] VITALS (15 sets, daily range): BP systolic 103–121; BP diastolic 53–70; PULSE 76–105; RESP 16–22; TEMP 36.8–37; O2SAT 92–100
[2022-04-18] MEDS: IPRATROPIUM BR 0.02% INH SOLN 0.5 MG/2.5 ML VIAL INHALATION ×4 (02:13→20:30)
[2022-04-18] MEDS: ALBUTEROL SULFATE NEB 2.5 MG/3 ML INH 5 MG INHALATION ×4 (02:14→20:30)
[2022-04-18 06:02] LABS: Basophils Percent Auto 0.2 % (0.2-1.2); Eosinophils Absolute Auto 0.3 K/mm3 (0-0.3); Eosinophils Percent Auto 2.4 % (0-4.4); Hematocrit 33.5 % (42.0-52.0); Hemoglobin 11.4 g/dL (14.0-18.0); Immature Granulocyte Absolute 0.08 K/mm3 (0.00-0.031); Immature Granulocyte Percent A 0.7 % (0-0.5); Lymphocytes Absolute Auto 1.92 K/mm3 (0.9-3.2); Lymphocytes Percent Auto 17.3 % (18.3-44.2); Mean Corpuscular Hemoglobin 31.6 pg (26-34); Mean Corpuscular Volume 92.8 fl (80-100); Neutrophils Absolute Auto 7.8 K/mm3 (1.3-6.7); Neutrophils Percent Auto 70.4 % (45.5-73.1); Platelet Count Result 210 k/mm3 (150-375); Red Blood Count 3.61 M/mm3 (4.6-6.20); Red Cell Distribution Width 15.3 % (11.5-14.5); White Blood Count 11.1 K/mm3 (4.5-10.0)
[2022-04-18 06:24] LABS: Alanine Aminotransferase 66 U/L (6-50); Albumin Level 2.9 g/dL (3.5-5.1); Alkaline Phosphatase 64 U/L (38-126); Anion Gap 7 mmol/L (8-16); Aspartate Amino Transferase 50 U/L (17-59); Bilirubin,Total 0.6 mg/dL (0.2-1.3); Blood Urea Nitrogen 18 mg/dL (9-20); Calcium 7.9 mg/dL (8.4-10.2); Carbon Dioxide 25 mmol/L (22-30); Chloride 103 mmol/L (98-107); Estimated CRCL calculation 55 ml/min; Estimated Glomerular Filt Rate > 60; Glucose 101 mg/dL (65-110); Magnesium 2.1 mg/dL (1.6-2.3); Potassium 4.3 mmol/L (3.4-5.0); Sodium 135 mmol/L (137-145)
--- NOTE | 2022-04-18 08:45 | PM.IMPN ---
Progress Note: A&P Assessment and Plan (1) Acute metabolic encephalopathy: Code(s): G93.41 - Metabolic encephalopathy Status: Acute Assessment and Plan: endocrine/metabolic encephalopathy secondary to hypernatremia Probably related to dehydration, as he does not take anything PO IV fluids on board Trend labs Head CT negative for abnormalities does not seem to be better mentally Give one dose of valium tonight to straighten out sleep wake cycle (2) Acute hypernatremia: Code(s): E87.0 - Hyperosmolality and hypernatremia Status: Acute Assessment and Plan: Current Na is 135 Probably related to dehydration cautious normalization of sodium Decreased to 50ml with feedings D5 half-normal saline at 65 an hour, stopped at this time Continuous trend of Na Consider nephrology if no improvement Spray Drier Operator Helper consult for tube feeding evaluation (3) Dysphagia: Code(s): R13.10 - Dysphagia, unspecified Status: Acute Assessment and Plan: status post PEG tube placement NPO Continue Jevity 1.2 on bolus feedings Water flush 50ml with feedings Spray Drier Operator Helper consulted for further feeding recommendation (4) COPD (chronic obstructive pulmonary disease): Code(s): J44.9 - Chronic obstructive pulmonary disease, unspecified Status: Acute Assessment and Plan: not actively wheezing continue home meds Trend respiratory status Plan Will order PT/OT when appropriate Time Spent With Patient Time with patient: Greater than 35 minutes Subjective Date/time seen: 04/18/22 0845 Interval history: 04/18/22 0845 Patient did seem more awake today. He did try to respond to me, however, the patients baseline is a&o x 3. He does walk and the day before he came here he was walking 75 feet without help. He also was able to work with speech and was being advanced diet olvera, and was up to suckers. will get an MRI in the am to e 04/17/22 1215 patient seems to be more unarousable in the morning however does come to in the afternoon. When I talked to the nursing staff they say that he does not sleep throughout the night. Patient does seem to be comfortable however they say at night he becomes very ant inserts upon at everything. I did go and re-evaluate the patient this afternoon. He is still not talking but seems to be more alert. It seems that his sleep wake cycle is not accurate. This could also be why he becomes rambunctious with the staff at night. 04/16/22 1000 Patient was sleeping. he does arouse easily, however, he would not answer any of my questions. He does appear comfortable, and does not appear to be in pain. Complete review of systems unable to be obtained due to medical status. 04/15/22 0900 Patient was quite out of it since patient got really agitated and was given some Valium. Family was in the room daughter and son-in-law. Patient gave some review of systems however a complete review of systems unable to be obtained due to mental status. According to the daughter the patient has been at [facility] and for the last 4 days she has been stating that she does not feel like he is getting enough fluids and that his urine looked dark and red and demanded that they do a urine screen. She also stated that they will feed him lying flat. Or poorly they have changes feedings he was doing bolus feedings of 330 mils 5 times a day with 100 water flush 5 times a day and they switched him to to 120 mL q.4 with 50 mL water flush you for. Recently they did change him to continuous however she did not know the dose of that at that time. She also stated that he has been walking by himself 50-75 feet. She would like to see about getting him transferred to a different facility for the rest of his rehab. She also stated that she would like speech therapy to com
[2022-04-18] MEDS: ATORVASTATIN 20 MG TABLET FEED TUBE (09:06)
[2022-04-18] MEDS: ASPIRIN 81 MG CHEWABLE TABLET FEED TUBE (09:06)
[2022-04-18] MEDS: ENOXAPARIN 40 MG/0.4 ML SYRINGE SUB-Q (09:06)
[2022-04-18] MEDS: THERAPEUTIC MULTIVITAMINS/MINERALS TAB (*BKC) 1 TABLET FEED TUBE (09:06)
[2022-04-18] MEDS: ASCORBIC ACID 500 MG TABLET FEED TUBE (09:06)
[2022-04-18] MEDS: METOPROLOL TARTRATE 12.5 MG TABLET FEED TUBE ×2 (09:21→21:25)
[2022-04-18] MEDS: MELATONIN 5 MG TABLET 10 MG FEED TUBE (21:28)
[2022-04-19] VITALS (12 sets, daily range): BP systolic 98–119; BP diastolic 56–72; PULSE 90–104; RESP 18–20; TEMP 36–36.9; O2SAT 93–100
[2022-04-19] MEDS: IPRATROPIUM BR 0.02% INH SOLN 0.5 MG/2.5 ML VIAL INHALATION ×4 (02:02→21:10)
[2022-04-19] MEDS: ALBUTEROL SULFATE NEB 2.5 MG/3 ML INH 5 MG INHALATION ×4 (02:02→21:27)
[2022-04-19 06:38] LABS: Basophils Percent Auto 0.3 % (0.2-1.2); Eosinophils Absolute Auto 0.3 K/mm3 (0-0.3); Eosinophils Percent Auto 2.9 % (0-4.4); Hematocrit 33.2 % (42.0-52.0); Hemoglobin 11.1 g/dL (14.0-18.0); Immature Granulocyte Absolute 0.03 K/mm3 (0.00-0.031); Immature Granulocyte Percent A 0.3 % (0-0.5); Lymphocytes Absolute Auto 1.71 K/mm3 (0.9-3.2); Lymphocytes Percent Auto 19.8 % (18.3-44.2); Mean Corpuscular HGB Conc 33.4 g/dl (32-36); Mean Corpuscular Volume 92.7 fl (80-100); Mean Platelet Volume 12.7 fl (7.4-10.4); Neutrophils Absolute Auto 5.7 K/mm3 (1.3-6.7); Neutrophils Percent Auto 65.7 % (45.5-73.1); Platelet Count Result 206 k/mm3 (150-375); Red Blood Count 3.58 M/mm3 (4.6-6.20); Red Cell Distribution Width 15.3 % (11.5-14.5); White Blood Count 8.6 K/mm3 (4.5-10.0)
[2022-04-19 06:57] LABS: Alanine Aminotransferase 82 U/L (6-50); Albumin Level 2.8 g/dL (3.5-5.1); Alkaline Phosphatase 59 U/L (38-126); Anion Gap 3 mmol/L (8-16); Aspartate Amino Transferase 61 U/L (17-59); Bilirubin,Total 0.5 mg/dL (0.2-1.3); Blood Urea Nitrogen 27 mg/dL (9-20); Calcium 7.9 mg/dL (8.4-10.2); Carbon Dioxide 27 mmol/L (22-30); Chloride 103 mmol/L (98-107); Estimated CRCL calculation 55 ml/min; Estimated Glomerular Filt Rate > 60; Glucose 158 mg/dL (65-110); Magnesium 2.1 mg/dL (1.6-2.3); Potassium 4.1 mmol/L (3.4-5.0); Sodium 133 mmol/L (137-145)
[2022-04-19] MEDS: ASCORBIC ACID 500 MG TABLET FEED TUBE (09:23)
[2022-04-19] MEDS: ASPIRIN 81 MG CHEWABLE TABLET FEED TUBE (09:23)
[2022-04-19] MEDS: METOPROLOL TARTRATE 12.5 MG TABLET FEED TUBE ×2 (09:24→20:53)
[2022-04-19] MEDS: ATORVASTATIN 20 MG TABLET FEED TUBE (09:24)
[2022-04-19] MEDS: THERAPEUTIC MULTIVITAMINS/MINERALS TAB (*BKC) 1 TABLET FEED TUBE (09:25)
[2022-04-19] MEDS: ENOXAPARIN 40 MG/0.4 ML SYRINGE SUB-Q (09:25)
--- NOTE | 2022-04-19 12:54 | P.PNIM_ITS ---
Progress Note: A&P Assessment and Plan (1) Acute metabolic encephalopathy: Code(s): G93.41 - Metabolic encephalopathy Status: Acute Assessment and Plan: * Head CT negative for acute findings * Check MRI brain * No significant leukocytosis or fever to suggest infection, UA negative, CXR negative * Vitals stable, unclear what his baseline mental status is (2) Acute hypernatremia: Code(s): E87.0 - Hyperosmolality and hypernatremia Status: Acute Assessment and Plan: * 149 on arrival * Probably related to dehydration * cautious normalization of sodium * D5 half-normal saline given until normalized but then discontinued * Heavy Equipment Rental Manager consult for tube feeding evaluation * Resolved, Na 133 today (3) Dysphagia: Code(s): R13.10 - Dysphagia, unspecified Status: Acute Assessment and Plan: * status post PEG tube placement last month * NPO * Continue Jevity 1.2 on bolus feedings * Water flush 50ml with feedings * Heavy Equipment Rental Manager consulted for further feeding recommendation (4) COPD (chronic obstructive pulmonary disease): Code(s): J44.9 - Chronic obstructive pulmonary disease, unspecified Status: Acute Assessment and Plan: * not actively wheezing * continue home meds Plan Will order PT/OT when appropriate Subjective Date/time seen: 04/19/22 12:54 Interval history: 86-year-old male with past medical history significant for dementia, dysphagia, gastroesophageal reflux disease, dysphagia status post PEG tube placement, [facility] resident, admitted for AMS and hypernatremia. Pt is alert to self only today but speech is difficult to understand. Does not answer questions or follow commands. Further hx limited. Review of Systems Review of Systems: ROS unobtainable: Yes unobtainable due to mental status Exam Narrative: General: NAD, chronically ill appearing, elderly Eyes: PERRL, no scleral icterus HEENT: NCAT, external ears normal, MMM Respiratory: No respiratory distress, Lungs CTA bilaterally, no wheezing Cardiovascular: RRR, no murmur Abdominal: Soft, nontender, non distended, no rebound or guarding Musculoskeletal: Moves all 4 extremities, no edema Neurological: A/Ox1, no facial asymmetry, does not answer questions or follow commands Skin: Warm, dry, no rashes Psychiatric: Confused Objective Data Vital Signs Vital Signs: Vital Signs - 24 hr 04/18/22 13:20 04/18/22 13:28 04/18/22 13:29 Temperature Pulse Rate 80 83 Respiratory Rate 20 20 Blood Pressure Pulse Oximetry 95 Oxygen Delivery Room Air 04/18/22 14:00 04/18/22 19:17 04/18/22 19:56 Temperature 98.2 F 98.6 F Pulse Rate 101 H 83 Respiratory Rate 18 16 Blood Pressure 103/66 109/70 Pulse Oximetry 96 98 Oxygen Delivery Room Air 04/18/22 20:42 04/18/22 20:49 04/18/22 20:50 Temperature Pulse Rate 105 H 105 H 99 Respiratory Rate 20 20 Blood Pressure Pulse Oximetry 92 Oxygen Delivery Room Air 04/18/22 21:25 04/19/22 02:02 04/19/22 02:15 Temperature Pulse Rate 76 99 101 H Respiratory Rate 20 18
--- NOTE | 2022-04-19 12:54 | PM.IMPN ---
Progress Note: A&P Assessment and Plan (1) Acute metabolic encephalopathy: Code(s): G93.41 - Metabolic encephalopathy Status: Acute Assessment and Plan: Head CT negative for acute findings Check MRI brain No significant leukocytosis or fever to suggest infection, UA negative, CXR negative Vitals stable, unclear what his baseline mental status is (2) Acute hypernatremia: Code(s): E87.0 - Hyperosmolality and hypernatremia Status: Acute Assessment and Plan: 149 on arrival Probably related to dehydration cautious normalization of sodium D5 half-normal saline given until normalized but then discontinued Insulation Estimator consult for tube feeding evaluation Resolved, Na 133 today (3) Dysphagia: Code(s): R13.10 - Dysphagia, unspecified Status: Acute Assessment and Plan: status post PEG tube placement last month NPO Continue Jevity 1.2 on bolus feedings Water flush 50ml with feedings Insulation Estimator consulted for further feeding recommendation (4) COPD (chronic obstructive pulmonary disease): Code(s): J44.9 - Chronic obstructive pulmonary disease, unspecified Status: Acute Assessment and Plan: not actively wheezing continue home meds Plan Will order PT/OT when appropriate Subjective Date/time seen: 04/19/22 12:54 Interval history: 86-year-old male with past medical history significant for dementia, dysphagia, gastroesophageal reflux disease, dysphagia status post PEG tube placement, residential resident, admitted for AMS and hypernatremia. Pt is alert to self only today but speech is difficult to understand. Does not answer questions or follow commands. Further hx limited. Review of Systems Review of Systems: ROS unobtainable: Yes unobtainable due to mental status Exam Narrative: General: NAD, chronically ill appearing, elderly Eyes: PERRL, no scleral icterus HEENT: NCAT, external ears normal, MMM Respiratory: No respiratory distress, Lungs CTA bilaterally, no wheezing Cardiovascular: RRR, no murmur Abdominal: Soft, nontender, non distended, no rebound or guarding Musculoskeletal: Moves all 4 extremities, no edema Neurological: A/Ox1, no facial asymmetry, does not answer questions or follow commands Skin: Warm, dry, no rashes Psychiatric: Confused Objective Data Vital Signs Vital Signs: Vital Signs - 24 hr 04/18/22 13:20 04/18/22 13:28 04/18/22 13:29 Temperature Pulse Rate 80 83 Respiratory Rate 20 20 Blood Pressure Pulse Oximetry 95 Oxygen Delivery Room Air 04/18/22 14:00 04/18/22 19:17 04/18/22 19:56 Temperature 98.2 F 98.6 F Pulse Rate 101 H 83 Respiratory Rate 18 16 Blood Pressure 103/66 109/70 Pulse Oximetry 96 98 Oxygen Delivery Room Air 04/18/22 20:42 04/18/22 20:49 04/18/22 20:50 Temperature Pulse Rate 105 H 105 H 99 Respiratory Rate 20 20 Blood Pressure Pulse Oximetry 92 Oxygen Delivery Room Air 04/18/22 21:25 04/19/22 02:02 04/19/22 02:15 Temperature Pulse Rate 76 99 101 H Respiratory Rate 20 18 Blood Pressure Pulse Oximetry Oxygen Delivery 04/19/22 04:35 04/19/22 09:24 04/19/22 08:00 Temperature 98.4 F Pulse Rate 104 H 100 Respiratory Rate 20 Blood Pressure 98/67 L Pulse Oximetry 96 Oxygen Delivery Room Air 04/19/22 08:05 04/19/22 08:15 04/19/22 10:35 Temperature Pulse Rate 94 95 95 Respiratory Rate 20 19 Blood Pressure Pulse Oximetry 93 Oxygen Delivery Room Air Intake/Output Intake/Output: Intake & Output 04/16/22 04/17/22 04/18/22 04/19/22 23:59 23:59 23:59 23:59 Intake Total 1000 2600 1380 Output Total 1050 1975 2950 1350 Balance -50 010 -9359 -1505 Meds/Results Medications: Active Medications Generic Name Dose Route Start Last Admin Trade Name Dougq PRN Reason Stop Dose Admin Albuterol 5 mg 04/15/22 03:20 04/19/22 0
[2022-04-19] MEDS: MELATONIN 5 MG TABLET 10 MG FEED TUBE (20:53)
[2022-04-20] VITALS (14 sets, daily range): BP systolic 95–121; BP diastolic 69–89; PULSE 89–115; RESP 18–20; TEMP 36.1–36.9; O2SAT 93–98
[2022-04-20] MEDS: ALBUTEROL SULFATE NEB 2.5 MG/3 ML INH 5 MG INHALATION ×5 (02:30→21:00)
[2022-04-20] MEDS: IPRATROPIUM BR 0.02% INH SOLN 0.5 MG/2.5 ML VIAL INHALATION ×4 (02:30→21:00)
[2022-04-20 05:50] LABS: Basophils Absolute Auto 0.1 K/mm3 (0.0-0.1); Basophils Percent Auto 0.5 % (0.2-1.2); Eosinophils Absolute Auto 0.3 K/mm3 (0-0.3); Eosinophils Percent Auto 2.7 % (0-4.4); Hematocrit 36.6 % (42.0-52.0); Hemoglobin 12.3 g/dL (14.0-18.0); Immature Granulocyte Absolute 0.04 K/mm3 (0.00-0.031); Immature Granulocyte Percent A 0.4 % (0-0.5); Lymphocytes Absolute Auto 1.77 K/mm3 (0.9-3.2); Lymphocytes Percent Auto 18.2 % (18.3-44.2); Mean Corpuscular HGB Conc 33.6 g/dl (32-36); Mean Corpuscular Hemoglobin 31.5 pg (26-34); Mean Corpuscular Volume 93.6 fl (80-100); Mean Platelet Volume 12.5 fl (7.4-10.4); Monocytes Absolute Auto 1.2 K/mm3 (0.1-0.6); Monocytes Percent Auto 11.9 % (2.6-8.5); Neutrophils Absolute Auto 6.4 K/mm3 (1.3-6.7); Neutrophils Percent Auto 66.3 % (45.5-73.1); Platelet Count Result 246 k/mm3 (150-375); Red Blood Count 3.91 M/mm3 (4.6-6.20); Red Cell Distribution Width 15.3 % (11.5-14.5); White Blood Count 9.7 K/mm3 (4.5-10.0)
[2022-04-20 06:07] LABS: Alanine Aminotransferase 112 U/L (6-50); Albumin Level 3.1 g/dL (3.5-5.1); Alkaline Phosphatase 68 U/L (38-126); Anion Gap 8 mmol/L (8-16); Aspartate Amino Transferase 76 U/L (17-59); Bilirubin,Total 0.7 mg/dL (0.2-1.3); Blood Urea Nitrogen 27 mg/dL (9-20); Calcium 8.4 mg/dL (8.4-10.2); Carbon Dioxide 26 mmol/L (22-30); Chloride 98 mmol/L (98-107); Estimated CRCL calculation 55 ml/min; Estimated Glomerular Filt Rate > 60; Glucose 95 mg/dL (65-110); Potassium 4.2 mmol/L (3.4-5.0); Sodium 132 mmol/L (137-145)
[2022-04-20] MEDS: ASPIRIN 81 MG CHEWABLE TABLET FEED TUBE (09:13)
[2022-04-20] MEDS: THERAPEUTIC MULTIVITAMINS/MINERALS TAB (*BKC) 1 TABLET FEED TUBE (09:13)
[2022-04-20] MEDS: ATORVASTATIN 20 MG TABLET FEED TUBE (09:13)
[2022-04-20] MEDS: ASCORBIC ACID 500 MG TABLET FEED TUBE (09:13)
[2022-04-20] MEDS: METOPROLOL TARTRATE 12.5 MG TABLET FEED TUBE ×2 (09:13→20:42)
[2022-04-20] MEDS: ENOXAPARIN 40 MG/0.4 ML SYRINGE SUB-Q (09:15)
--- NOTE | 2022-04-20 09:58 | P.PNIM_ITS ---
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 No hx of CVA documented however he does appear to be on aspirin and atorvastatin. Attempted to call POA to discuss medical history but no answer. Does have hx of dementia documented but he is not on any medications for this. * No significant leukocytosis or fever to suggest infection, UA negative, CXR negative * Sodium was mildly elevated on arrival, was thought to be contributing but his sodium has normalized and he continues to be altered. * I do not see any meds listed that would worsen his mental status * Vitals stable, unclear what his baseline mental status is (2) Acute hypernatremia: Code(s): E87.0 - Hyperosmolality and hypernatremia Status: Acute Assessment and Plan: * 149 on arrival * Probably related to dehydration * cautious normalization of sodium * D5 half-normal saline given until normalized but then discontinued * Power Chisel Operator consult for tube feeding evaluation * Resolved, Na 132 today (3) Dysphagia: Code(s): R13.10 - Dysphagia, unspecified Status: Acute Assessment and Plan: * status post PEG tube placement last month * NPO * Continue Jevity 1.2 on bolus feedings * Water flush 50ml with feedings * Power Chisel Operator consulted for further feeding recommendation (4) COPD (chronic obstructive pulmonary disease): Code(s): J44.9 - Chronic obstructive pulmonary disease, unspecified Status: Acute Assessment and Plan: * not actively wheezing * continue home meds Plan Attempted to contact POA today unsuccessfully. Unclear what patient's true baseline is as I am getting multiple different reports. I also feel that hospice may be an appropriate conversation to have with POA if we are able to contact her. Subjective Date/time seen: 04/20/22 09:58 Interval history: 86-year-old male with past medical history significant for dementia, dysphagia, gastroesophageal reflux disease, dysphagia status post PEG tube placement, [facility] resident, admitted for AMS and hypernatremia. Pt is alert to self only today but speech is difficult to understand. Does not answer questions or follow commands. Lethargic. Further hx limited. Review of Systems Review of Systems: ROS unobtainable: Yes unobtainable due to mental status Exam Narrative: General: NAD, chronically ill appearing, elderly, lethargic Eyes: PERRL, no scleral icterus HEENT: NCAT, external ears normal, extremely dry mucous membranes Respiratory: No respiratory distress, Lungs CTA bilaterally, no wheezing Cardiovascular: RRR, no murmur Abdominal: Soft, nontender, non distended, no rebound or guarding Musculoskeletal: Moves all 4 extremities, no edema Neurological: A/Ox1, no facial asymmetry, does not answer questions or follow commands Skin: Warm, dry, no rashes Psychiatric: Confused Objective Data Vital Signs Vital Signs: Vital Signs - 24 hr 04/19/22 10:35 04/19/22 14:35 04/19/22 20:00 Temperature 97.6 F Pulse Rate 95 98 Respiratory Rate 20 Blood Pressure 119/72 Pulse Oximetry 93 100 Oxygen Delivery Room Air Room Air
--- NOTE | 2022-04-20 09:58 | PM.IMPN ---
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 No hx of CVA documented however he does appear to be on aspirin and atorvastatin. Attempted to call POA to discuss medical history but no answer. Does have hx of dementia documented but he is not on any medications for this. No significant leukocytosis or fever to suggest infection, UA negative, CXR negative Sodium was mildly elevated on arrival, was thought to be contributing but his sodium has normalized and he continues to be altered. I do not see any meds listed that would worsen his mental status Vitals stable, unclear what his baseline mental status is (2) Acute hypernatremia: Code(s): E87.0 - Hyperosmolality and hypernatremia Status: Acute Assessment and Plan: 149 on arrival Probably related to dehydration cautious normalization of sodium D5 half-normal saline given until normalized but then discontinued Animal Pathologist consult for tube feeding evaluation Resolved, Na 132 today (3) Dysphagia: Code(s): R13.10 - Dysphagia, unspecified Status: Acute Assessment and Plan: status post PEG tube placement last month NPO Continue Jevity 1.2 on bolus feedings Water flush 50ml with feedings Animal Pathologist consulted for further feeding recommendation (4) COPD (chronic obstructive pulmonary disease): Code(s): J44.9 - Chronic obstructive pulmonary disease, unspecified Status: Acute Assessment and Plan: not actively wheezing continue home meds Plan Attempted to contact POA today unsuccessfully. Unclear what patient's true baseline is as I am getting multiple different reports. I also feel that hospice may be an appropriate conversation to have with POA if we are able to contact her. Subjective Date/time seen: 04/20/22 09:58 Interval history: 86-year-old male with past medical history significant for dementia, dysphagia, gastroesophageal reflux disease, dysphagia status post PEG tube placement, detention resident, admitted for AMS and hypernatremia. Pt is alert to self only today but speech is difficult to understand. Does not answer questions or follow commands. Lethargic. Further hx limited. Review of Systems Review of Systems: ROS unobtainable: Yes unobtainable due to mental status Exam Narrative: General: NAD, chronically ill appearing, elderly, lethargic Eyes: PERRL, no scleral icterus HEENT: NCAT, external ears normal, extremely dry mucous membranes Respiratory: No respiratory distress, Lungs CTA bilaterally, no wheezing Cardiovascular: RRR, no murmur Abdominal: Soft, nontender, non distended, no rebound or guarding Musculoskeletal: Moves all 4 extremities, no edema Neurological: A/Ox1, no facial asymmetry, does not answer questions or follow commands Skin: Warm, dry, no rashes Psychiatric: Confused Objective Data Vital Signs Vital Signs: Vital Signs - 24 hr 04/19/22 10:35 04/19/22 14:35 04/19/22 20:00 Temperature 97.6 F Pulse Rate 95 98 Respiratory Rate 20 Blood Pressure 119/72 Pulse Oximetry 93 100 Oxygen Delivery Room Air Room Air 04/19/22 20:43 04/19/22 20:53 04/19/22 21:10 Temperature 96.8 F L Pulse Rate 100 100 92 Respiratory Rate 18 20 Blood Pressure 118/56 L Pulse Oximetry 100 Oxygen Delivery 04/19/22 21:20 04/20/22 02:30 04/20/22 02:40 Temperature Pulse Rate 90 89 94 Respiratory Rate 20 20 20 Blood Pressure Pulse Oximetry Oxygen Delivery 04/20/22 04:23 04/20/22 08:26 04/20/22 08:28 Temperature 97 F L Pulse Rate 100 98 98 Respiratory Rate 18 20 20 Blood Pressure 121/89 Pulse Oximetry 95 95 Oxygen Delivery Room Air 04/20/22 08:34 04/20/22 09:13 04/20/22 08:00
--- NOTE | 2022-04-20 10:24 | PCPTNOTE ---
Attempted PT evaluation, per RN, she does not want patient to be disturbed at this time. Will follow.
--- NOTE | 2022-04-20 10:52 | PCNFU ---
Nutrition Follow-Up Complete: Suboptimal enteral nutrition as related to wound as evidenced by stage II PU Goal: Meet estimated nutritional needs Patient is progressing towards goal. We will continue current goal. Pt current nutrition is Jevity 1.2 330 ml 5 x daily. Last recorded weight is 56.2 kg, down from 65 kg on admit. Bowel Motility:No BM reported since 04/16, nursing is aware. Labs Reviewed:Na 132, Alb 3.1,Hgb 12.3,BUN 27 Meds Noted:Miralax,Vitamin C, Lipitor, Lovenox, Atrovent,Lopressor, MVI Skin: Stage II-coccyx Additional Notes: Patient remains on bolus feeding of Jevity 1.2-330 ml 5 x daily. Providing 1980 kcals/91 gms protein meeting 100% of kcal and protein needs. Cabrera BID for wound healing providing an additional 90 kcals and 2.5 gms protein. 50 ml flush with feedings. Agree with diet orders. Will monitor every Saturday and Saturday.
[2022-04-20] MEDS: MELATONIN 5 MG TABLET 10 MG FEED TUBE (20:45)
[2022-04-21] VITALS (13 sets, daily range): BP systolic 95–111; BP diastolic 56–71; PULSE 72–110; RESP 16–20; TEMP 36.1–36.8; O2SAT 90–98
[2022-04-21] MEDS: ALBUTEROL SULFATE NEB 2.5 MG/3 ML INH 5 MG INHALATION ×4 (02:43→20:45)
[2022-04-21] MEDS: IPRATROPIUM BR 0.02% INH SOLN 0.5 MG/2.5 ML VIAL INHALATION ×4 (02:44→20:45)
[2022-04-21 06:33] LABS: Basophils Percent Auto 0.2 % (0.2-1.2); Eosinophils Absolute Auto 0.1 K/mm3 (0-0.3); Eosinophils Percent Auto 1.2 % (0-4.4); Hematocrit 36.7 % (42.0-52.0); Hemoglobin 12.2 g/dL (14.0-18.0); Immature Granulocyte Absolute 0.04 K/mm3 (0.00-0.031); Immature Granulocyte Percent A 0.4 % (0-0.5); Lymphocytes Absolute Auto 1.72 K/mm3 (0.9-3.2); Lymphocytes Percent Auto 18.8 % (18.3-44.2); Mean Corpuscular HGB Conc 33.2 g/dl (32-36); Mean Corpuscular Hemoglobin 31.4 pg (26-34); Mean Corpuscular Volume 94.3 fl (80-100); Mean Platelet Volume 12.8 fl (7.4-10.4); Monocytes Absolute Auto 1.3 K/mm3 (0.1-0.6); Monocytes Percent Auto 14.3 % (2.6-8.5); Neutrophils Percent Auto 65.1 % (45.5-73.1); Platelet Count Result 253 k/mm3 (150-375); Red Blood Count 3.89 M/mm3 (4.6-6.20); Red Cell Distribution Width 15.6 % (11.5-14.5); White Blood Count 9.2 K/mm3 (4.5-10.0)
[2022-04-21 07:03] LABS: Anion Gap 4 mmol/L (8-16); Blood Urea Nitrogen 31 mg/dL (9-20); Calcium 8.1 mg/dL (8.4-10.2); Carbon Dioxide 30 mmol/L (22-30); Chloride 101 mmol/L (98-107); Estimated CRCL calculation 43 ml/min; Estimated Glomerular Filt Rate > 60; Glucose 102 mg/dL (65-110); Potassium 4.3 mmol/L (3.4-5.0); Sodium 135 mmol/L (137-145)
[2022-04-21 08:49] LABS: Alanine Aminotransferase 121 U/L (6-50); Albumin Level 3.3 g/dL (3.5-5.1); Alkaline Phosphatase 68 U/L (38-126); Aspartate Amino Transferase 75 U/L (17-59); Bilirubin,Total 0.6 mg/dL (0.2-1.3)
[2022-04-21 08:50] LABS: Ammonia < 9 umol/L (9-30)
[2022-04-21] MEDS: THERAPEUTIC MULTIVITAMINS/MINERALS TAB (*BKC) 1 TABLET FEED TUBE (11:41)
[2022-04-21] MEDS: ENOXAPARIN 40 MG/0.4 ML SYRINGE SUB-Q (11:41)
[2022-04-21] MEDS: ASCORBIC ACID 500 MG TABLET FEED TUBE (11:42)
[2022-04-21] MEDS: ATORVASTATIN 20 MG TABLET FEED TUBE (11:42)
[2022-04-21] MEDS: METOPROLOL TARTRATE 12.5 MG TABLET FEED TUBE ×2 (11:42→20:22)
[2022-04-21] MEDS: ASPIRIN 81 MG CHEWABLE TABLET FEED TUBE (11:42)
--- NOTE | 2022-04-21 13:40 | PM.IMPN ---
Progress Note: A&P Assessment and Plan (1) Acute metabolic encephalopathy: Code(s): G93.41 - Metabolic encephalopathy Status: Acute Assessment and Plan: Pt continues to have enceophalopathy for unclear reasons -MRI negatie for acute stroke -CXR and UA on admission no signs of infection. -Gtube does not appear infected -Liver enzymes up but ammonia negative -Will repeat CXR, obtain abdominal pelvic CT, and draw blood cultures -doubt medication induced. -spoke with daughter about plan of care. She does not want invasive testing such as intubation, bipap, abg etc but okay with above. -May consider hospice -I did discuss pts poor prognosis if he doesn't start to improve soon. (2) Acute hypernatremia: Code(s): E87.0 - Hyperosmolality and hypernatremia Status: Acute Assessment and Plan: Noted on admission and resolved -Probably related to dehydration -continue tube feedings and free water flushes--may need to increase free water. Await vending technician recommendations and above work up (3) Dysphagia: Code(s): R13.10 - Dysphagia, unspecified Status: Acute Assessment and Plan: status post PEG tube placement last month - Continue Jevity 1.2 on bolus feedings -Water flush 50ml with feedings -Car Repairer consulted -last BM 04/20 (4) COPD (chronic obstructive pulmonary disease): Code(s): J44.9 - Chronic obstructive pulmonary disease, unspecified Status: Acute Assessment and Plan: not actively wheezing continue home meds (5) Transaminitis: Code(s): R74.01 - Elevation of levels of liver transaminase levels Status: Acute Assessment and Plan: hepatitis screen negative last year, doubt this is active hepatitis - will obtain abdominal CT - repeat testing tomorrow morning - ammonia negative Plan poor prognosis, discussed this with daughter. Time Spent With Patient Time with patient: 25 - 35 minutes Subjective Date/time seen: 04/21/22 13:40 Interval history: Pt is a 86 y/o male here for confusion. Pt was seen today and does not answer me and does not follow commands. I called his daughter who states she saw him last wednesday 04/11 at the rehab center and pt was doing well. He was able to walk with a walker and they were even thinking he may be able to discharge from rehab in a few weeks. She then saw him saturday 04/14 and he was fatigued and confused. She came and saw him today and states he is not himself. We discussed goals of care and she doesn't want anything invasive that would hurt him (bipap, intubation, abg etc) but would be okay with scans and peripheral blood draw. She agrees with the DNR. Review of Systems Review of Systems: All systems reviewed & are unremarkable except as noted in HPI and below Exam Narrative: General: Elderly pt in bed in NAD but only opens his eyes to my voice HEENT: Very dry mucus membranes Neck: supple Neuro: Opens eyes to my voice but doesn't track or follow commands CV:RRR Resp: Coarse breath sounds bilaterally Abd: Soft, non distended. gtube intact. No pain to palpation. Positive bowel sounds Extremities: No swelling, erythema, or pain to palpation. Objective Data Vital Signs Vital Signs: Vital Signs - 24 hr 04/20/22 14:00 04/20/22 19:48 04/20/22 20:42 Temperature 97.7 F Pulse Rate 98 92 Respiratory Rate 20 Blood Pressure 110/69 Pulse Oximetry 98 Oxygen Delivery Room Air 04/20/22 20:54 04/20/22 21:03 04/20/22 21:03 Temperature 98.4 F Pulse Rate 114 H 111 H Respiratory Rate 20 20 Blood Pressure 95/72 L Pulse Oximetry 95 93 Oxygen Delivery Room Air 04/20/22 21:17 04/21/22 02:45 04/21/22 05:52 Temperature 98.2 F Pulse Rate 115 H 98 100 Respiratory Rate 20 18 16 Blood Pressure 111/69 Pulse Oximetry 97 Oxygen Delivery 04/21/22 02:58 04/21/22 09:05 04/21/22 09:05 Temperature Pulse Rate 100 110 H Res
[2022-04-21 14:30] LABS: Lactic Acid Reflex 1.2 mmol/L (0.7-2.0)
[2022-04-21] MEDS: MELATONIN 5 MG TABLET 10 MG FEED TUBE (20:25)
[2022-04-22] VITALS (13 sets, daily range): BP systolic 100–127; BP diastolic 65–70; PULSE 82–106; RESP 15–24; TEMP 36.7–36.9; O2SAT 92–98
[2022-04-22] MEDS: ALBUTEROL SULFATE NEB 2.5 MG/3 ML INH 5 MG INHALATION ×4 (02:10→20:49)
[2022-04-22] MEDS: IPRATROPIUM BR 0.02% INH SOLN 0.5 MG/2.5 ML VIAL INHALATION ×4 (02:10→20:49)
[2022-04-22 06:50] LABS: Basophils Percent Auto 0.2 % (0.2-1.2); Eosinophils Absolute Auto 0.1 K/mm3 (0-0.3); Eosinophils Percent Auto 1.5 % (0-4.4); Hematocrit 35.9 % (42.0-52.0); Immature Granulocyte Absolute 0.02 K/mm3 (0.00-0.031); Immature Granulocyte Percent A 0.2 % (0-0.5); Lymphocytes Absolute Auto 1.33 K/mm3 (0.9-3.2); Lymphocytes Percent Auto 16.4 % (18.3-44.2); Mean Corpuscular HGB Conc 33.4 g/dl (32-36); Mean Corpuscular Hemoglobin 30.9 pg (26-34); Mean Corpuscular Volume 92.5 fl (80-100); Mean Platelet Volume 12.6 fl (7.4-10.4); Monocytes Absolute Auto 1.3 K/mm3 (0.1-0.6); Monocytes Percent Auto 15.5 % (2.6-8.5); Neutrophils Absolute Auto 5.4 K/mm3 (1.3-6.7); Neutrophils Percent Auto 66.2 % (45.5-73.1); Platelet Count Result 288 k/mm3 (150-375); Red Blood Count 3.88 M/mm3 (4.6-6.20); Red Cell Distribution Width 15.5 % (11.5-14.5); White Blood Count 8.1 K/mm3 (4.5-10.0)
[2022-04-22 07:03] LABS: Alanine Aminotransferase 125 U/L (6-50); Albumin Level 3.2 g/dL (3.5-5.1); Alkaline Phosphatase 66 U/L (38-126); Anion Gap 8 mmol/L (8-16); Aspartate Amino Transferase 82 U/L (17-59); Bilirubin,Total 0.4 mg/dL (0.2-1.3); Blood Urea Nitrogen 36 mg/dL (9-20); CRP 1.6 mg/dL (<1.0); Calcium 8.5 mg/dL (8.4-10.2); Carbon Dioxide 30 mmol/L (22-30); Chloride 98 mmol/L (98-107); Estimated CRCL calculation 48 ml/min; Estimated Glomerular Filt Rate > 60; Glucose 91 mg/dL (65-110); Potassium 4.4 mmol/L (3.4-5.0); Sodium 136 mmol/L (137-145)
--- NOTE | 2022-04-22 09:26 | WPDPN ---
Progress Note: A&P Assessment and Plan (1) Acute metabolic encephalopathy: Code(s): G93.41 - Metabolic encephalopathy Status: Acute Assessment and Plan: Etiology unknown MRI, chest x-ray no acute findings Blood culture pending Her previous no aggressive treatment possible hospice candidate per daughter Ammonia level within limits (2) Acute hypernatremia: Code(s): E87.0 - Hyperosmolality and hypernatremia Status: Acute Assessment and Plan: Resolved Possibly secondary to dehydration (3) Dysphagia: Code(s): R13.10 - Dysphagia, unspecified Status: Acute Assessment and Plan: Continue to 2 feeding with bolus feeding Jevity 1.2 in free water flush he mL with feeding Dietary consulted awaiting recommendations (4) COPD (chronic obstructive pulmonary disease): Code(s): J44.9 - Chronic obstructive pulmonary disease, unspecified Status: Acute Assessment and Plan: Stable Continue albuterol and ipratropium (5) Transaminitis: Code(s): R74.01 - Elevation of levels of liver transaminase levels Status: Acute Assessment and Plan: Slight increase Etiology unknown AST 75>82, [id number]>125 Will continue to trend Subjective Date/time seen: 04/22/22 09:26 Interval history: Patient is in bed with sitter at bedside. Patient is unable to answer questions or follow commands. He does not appear to be in any distress. Review of Systems Review of Systems: ROS unobtainable: Yes unobtainable due to mental status Exam Narrative: General: Frail elderly gentleman no obvious distress noted HEENT: PERRLA, Mucous Membranes Moist and [place], Nares Patent, Sclera Clear Neck: JVD, Supple Pulmonary: Clear to Auscultation, Normal Air Movement Cardiovascular: No Murmurs, Gallops, or Rubs, Regular Rhythm, Regular Rate Abdominal: Abdomen Soft, Non-Distended, Normal Bowel Sounds Extremities: Normal Pulses Integumentary: No Abnormalities Neurological: Unable to follow commands or answer questions Objective Data Vital Signs Vital Signs: Vital Signs - 24 hr 04/21/22 14:55 04/21/22 14:00 04/21/22 19:54 Temperature 97.0 F L 98.1 F Pulse Rate 100 88 80 Respiratory Rate 18 16 20 Blood Pressure 95/56 L 104/71 Pulse Oximetry 98 90 Oxygen Delivery 04/21/22 20:22 04/21/22 20:45 04/21/22 20:54 Temperature Pulse Rate 72 72 Respiratory Rate 18 Blood Pressure Pulse Oximetry 91 Oxygen Delivery Room Air 04/21/22 20:55 04/22/22 02:11 04/22/22 02:13 Temperature Pulse Rate 78 83 82 Respiratory Rate 18 18 18 Blood Pressure Pulse Oximetry Oxygen Delivery 04/22/22 05:03 04/22/22 08:26 04/22/22 08:26 Temperature 98.4 F Pulse Rate 105 H 106 H Respiratory Rate 24 H 20 Blood Pressure 105/68 Pulse Oximetry 97 96 Oxygen Delivery Room Air Intake/Output Intake/Output: Intake & Output 04/19/22 04/20/22 04/21/22 04/22/22 23:59 23:59 23:59 23:59 Intake Total 0 380 760 Output Total 2300 950 650 275 Balance -2300 -950 -270 485 Meds/Results Medications: Active Medications Generic Name Dose Route Start Last Admin Trade Name Freq PRN Reason Stop Dose Admin Albuterol 5 mg 04/15/22 03:20 04/22/22 08:26 Albuterol Sulfate Neb 2.5 Mg/3 Ml Inh INHALATION 5 mg Q6HRT KB Administration Albuterol 1 puff 04/15/22 03:12 Albuterol Sulfate (*Sp) Aerosol 1 Puff INHALATION QIDRT PRN Wheezing Ascorbic Acid 500 mg 04/15/22 09:00 04/21/22 11:42 Ascorbic Acid 500 Mg Tablet FEED TUBE 500 mg DAILY BK Administration Aspirin 81 mg 04/15/22 09:00 04/21/22 11:42 Aspirin 81 Mg Chewable Tablet FEED TUBE 81 mg DAILY BK Administration Atorvastatin Calcium 20 mg 04/15/22 09:00 04/21/22 11:42 Atorvastatin 20 Mg Tablet FEED TUBE 20 mg DAILY BK Administration Docusate Sodium 100 mg 04/22/22 21:00 Docusate Sodium 100 Mg Capsule P
[2022-04-22] MEDS: ENOXAPARIN 40 MG/0.4 ML SYRINGE SUB-Q (09:42)
[2022-04-22] MEDS: ATORVASTATIN 20 MG TABLET FEED TUBE (09:43)
[2022-04-22] MEDS: METOPROLOL TARTRATE 12.5 MG TABLET FEED TUBE ×2 (09:43→21:17)
[2022-04-22] MEDS: ASCORBIC ACID 500 MG TABLET FEED TUBE (09:43)
[2022-04-22] MEDS: ASPIRIN 81 MG CHEWABLE TABLET FEED TUBE (09:43)
--- NOTE | 2022-04-22 09:45 | PCPTNOTE ---
LATE ENTRY; 04-21-22: entered d/c PT eval orders due to: with review of EMR and talking with RN-pt lethargic and declining status, with consult to hospice;
[2022-04-22] MEDS: polyethylene glycoL 3350 17 GM POWD.PACK PO (11:05)
[2022-04-22] MEDS: THERAPEUTIC MULTIVITAMINS/MINERALS TAB (*BKC) 1 TABLET FEED TUBE (11:05)
[2022-04-22] MEDS: SENNOSIDES 8.6 MG TABLET PO (21:17)
[2022-04-22] MEDS: DOCUSATE SODIUM LIQ 100 MG/10 ML UDC PO (21:17)
[2022-04-22] MEDS: MELATONIN 5 MG TABLET 10 MG FEED TUBE (21:17)
[2022-04-23] VITALS (7 sets, daily range): BP systolic 107–143; BP diastolic 61–92; PULSE 71–114; RESP 12–18; TEMP 35.9–36.9; O2SAT 96
[2022-04-23 05:46] LABS: Hematocrit 36.7 % (42.0-52.0); Hemoglobin 12.3 g/dL (14.0-18.0); Mean Corpuscular HGB Conc 33.5 g/dl (32-36); Mean Corpuscular Hemoglobin 31.1 pg (26-34); Mean Corpuscular Volume 92.9 fl (80-100); Mean Platelet Volume 11.9 fl (7.4-10.4); Platelet Count Result 274 k/mm3 (150-375); Red Blood Count 3.95 M/mm3 (4.6-6.20); Red Cell Distribution Width 15.4 % (11.5-14.5); White Blood Count 9.3 K/mm3 (4.5-10.0)
[2022-04-23 05:55] LABS: Anion Gap 7 mmol/L (8-16); Blood Urea Nitrogen 34 mg/dL (9-20); Calcium 8.7 mg/dL (8.4-10.2); Carbon Dioxide 28 mmol/L (22-30); Chloride 101 mmol/L (98-107); Estimated CRCL calculation 48 ml/min; Estimated Glomerular Filt Rate > 60; Glucose 144 mg/dL (65-110); Magnesium 2.4 mg/dL (1.6-2.3); Potassium 4.7 mmol/L (3.4-5.0); Sodium 136 mmol/L (137-145)
--- NOTE | 2022-04-23 08:17 | PM.IMPN ---
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 (2) Acute hypernatremia: Code(s): E87.0 - Hyperosmolality and hypernatremia Status: Acute Assessment and Plan: Resolved (3) Dysphagia: Code(s): R13.10 - Dysphagia, unspecified Status: Acute Assessment and Plan: 04/23: Family has decided to proceed with hospice, they are requesting that tube feeds be discontinued (4) COPD (chronic obstructive pulmonary disease): Code(s): J44.9 - Chronic obstructive pulmonary disease, unspecified Status: Acute Assessment and Plan: stable (5) Transaminitis: Code(s): R74.01 - Elevation of levels of liver transaminase levels Status: Acute Assessment and Plan: Right upper quadrant ultrasound essentially negative, only showed cholelithiasis, LFTs slightly improved today without any change in mentation Plan Acute encephalopathy of unknown etiology, does not appear metabolic, only abnormality is elevated transaminitis without elevated alk phos. All infection markers appear negative, ammonia is negative, kidney function and anion gap are WNL, glucose is normal, albumin is WNL. Urinalysis and blood cultures ordered and pending. Patient is AFVSS. Could be psychological etiology? Catatonia? Brain MRI was WNL and EEG is pending. Electrolytes WNL, phosphorous is pending. TSH pending. Will re-evaluate differential diagnosis after labs ordered today come back. Neuro consult pending. Possible ddx includes advanced dementia without more insidious underlying etiology. 04/23: Discussed all of the above with family extensively at bedside, they would like to proceed with a hospice consultation and discontinue tube feeds Subjective Date/time seen: 04/23/22 08:17 Interval history: Patient is essentially unresponsive. No overnight events noted. No chest pain or shortness of breath. No nausea, vomiting or diarrhea. No fevers or chills. Review of Systems Review of Systems: ROS unobtainable: Yes unobtainable due to mental status Exam Narrative: General: Patient is essentially unresponsive, eyes closed, mouth open breathing all day HEENT: Atraumatic, normocephalic, mucous membranes dry CV: Regular rate and rhythm, S1, S2 Lungs: Coarse breath sounds throughout Abdomen: Soft, nontender, nondistended Extremities: Normal to inspection Skin: No rashes noted, no lesions or wounds seen Objective Data Vital Signs Vital Signs: Vital Signs - 24 hr 04/22/22 08:26 04/22/22 08:26 04/22/22 09:43 Temperature Pulse Rate 106 H 102 H Respiratory Rate 20 Blood Pressure Pulse Oximetry 96 Oxygen Delivery Room Air 04/22/22 09:45 04/22/22 14:13 04/22/22 14:27 Temperature Pulse Rate 102 H 98 96 Respiratory Rate 20 20 20 Blood Pressure Pulse Oximetry 92 Oxygen Delivery Room Air 04/22/22 14:00 04/22/22 20:22 04/22/22 20:51 Temperature 98.1 F 98.3 F Pulse Rate 99 106 H 104 H Respiratory Rate 15 16 22 H Blood Pressure 100/65 127/70 Pulse Oximetry 97 98 95 Oxygen Delivery Room Air 04/22/22 20:45 04/22/22 21:17 04/22/22 20:00 Temperature Pulse Rate 104 H 88 Respiratory Rate 22 H Blood Pressure Pulse Oximetry Oxygen Delivery Room Air 04/23/22 04:46 Temperature 98.5 F Pulse Rate 100 Respiratory Rate 16 Blood Pressure 143/92 H Pulse Oximetry 96 Oxygen Delivery Intake/Output Intake/Output: Intake & Output 04/20/22 04/21/22 04/22/22 04/23/22 23:59 23:59 23:59 23:59 Intake Total 0 380 1953 810 Output Total 950 650 900 575 Balance -675 -115 5091 982
[2022-04-23] MEDS: ALBUTEROL SULFATE NEB 2.5 MG/0.5 ML INH 5 MG ×2 (08:39→14:00)
[2022-04-23] MEDS: IPRATROPIUM BR 0.02% INH SOLN 0.5 MG/2.5 ML VIAL INHALATION ×2 (08:39→13:59)
--- NOTE | 2022-04-23 08:48 | PC.NURSE ---
Visual Display Manager notified Dr. Liborio New neurology is out of office until 04/24/2022 consults will not be completed until then she states she is aware.
[2022-04-23 09:18] LABS: Alanine Aminotransferase 121 U/L (6-50); Albumin Level 3.2 g/dL (3.5-5.1); Alkaline Phosphatase 70 U/L (38-126); Anion Gap 6 mmol/L (8-16); Aspartate Amino Transferase 71 U/L (17-59); Bilirubin,Total 0.4 mg/dL (0.2-1.3); Blood Urea Nitrogen 31 mg/dL (9-20); CRP 1.4 mg/dL (<1.0); Calcium 7.9 mg/dL (8.4-10.2); Carbon Dioxide 29 mmol/L (22-30); Chloride 103 mmol/L (98-107); Estimated CRCL calculation 43 ml/min; Estimated Glomerular Filt Rate > 60; Glucose 102 mg/dL (65-110); Phosphorus 2.8 mg/dL (2.5-4.5); Potassium 4.4 mmol/L (3.4-5.0); Sodium 138 mmol/L (137-145)
[2022-04-23] MEDS: ASPIRIN 81 MG CHEWABLE TABLET FEED TUBE (09:25)
[2022-04-23] MEDS: METOPROLOL TARTRATE 12.5 MG TABLET FEED TUBE (09:25)
[2022-04-23] MEDS: polyethylene glycoL 3350 17 GM POWD.PACK FEED TUBE (09:25)
[2022-04-23] MEDS: THERAPEUTIC MULTIVITAMINS/MINERALS TAB (*BKC) 1 TABLET FEED TUBE (09:25)
[2022-04-23] MEDS: ATORVASTATIN 20 MG TABLET FEED TUBE (09:27)
[2022-04-23] MEDS: ENOXAPARIN 40 MG/0.4 ML SYRINGE SUB-Q (09:27)
[2022-04-23] MEDS: DOCUSATE SODIUM LIQ 100 MG/10 ML UDC FEED TUBE (09:27)
[2022-04-23] MEDS: ASCORBIC ACID 500 MG TABLET FEED TUBE (09:27)
[2022-04-23 09:52] LABS: Procalcitonin 0.2 ng/mL
[2022-04-23 10:38] LABS: Hepatitis B Surface Antigen Negative (Negative)
[2022-04-23 10:44] LABS: HAV RESULT Negative (Negative); Hepatitis B Core IgM Result Negative (Negative)
[2022-04-23 10:55] LABS: Hepatitis C Virus Antibody Negative (Negative)
[2022-04-23 11:13] LABS: Appearance Urine Slightly Cloudy (Clear); Bilirubin Urine Negative (Negative); Color Urine Yellow (Yellow); Glucose Urine UA Negative (Negative); Ketones Urine Trace mg/dL (Negative); Leukocyte Esterase Ur Negative LEU/UL (NEGATIVE); Nitrate Urine Negative (Negative); Protein Urine 1+ mg/dL (Negative); Specific Grav Ur 1.015 (1.001-1.035); pH Urine 7.5 (5.0-9.0)
[2022-04-23 11:26] LABS: Amorphous Sediment Urine Few; Bacteria Urine Trace /hpf; Mucus Urine Rare /lpf; RBC Urine 21-50 /hpf (0-2); WBC Urine 0-3 /hpf (0-3)
[2022-04-23 11:37] LABS: Add Urine Microscopic? YES; Blood Urine Trace-Intact (Negative)
[2022-04-23] MEDS: fentaNYL CITRATE INJ (*CRX) 100 MCG/2 ML VIAL 25 MCG IV PUSH (20:44)
[2022-04-23] MEDS: LORazepam INJ (*CRX) 2 MG/ML VIAL IV PUSH (22:19)
[2022-04-24 04:22] VITALS: BP 102/68; RESP 20; TEMP 36.5
--- NOTE | 2022-04-24 09:18 | PCDIET ---
Tube feeds have been discontinued. Family is proceeding with hospice care. No nutrition recommendations.
--- NOTE | 2022-04-24 10:03 | WPDNEUROLOGY ---
Neurology EEG Report General Information Date of Study: 04/23/22 TEST EEG DIAGNOSIS encephalopathy CONDITION OF RECORDING drowsy and sleep EEG NUMBER [id number] CLINICAL HISTORY patient confused and lethargic. Unable to give any history EEG DESCRIPTION background rhythm consists of low to medium voltage 5 to 7 hertz per 2nd theta admixed with 2 to 3 hertz per 2nd delta activity and superimposed by low-voltage 15 to 18 hertz per 2nd beta. Hypertension not done photic stimulation not done. Non paroxysmal. Nonfocal. Nonlateralizing. IMPRESSION Abnormal record due to the absence of the normal background rhythm and due to the presence of excessive amount of theta and delta activity. These abnormalities of suggestive of underlying organic or metabolic encephalopathy there is no evidence of any paroxysmal discharge. Clinical correlation recommended
[2022-04-24 13:43] VITALS: BP 109/65; PULSE 91; RESP 20; TEMP 36.1; O2SAT 94
[2022-04-24 15:20] LABS: EDCOVIDSCREEN Negative (Negative)
--- NOTE | 2022-04-24 17:32 | PM.DS ---
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 (2) Acute hypernatremia: Code(s): E87.0 - Hyperosmolality and hypernatremia Status: Acute Assessment and Plan: Resolved (3) Dysphagia: Code(s): R13.10 - Dysphagia, unspecified Status: Acute Assessment and Plan: 04/23: Family has decided to proceed with hospice, they are requesting that tube feeds be discontinued (4) COPD (chronic obstructive pulmonary disease): Code(s): J44.9 - Chronic obstructive pulmonary disease, unspecified Status: Acute Assessment and Plan: stable (5) Transaminitis: Code(s): R74.01 - Elevation of levels of liver transaminase levels Status: Acute Assessment and Plan: Right upper quadrant ultrasound essentially negative, only showed cholelithiasis, LFTs slightly improved today without any change in mentation Plan Acute encephalopathy of unknown etiology, does not appear metabolic, only abnormality is elevated transaminitis without elevated alk phos. All infection markers appear negative, ammonia is negative, kidney function and anion gap are WNL, glucose is normal, albumin is WNL. Urinalysis and blood cultures ordered and pending. Patient is AFVSS. Could be psychological etiology? Catatonia? Brain MRI was WNL and EEG is pending. Electrolytes WNL, phosphorous is pending. TSH pending. Will re-evaluate differential diagnosis after labs ordered today come back. Neuro consult pending. Possible ddx includes advanced dementia without more insidious underlying etiology. 04/23: Discussed all of the above with family extensively at bedside, they would like to proceed with a hospice consultation and discontinue tube feeds DS: Summary Hospital Course Hospital Course: 86-year-old male with past medical history significant for dementia, dysphagia, GERD status post PEG tube was brought to the ER for altered mental status. Preliminary workup was revealing only for a sodium of 150 and a creatinine of 1.2 suggesting dehydration due to inadequate free water flushes of his PEG tube at the nursing facility. This was corrected with IV fluids, free water flushes and continuing his tube feeds. 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 Apparently this has been going on for a while, he appears quite combative at times and very confused. Throughout his stay, electrolytes normalized but his symptoms remained unchanged. MRI brain was within normal limits, chest x-ray urinalysis were negative for infection. Liver enzymes mildly elevated but ammonia was normal. No etiology was found for his acute encephalopathy. Procalcitonin and lactic acid were normal. Ultrasound of liver was normal and LFTs remained stable. 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 This was discussed with family extensively. All questions answered. Family opted to proceed with hospice and discontinue tube feedings. Time Spent with Patient Time attestation: Total time spent providing and/or coordinating discharge services: Exam Narrative: General: Patient is essentially unresponsive, eyes closed, mouth open breathing all day HEENT: Atraumatic, normocephalic, mucous membranes dry CV: Regular rate and rhythm, S1, S2 Lungs: Coarse breath sounds throughout Abdomen: Soft, nontender, nondistended Extremities: Normal to inspection Skin: N
== END 2022-04-24 17:15 | disposition hospice, inpatient (51) | DRG 641 ==
LOC: ANHED 20:00 → ANH2MED 21:56
PROVIDERS: Nurse Practitioner; Physician Assistant; Admitting Provider Internal Medicine; Emergency Provider Emergency Medicine; PCP Family Medicine; Visit Provider Student in an Organized Health Care Education/Training Program
DX: E87.0 Hyperosmolality and hypernatremia (principal); G93.40 Encephalopathy, unspecified; R64 Cachexia; Z68.1 Body mass index [BMI] 19.9 or less, adult; Z20.822 Contact with and (suspected) exposure to COVID-19; F03.90 Unspecified dementia, unspecified severity, without behavioral disturbance, psychotic disturbance, mood disturbance, and anxiety; E86.0 Dehydration; E87.1 Hypo-osmolality and hyponatremia; R13.10 Dysphagia, unspecified; K80.20 Calculus of gallbladder without cholecystitis without obstruction; J44.9 Chronic obstructive pulmonary disease, unspecified; K21.9 Gastro-esophageal reflux disease without esophagitis; Z87.891 Personal history of nicotine dependence; Z66 Do not resuscitate; Z93.1 Gastrostomy status
CPT/HCPCS: 36415; 51701; 70450; 70551; 71045; 74176; 76705; 80048; 80053; 80074; 80076; 81001; 82140; 83605; 83735; 84100; 84145; 84443; 85025; 85027; 85055; 85610; 85730; 86140; 87040; 87426; 92610; 93005; 94640; 95816; 96361; 96372; 96374; 96375; 99285; A9270; C9803; G0378; J1650; J2060; J2765; J3010; J3360; J7030; J7120; U0003; U0005